=== PATIENT | female | born 1945 | race Caucasian/White ===

== ENCOUNTER 2016-06-08 13:02 | Inpatient (IN) | payer OTHER ==
[~2016-06-08] VITALS: Ht 157.5 cm; Wt 60.0 kg
[~2016-06-08 13:02] MED LIST: ALEN70TA30 PO; DOCU-144 PO; POLY17PO6 PO
[2016-06-08 13:11] VITALS: Ht 157.5 cm; Wt 60.0 kg
[2016-06-08] MEDS ORDERED: morphine 4 MG/ML VIAL IV STA (16:10)
[2016-06-08] MEDS ORDERED: SOD CHLORIDE 0.9% 1,000 ML IV STA (16:10)
[2016-06-08] MEDS ORDERED: ONDANSETRON 4 MG INJ IV STA ×2 (16:10→21:18)
[2016-06-08 16:42] LABS: ADD SCAN DIFF NO
[2016-06-08 16:44] LABS: BASOPHILS % 0.2 % (0.0-2.0); EOSINOPHILS % 0.2 % (0.0-7.0); HEMOGLOBIN 11.7 g/dl (12.0-16.0); LYMPHOCYTES # 0.7 10^3/ul (0.8-2.9); LYMPHOCYTES % 11.3 % (15.0-51.0); MEAN CORPUSCULAR HGB CONC 34.4 g/dl (32.0-37.0); MEAN CORPUSCULAR VOLUME 92.9 fl (82.0-101.0); MEAN PLATELET VOLUME 9.4 fl (7.4-10.4); MONOCYTE # 0.3 10^3/ul (0.3-0.9); NEUTROPHIL # 5.2 10^3/ul (1.6-7.5); NEUTROPHILS % 82.8 % (39.0-77.0); PLATELET COUNT 229 10^3/UL (140-415); RED BLOOD COUNT 3.66 10^6/ul (4.20-5.40); RED CELL DISTRIBUTION WIDTH 13.7 % (11.5-14.5); WHITE BLOOD COUNT 6.2 10^3/ul (4.8-10.8)
[2016-06-08 16:56] LABS: INR 0.9; PROTIME 12.1 Sec (12.2-14.2); PT RATIO 0.9
[2016-06-08 16:57] LABS: PARTIAL THROMBOPLASTIN TIME 22.9 Sec (25.0-35.0)
[2016-06-08 17:00] LABS: ADD UMIC YES; URINE BILIRUBIN (Dip) NEGATIVE (NEGATIVE); URINE BLOOD (Dip) TRACE (NEGATIVE); URINE COLOR LT. YELLOW (YELLOW); URINE GLUCOSE (Dip) NEGATIVE (NEGATIVE); URINE KETONES (Dip) TRACE (NEGATIVE); URINE LEUKOCYTE ESTERASE (Dip) NEGATIVE (NEGATIVE); URINE NITRITE (Dip) NEGATIVE (NEGATIVE); URINE TOTAL PROTEIN (Dip) NEGATIVE (NEGATIVE); URINE UROBILINOGEN (Dip) 0.2 E.U./dL (0.1-1.0)
[2016-06-08 17:04] LABS: ALANINE AMINOTRANSFERASE 24 IU/L (13-69); ALBUMIN 4.2 g/dl (3.3-4.9); ALBUMIN/GLOBULIN RATIO 1.23; ALKALINE PHOSPHATASE 56 IU/L (42-121); AMYLASE 87 U/L (11-123); ANION GAP 10 (8-16); ASPARTATE AMINO TRANSFERASE 23 IU/L (15-46); BILIRUBIN,INDIRECT 0.7 mg/dl (0-1.1); BILIRUBIN,TOTAL 0.7 mg/dl (0.2-1.3); BLOOD UREA NITROGEN 15 mg/dl (7-20); CARBON DIOXIDE 26 mmol/L (21-31); CHLORIDE 100 mmol/L (97-110); CREATININE 0.55 mg/dl (0.44-1.00); GLUCOSE 114 mg/dl (70-220); POTASSIUM 3.7 mmol/L (3.5-5.1); SODIUM 132 mmol/L (135-144); TOTAL PROTEIN 7.6 g/dl (6.1-8.1)
[2016-06-08 17:09] LABS: SQUAMOUS EPITHELIAL CELL,UR FEW; URINE RBCS 0-2 /HPF (0)
[2016-06-08 17:16] LABS: TROPONIN-I < 0.012 ng/ml (0.00-0.12)
[2016-06-08] MEDS ORDERED: SOD CHLORIDE 0.9% 100 ML ONE (17:29)
[2016-06-08] MEDS ORDERED: IOHEXOL 300MG/ML 150 ML BTL ONE (17:29)
[2016-06-08] MEDS ORDERED: BARIUM SULF 2% 450 ML BTL (BERRY SMOOTHIE) PO ONE ×2 (17:39)
--- NOTE | 2016-06-08 18:19 | ERA ---
ER Documentation Chief Complaint Date/Time DATE: 06/08/16 TIME: 18:14 Chief Complaint Pt with AP, vomiting X 2 days and GLF this morning. HPI This is a very pleasant 70-year-old female presents the emergency department after she had a brief transient loss of consciousness at roughly 10 AM, 2 hours before she arrived to the hospital. The patient indicates that just prior to the brief transient loss of consciousness the patient had been feeling lightheaded and dizzy. She states she attempted to grab onto a piece of furniture when she had syncopized and hit the back of her head onto a tile surface. She is complaining of a mild headache which she states is bandlike. The patient also indicates that yesterday evening at 10 PM she had developed a severe lower abdominal pain. She indicates that the pain has been intermittent at 5 AM this morning, 5 hours before the syncope, the patient had a large bowel movement and felt severe nausea. She induced an episode of nonbloody nonbilious emesis. She denies any hemoptysis hematemesis or melanotic stools. 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 She has had previous small bowel obstructions in the past which she indicates feels similar to the abdominal pain she has been experiencing since 10 PM last night. The patient denies any chest pain or pressure that radiates to the neck arm back or jaw. She stated she had no headache prior to the syncope episode. She also indicates she has not experienced any neck pain or numbness or tingling of her upper or lower extremities. She has no shortness of breath at rest or exertion. She denies any recent travel or prolonged immobilization. She is no chest pain or pressure that radiates to the neck arm back or jaw ROS All systems reviewed and are negative except as per history of present illness. Medications Home Meds Active Scripts Docusate Sodium* (Colace*) 100 Mg Capsule, 100 MG PO BID for 30 Days, CAP Prov:KEVEN GIFFORD M. 01/23/16 Alendronate Sodium* (Fosamax*) 70 Mg Tablet, 70 MG PO Th@0730 for 30 Days, TAB Prov:KEVEN GIFFORD M. 01/23/16 Discontinued Scripts Polyethylene Glycol* (Miralax*) 17 Gm Powd.pack, 17 GM PO DAILY for 30 Days, 1 Refill Prov:KEVEN GIFFORD 01/23/16 Allergies Allergies: Coded Allergies: No Known Allergies (Verified Allergy, Mild, 06/08/16) PMhx/Soc History of Surgery: Yes (s/puterin resection/chemo,hysterectomy, appendectomy, multiple sx) Anesthesia Reaction: No Hx 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 Disorder: No Hx Respiratory Disorders: No Hx Cardiac Disorders: No Hx Psychiatric Problems: No Hx Miscellaneous Medical Probl: Yes (cervical ca, uterin ca) Hx Alcohol Use: No Hx Substance Use: No Hx Tobacco Use: No Smoking Status: Never smoker Physical Exam Vitals Vital Signs Date Time Temp Pulse Resp B/P Pulse Ox O2 Delivery O2 Flow Rate FiO2 06/08/16 19:00 98.6 68 16 130/86 99 Room Air 06/08/16 13:11 99.4 89 18 111/62 96 Physical Exam Constitutional:Well-developed. Well-nourished. HEENT:Normocephalic. Atraumatic.Pupils were equal round reactive to light. Moist mucous membranes.No tonsillar exudates. No nasal septal hematoma. No hemotympanum. Funduscopy exam shows sharp optic disc bilaterally Neck: No nuchal rigidity. No lymphadenopathy. No posterior cervical spine tenderness or step-offs. Respiratory: Not using accessory muscles of respiration.Lungs were clear to auscultation bilaterally. No rhonchi. No rales. No wheezing. Cardiovascular: Regular rate regular rhythm.No murmurs. No rubs were appreciated.S1, S2 normal. Distal pulses are palpable 2+ bilaterally. GI: Abdomen was soft. Mild tenderness in the left and the right lower quadrant with hyperactive bowel sounds. Non Distended. No pulsatile abdominal masses or bruits. No rebound. No guarding. Muscle skeletal: Full range of motion of both the upper and lower extremities bilaterally.Normal muscle tone.No assymetrical calf tenderness or swelling. Skin: No petechia, no purpura. No lesions on the palms or the soles of the feet. No maculopapular rash. NEURO: Patient was alert, awake, orientated x3.No facial droop. Gait observed and normal with no ataxia.Speech had regular rate and rhythm. No focal neurological deficits. Result Diagram: 06/08/16 1620 06/08/16 1620 Results 24 hrs Laboratory Tests Test 06/08/16 16:20 06/08/16 16:38 White Blood Count 6.210^3/ul Red Blood Count 3.6610^6/ul Hemoglobin 11.7g/dl Hematocrit 34.0% Mean Corpuscular Volume 92.9fl Mean Corpuscular Hemoglobin 32.0pg Mean Corpuscular Hemoglobin Concent 34.4g/dl Red Cell Distribution Width 13.7% Platelet Count 65001^3/UL Mean Platelet Volume 9.4fl Neutrophils % 82.8% Lymphocytes % 11.3% Monocytes % 5.0% Eosinophils % 0.2% Basophils % 0.2% Nucleated Red Blood Cells % 0.0/100WBC Neutrophils # 5.210^3/ul Lymphocytes # 0.710^3/ul Monocytes # 0.310^3/ul Eosinophils # 0.010^3/ul Basophils # 0.010^3/ul Nucleated Red Blood Cells # 0.010^3/ul Prothrombin Time 12.1Sec Prothrombin Time Ratio 0.9 INR International Normalized Ratio 0.90 Activated Partial Thromboplast Time 22.9Sec Sodium Level 132mmol/L Potassium Level 3.7mmol/L Chloride Level 100mmol/L Carbon Dioxide Level 26mmol/L Anion Gap 10 Blood Urea Nitrogen 15mg/dl Creatinine 0.55mg/dl Glucose Level 114mg/dl Calcium Level 9.0mg/dl Total Bilirubin 0.7mg/dl Direct Bilirubin 0.00mg/dl Indirect Bilirubin 0.7mg/dl Aspartate Amino Transf (AST/SGOT) 23IU/L Alanine Aminotransferase (ALT/SGPT) 24IU/L Alkaline Phosphatase 56IU/L Troponin I < 0.012ng/ml Total Protein 7.6g/dl Albumin 4.2g/dl Globulin 3.40g/dl Albumin/Globulin Ratio 1.23 Amylase Level 87U/L Lipase 60U/L Urine Color LT. YELLOW Urine Clarity CLEAR Urine pH 7.0 Urine Specific [place] 1.010 Urine Ketones TRACE Urine Nitrite NEGATIVE Urine Bilirubin NEGATIVE Urine Urobilinogen 0.2 E.U./dL Urine Leukocyte Esterase NEGATIVE Urine Microscopic RBC 0-2/HPF Urine Microscopic WBC 0-2/HPF Urine Squamous Epithelial Cells FEW Urine Hemoglobin TRACE Urine Glucose NEGATIVE% Urine Total Protein NEGATIVE Current Medications Medications (Trade) Dose Ordered Sig/[place] Route PRN Reason Start Time Stop Time Status Last Admin Dose Admin Sodium Chloride (NS) 1,000 ml @ 1,000 mls/hr Q1H STAT IV 06/08/16 16:10 06/08/16 17:09 DC 06/08/16 16:57 Morphine Sulfate (morphine) 4 mg ONCE STAT IV 06/08/16 16:10 06/08/16 16:13 DC 06/08/16 16:59 Ondansetron HCl (Zofran Inj) 4 mg ONCE STAT IV 06/08/16 16:10 06/08/16 16:13 DC 06/08/16 16:57 IV Flush 10 ml 10 ml STK-MED ONCE .ROUTE 06/08/16 17:29 06/08/16 17:30 DC Sodium Chloride (NS) 100 ml @ ud STK-MED ONCE .ROUTE 06/08/16 17:29 06/08/16 17:30 DC Iohexol (Omnipaque 300mg/ ml) 150 ml STK-MED ONCE .ROUTE 06/08/16 17:29 06/08/16 17:30 DC Barium Sulfate (Readi-Cat 2 ( Peña Smoothie )) 450 ml STK-MED ONCE PO 06/08/16 17:39 06/08/16 17:40 DC 06/08/16 18:26 Barium Sulfate (Readi-Cat 2 ( Peña Smoothie )) 450 ml STK-MED ONCE PO 06/08/16 17:39 06/08/16 17:40 DC 06/08/16 18:30 Ondansetron HCl (Zofran Inj) 4 mg ONCE STAT IV 06/08/16 21:18 06/08/16 21:19 DC 06/08/16 21:22 Morphine Sulfate (morphine) 4 mg ONCE ONCE IV 06/08/16 21:39 06/08/16 21:40 DC 06/08/16 21:45 Ondansetron HCl (Zofran Inj) 4 mg ER BRIDGE PRN IV NAUSEA AND/OR VOMITING 06/08/16 22:00 06/09/16 21:59 Procedures/MDM The patient presented to the emergency department with a transient loss of consciousness with loss of postural tone, suggestive of a syncope episode. The differential diagnosis of syncope is vast but my workup considered common benign disorders to life-threatening processes. Therefore my differential diagnosis included but was not limited to reflex-mediated syncope such as vasovagal or carotid sinus syncope from coughing, sneezing, micturition, or GI stimulation (eg, defecation). Other etiologies in my workup included orthostatic hypotension which could cause syncope from an abrupt drop in venous return to heart from volume depletion. An EKG and cardiac enzymes were obtained to rule out cardiac arrhythmias or ischemia. Cardiopulmonary disease such as valvular disease, hypertrophic cardiomyopathy, pericardial tamponade, or pulmonary embolism were considered as a factor causing the patients syncope episode. The patient had no difference in blood pressure in both arms that could suggest aortic dissection or subclavian steal syndrome. Rectal exam was negative for fecal occult blood that could suggest GI bleeding. Ancillary laboratory work was obtained to evaluate for metabolic or electrolyte abnormalities. The patient had no witnessed brief tonic movements that could suggest postictal confusion. The patient was placed on a blueprint assembler, continuous pulse oximetry and IV access established by nursing staff. The patient received a liter bolus of 0.9 normal saline and intravenous morphine and Zofran for analgesic control. 12 Lead EKG tracing ordered and reviewed by myself showed: Normal sinus rhythm of 75 bpm and no arrhythmia. OH interval normal. QRS duration normal. No ST segment elevation No ST segment depression. No changes consistent with acute ischemia. I obtained a CT scan of the patient's head which showed no acute intracerebral hemorrhage mass-effect or midline shift. I did indicate to the patient the syncope could have been a result of a vasovagal episode given that she has been experience in pain and had an episode of emesis as well as a large bowel movement. However I did explain to the patient I felt she required further evaluation and therefore will be admitted in serious condition to the telemetry service. This patient also complained of abdominal pain. My differential diagnosis included but was not limited to abdominal aortic aneurysm, appendicitis, pancreatitis, perforated peptic ulcer, perforated viscus, Boerhaave's syndrome or visceral pain such as diverticulitis, DKA, esophagitis, hepatitis or bowel obstruction. CT scan of the abdomen or and reviewed by myself as well as the radiologist indicated that the patient did have a small bowel obstruction. At this time the patient had an NG tube placed to low continuous suctioning. I spoke with the surgeon Dr. Banks who kindly requested a small bowel follow- through that was ordered by myself. The patient was made n.p.o. She will be admitted to the telemetry service in serious condition with an anticipated stay of greater than 2 midnights to the hospitalist Dr. Garvin Critical Care: Time: 40 minutes Treatments/Evaluations: Close monitoring and treatment of unstable vital signs, cardiorespiratory, and neurologic status, while maintaining tight balance of fluid, respiratory, and cardiac interventions. Time does not include performing any of the above billable procedures. Departure Diagnosis: Primary Impression: Syncope Qualified Code: R55 - Syncope, unspecified syncope type Additional Impression: SBO (small bowel obstruction) Condition: Serious JOHNNY ONTIVEROS June 08, 2016 18:19
--- NOTE | 2016-06-08 19:19 | RADRPT ---
PROCEDURE: Noncontrast CT Head. CLINICAL INDICATION: Syncope. TECHNIQUE: Noncontrast CT of the head was obtained. The administered radiation dose was CTDI vol = 45 mGy, DLP = 720.23 mGy-cm. One or more of the following dose reduction techniques were used: Autom ated exposure control, Adjustment of the mA and/or kV according to patient size, or Use of iterative reconstruction technique. COMPARISON: Noncontrast CT of the head from January 22, 2009. FINDINGS: The ventricles and sulci are within normal limits. There are mild vascular calcifications within the intracranial carotid arteries. There is no loss of guevara-white differentiation to suggest acute territorial infarction. There is no acute intracranial hemorrhage or extra-axial fluid collection. There is no mass effect. No midline shift is identified. The orbits are within normal limits. There is minimal right sphenoid sinus mucosal thickening. No destructive osseous lesion is identified. IMPRESSION: No significant change. No acute intracranial hemorrhage or extra-axial fluid collection. Further findings as detailed above. RPTAT: PP .Clayton Franklin MD, MD Date Time Electronically viewed and signed by .Clayton Franklin MD, on 06/08/2016 19:18 .F/
--- NOTE | 2016-06-08 20:07 | RADRPT ---
PROCEDURE: CT Abdomen and Pelvis without contrast. CLINICAL INDICATION: Severe abdominal pain with history of small bowel obstruction. TECHNIQUE: A CT scan of the abdomen and pelvis was performed without intravenous contrast. Oral co ntrast was administered prior to the examination. Coronal and sagittal reformatted images were gener ated. Images were reviewed on a high-resolution PACS workstation. CTDIvol: 7.74 mGy. DLP: 441.78 mGy -cm. One or more of the following dose reduction techniques were used: - Automated exposure control. - Adjustment of the mA and/or kV according to patient size. - Use of iterative reconstruction technique. COMPARISON: 01/15/2016 FINDINGS: There is mild to moderate atelectasis in both lower lungs. Evaluation of the abdominal and pelvic viscera is limited by the lack of intravenous contrast. The liver is unremarkable. The gallbladder is normal in appearance. The common bile duct is not dila jatinder. The spleen is not enlarged. No pancreatic lesion is identified and there is no pancreatic ducta l dilatation. The adrenal glands are unremarkable. The kidneys are normal in size. There is no perinephric fat stranding. No hydronephrosis is seen. No urinary stone is identified. There are multiple dilated small bowel loops in the central and left abdomen. The small bowel is co llapsed. Precise transition point is not definitively identified, however this is consistent with a small bowel obstruction. There is no bowel wall thickening.There is minimal sigmoid colon diverti culosis. The appendix is not identified. The urinary bladder is distended with fluid. The patient is status post hysterectomy. No adnexal ma ss is seen. No lymphadenopathy is identified. There is no ascites. No pneumoperitoneum is seen. There are mild a rterial calcifications. Small fat containing midline pelvic wall hernias are noted. No suspicious osseous lesion is idenitified. There is an old nonunited right pubic fracture. A mode rate chronic L5 compression fracture is also noted. IMPRESSION: 1. Small bowel obstruction. The precise transition point is not definitively identified. This cou ld be further evaluated with a small bowel follow-through examination if clinically warranted. 2. Distended urinary bladder, nonspecific. Query urinary retention. 3. Status post hysterectomy. 4. Mild atherosclerotic arterial calcifications. 5. 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 6. Small fat containing midline pelvic wall hernias. RPTAT: HTAR .Jey Adler MD, MD Date Time Electronically viewed and signed by .Jey Adler MD, MD on 06/08/2016 20:06 .R/
[2016-06-08] MEDS ORDERED: morphine 4 MG/ML VIAL IV ONE (21:39)
[2016-06-08] MEDS ORDERED: ONDANSETRON 4 MG INJ IV PRN (22:00)
[2016-06-09] VITALS (11 sets, daily range): BP systolic 101–119; BP diastolic 55–85; PULSE 73–90; RESP 18–22; TEMP 98.2
[2016-06-09] MEDS ORDERED: NACL 0.9% 3 ML SYG IV SCH (01:00)
[2016-06-09] MEDS ORDERED: ONDANSETRON 4 MG INJ IV PRN (01:00)
[2016-06-09] MEDS: SOD CHLORIDE 0.9% 1,000 ML IV SCH ×6 (01:00→22:31)
--- NOTE | 2016-06-09 01:15 | HP ---
Date/Time of Note Date/Time of Note DATE: 06/09/16 TIME: 00:50 Assessment/Plan VTE Prophylaxis VTE Prophylaxis Intervention: SCD's Lines/Catheters Central line still needed: No Urinary Cath still in place: No Assessment/Plan Chief Complaint/Hosp Course This is a 70-year-old female being admitted to [facility] for: #1 small bowel obstruction: Likely secondary to adhesions from multiple abdominal surgeries/ radiation. Small bowel follow-through was ordered however was not able to be adequately completed, will need to reorder the test tomorrow to assess for the transition point. NG tube in place. N.p.o. Normal saline at 100 cc an hour. Zofran 4 mg IV every 6 hours as needed nausea. Dr. Banks notified by the ED physician. #2 Mild hyponatremia: We will continue IV fluids at this time as per #1 and continue to follow with BMP in the a.m.. #3 osteoporosis: Stable we will hold current home medications at this time and restart once SPO resolves. #4 DVT and GI prophylaxis: SCDs, PPI Problems: HPI/ROS Admit Date/Time Admit Date/Time 06/07/2016 Hx of Present Illness This is a very pleasant 70-year-old female with a history of multiple abdominal surgeries who presented to the emergency department after a brief episode of loss of consciousness during the day. The patient indicates that just prior to the brief transient loss of consciousness the patient had been feeling lightheaded and dizzy. She states she attempted to grab onto a piece of furniture when she had syncopized and hit the back of her head onto a tile surface. She is complaining of a mild headache which she states is bandlike. The patient also indicates that yesterday evening at 10 PM she had developed a severe lower abdominal pain. She indicates that the pain has been intermittent at 5 AM this morning, 5 hours before the syncope, the patient had a large bowel movement and felt severe nausea. She induced an episode of nonbloody nonbilious emesis. She denies any hemoptysis hematemesis or melanotic stools. 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 She has had previous small bowel obstructions in the past which she indicates feels similar to the abdominal pain she has been experiencing since 10 PM last night. Her most recent surgery was approximately 8 years ago for a bladder issue. The patient denies any chest pain or pressure that radiates to the neck arm back or jaw. She stated she had no headache prior to the syncope episode. She also indicates she has not experienced any neck pain or numbness or tingling of her upper or lower extremities. She has no shortness of breath at rest or exertion. She denies any recent travel or prolonged immobilization. She is no chest pain or pressure that radiates to the neck arm back or jaw ROS Const: Negative for fever, chills, weight gain or weight loss, Eyes : No pain discharge or redness or change in visual acuity ENT: No pain, sore throat, congestion, congestion, dysphagia or discharge Respiratory: No shortness of breath, cough, sputum, wheezing, or pleuritic pain Cardiovascular: No chest pain, palpitation, PND, or edema GI : Abdominal pain has improved from before, has some nausea Genitourinary: No dysuria, hematuria, flank pain , discharge or CVA tenderness Musculoskeletal: No joint pain, back pain, neck pain, restricted range of motion in neck or joints Skin: No rash, bruising or hives Neuro: No headache, dizziness, syncope, seizure, focal weakness Endocrine: No polyuria, polydipsia, temperature intolerance Psych: No hallucination, depression, anxiety or suicidal ideation PMH/Family/Social Past Medical History Osteoporosis, cervical cancer Past Surgical History Multiple abdominal surgeries 7, including total abdominal hysterectomy, appendectomy, bladder surgery, status post radiation for cervical cancer Family History Significant Family History: heart disease, other (Father: Liver cirrhosis) Social History Denies any smoking, denies any alcohol use Smoking Status: Never smoker Exam/Review of Systems Vital Signs Vitals Vital Signs Date Time Temp Pulse Resp B/P Pulse Ox O2 Delivery O2 Flow Rate FiO2 06/09/16 00:09 62 16 129/80 99 Room Air 06/08/16 19:00 98.6 Exam Exam Vitals General: The patient is well-developed, well-nourished woman in no acute distress. The patient is alert oriented -3 lying comfortably in bed. HEENT: Atraumatic, normocephalic. The pupils are equal, round and reactive. Extraocular motor are intact, NG tube in place Neck: Supple with full range of motion. No rigidity or meningismus Chest: Nontender Lungs: Clear to auscultation bilaterally no crackles rales or wheezing Heart: Normal S1-S2, Regular rhythm and rate. No murmur Abdomen: Soft, hypoactive bowel sounds, tender to palpation along the left abdominal quadrants Extremities: Normal to inspection, no edema no cyanosis Neurologic: Normal mental status, speech normal, cranial nerves II through XII are intact, motor and sensory are intact, no focal weakness Additional Comments CT abdomen pelvis IMPRESSION: 1. Small bowel obstruction. The precise transition point is not definitively identified. This could be further evaluated with a small bowel follow-through examination if clinically warranted. 2. Distended urinary bladder, nonspecific. Query urinary retention. 3. Status post hysterectomy. 4. Mild atherosclerotic arterial calcifications. 5. 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 6. Small fat containing midline pelvic wall hernias. Labs Result Diagram: 06/08/16 1620 06/08/16 1620 JENNIFER LOZANO June 09, 2016 01:06
[2016-06-09] MEDS: PANTOPRAZOLE 40 MG INJ IV SCH (05:12)
[2016-06-09] MEDS ORDERED: DIATR MEGLU/DIATRIZOATE SODIUM 120 ML BTL ONE (10:06)
[2016-06-09] MEDS: morphine 2 MG INJ IV PRN ×2 (11:55→18:33)
--- NOTE | 2016-06-09 13:00 | RADRPT ---
PROCEDURE: XR Abdomen. CLINICAL INDICATION: Abdomen pain. Small bowel obstruction. TECHNIQUE: AP supine abdomen x-ray. COMPARISON: CT scan of the abdomen and pelvis dated 06/08/2016. FINDINGS: A nasogastric tube is present with the tip in the stomach. Contrast which was administered for the CT scan is now all in the colon or eliminated from the gastrointestinal tract. There are dilated lo ops of small bowel in the left side of the abdomen measuring up to 4.2 cm, similar to the prior stud y. Surgical clips are present in the mid abdomen and pelvis. The osseus structures are unremarkable. IMPRESSION: 1. Partial small bowel obstruction with all of the gastrointestinal contrast seen on the prior CT s can L in the colon or eliminated from the gastrointestinal tract. 2. Nasogastric tube tip in the stomach. RPTAT: QQ .Robby Galvez MD, MD Date Time Electronically viewed and signed by .Robby Galvez MD, on 06/09/2016 13:00 .R/
--- NOTE | 2016-06-09 13:17 | PN ---
Date/Time of Note Date/Time of Note DATE: 06/09/16 TIME: 13:14 Assessment/Plan VTE Prophylaxis VTE Prophylaxis Intervention: LMWH Lines/Catheters IV [facility]ter [facility]from [facility]): [place] Urinary Cath still in place: No Assessment/Plan Chief Complaint/Hosp Course Assessment 1. Small bowel obstruction in a patient with a history of ovarian cancer status post total abdominal hysterectomy in the past. Patient states she has a history of recurrent small bowel obstruction. 2. Syncopal episode possibly related to bowel obstruction 3. History of osteoporosis Plan 1. Echocardiogram and carotid Dopplers 2. Pending general surgery evaluation with Dr. Banks 3. Continue nasogastric tube to suction IV fluids and monitor labs Disposition Transfer to [facility] Problems: Subjective 24 Hr Interval Summary Free Text/Dictation Patient doing okay this morning has mild abdominal discomfort but no nausea vomiting Nasogastric tube in place Exam/Review of Systems Vital Signs Vitals Vital Signs Date Time Temp Pulse Resp B/P Pulse Ox O2 Delivery O2 Flow Rate FiO2 06/09/16 12:38 79 06/09/16 11:48 98.1 19 116/64 94 06/09/16 09:30 Room Air Intake and Output 06/08/16 06/08/16 06/09/16 15:00 23:00 07:00 Intake Total 1000 ml 450 ml Balance 1000 ml 450 ml Exam GENERAL: Well-nourished well-developed lady comfortable at rest VITAL SIGNS: per chart NECK: Supple. No JVD or lymphadenopathy. CARDIAC EXAM: S1, S2. No added sounds or murmurs. CHEST: clear bilaterally, No added sounds, rales or wheezes ABDOMEN: Soft, nontender. No guarding or rebound. EXTREMITIES: No cyanosis, clubbing or edema. NEUROLOGIC: Generalized weakness. No focal deficits. Results CT abdomen IMPRESSION: 1. Small bowel obstruction. The precise transition point is not definitively identified. This could be further evaluated with a small bowel follow-through examination if clinically warranted. 2. Distended urinary bladder, nonspecific. Query urinary retention. 3. Status post hysterectomy. 4. Mild atherosclerotic arterial calcifications. 5. 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 6. Small fat containing midline pelvic wall hernias. Result Diagram: 06/08/16 1620 06/08/16 1620 Results 24 hrs Laboratory Tests Test 06/08/16 16:20 06/08/16 16:38 White Blood Count 6.2 # Red Blood Count 3.66 L Hemoglobin 11.7 L Hematocrit 34.0 L Mean Corpuscular Volume 92.9 Mean Corpuscular Hemoglobin 32.0 Mean Corpuscular Hemoglobin Concent 34.4 Red Cell Distribution Width 13.7 Platelet Count 229 Mean Platelet Volume 9.4 # Neutrophils % 82.8 H Lymphocytes % 11.3 L Monocytes % 5.0 Eosinophils % 0.2 Basophils % 0.2 Nucleated Red Blood Cells % 0.0 Neutrophils # 5.2 Lymphocytes # 0.7 L Monocytes # 0.3 Eosinophils # 0.0 Basophils # 0.0 Nucleated Red Blood Cells # 0.0 Prothrombin Time 12.1 L Prothrombin Time Ratio 0.9 INR International Normalized Ratio 0.90 Activated Partial Thromboplast Time 22.9 L Sodium Level 132 L Potassium Level 3.7 Chloride Level 100 Carbon Dioxide Level 26 Anion Gap 10 Blood Urea Nitrogen 15 Creatinine 0.55 Glucose Level 114 Calcium Level 9.0 Total Bilirubin 0.7 Direct Bilirubin 0.00 Indirect Bilirubin 0.7 Aspartate Amino Transf (AST/SGOT) 23 Alanine Aminotransferase (ALT/SGPT) 24 Alkaline Phosphatase 56 Troponin I < 0.012 Total Protein 7.6 Albumin 4.2 Globulin 3.40 H Albumin/Globulin Ratio 1.23 Amylase Level 87 Lipase 60 Urine Color LT. YELLOW Urine Clarity CLEAR Urine pH 7.0 Urine Specific [place] 1.010 Urine Ketones TRACE H Urine Nitrite NEGATIVE Urine Bilirubin NEGATIVE Urine Urobilinogen 0.2 E.U./dL Urine Leukocyte Esterase NEGATIVE Urine Microscopic RBC 0-2 Urine Microscopic WBC 0-2 Urine Squamous Epithelial Cells FEW Urine Hemoglobin TRACE Urine Glucose NEGATIVE Urine Total Protein NEGATIVE Medications Medications Current Medications Sodium Chloride 1,000 ml @ 100 mls/hr Q10H IV ; Start 06/09/16 at 01:00 Sodium Chloride (NS) 1,000 ml @ 100 mls/hr Q10H IV Last administered on 11:41; Admin Dose 100 MLS/HR; Start 06/09/16 at 00:51 Pantoprazole (Protonix Iv) 40 mg DAILY@06 IV Last administered on 06/09/16 05: 12; Admin Dose 40 MG; Start 06/09/16 at 06:00 Ondansetron HCl (Zofran Inj) 4 mg Q4H PRN IV NAUSEA AND/OR VOMITING; Start 06/09 at 01:00 Morphine Sulfate (morphine) 2 mg Q4H PRN IV PAIN Last administered on 06/09/16t 11:55; Admin Dose 2 MG; Start 06/09/16 at 01:00 CASTRO KAM MD, [facility] June 09, 2016 13:17
--- NOTE | 2016-06-09 21:22 | CONS ---
DATE OF ADMISSION: 06/08/2016 DATE OF CONSULTATION: 06/09/2016 SURGICAL CONSULTATION REASON FOR CONSULTATION: Small-bowel obstruction. HISTORY OF PRESENT ILLNESS: The patient is a 70-year-old female, who presented to the emergency spike m because of the loss of consciousness and a fall. Also noted that the patient complained of abdomi nal pain with nausea and vomiting, although she had a bowel movement earlier in the day. Abdomen an d pelvis CT was performed and was compatible with a small-bowel obstruction. This morning's x-ray s howed all the contrast to be in the colon with some residual small bowel dilatation. The patient fe els markedly symptomatically improved and her NG output has been minimal. She has since passed gas and is now feeling thirsty. I have been asked to see the patient in regards to small-bowel obstruct ion. Of note, is the fact that the patient is 13 years status post TAHBSO for ovarian carcinoma. S he has had several hospitalizations in the past for bowel obstruction, which all resolved with nonop erative management. She states that her symptoms last night were similar to those recent episodes. REVIEW OF SYSTEMS: HEAD, EARS, EYES, NOSE, THROAT: Unremarkable except for dizziness, as noted abo ve. PULMONARY: No history of pneumonia or shortness of breath. CARDIAC: No history of chest pain, TN, or arrhythmia. ABDOMEN: As in the HPI. EXTREMITIES: Unre markable. OUTPATIENT MEDICATIONS: Include Colace, Fosamax, and MiraLAX. ALLERGIES: NONE. PHYSICAL EXAMINATION: GENERAL: The patient is an alert, oriented 70-year-old female, who is in no acute distress. She st ates that she feels markedly improved. There is a nasogastric tube in place. LUNGS: Clear. HEART: Regular rhythm. ABDOMEN: Entirely soft and nontender without masses. There is a well-healed lower vertical midline scar. EXTREMITIES: Unremarkable. LABORATORY DATA: The patient's hematocrit is 34 with a white count of 6200 without left shift. IMPRESSION: Partial small-bowel obstruction appears to be resolving clinically. PLAN: We will discontinue the NG tube and start clear liquids. A small bowel follow through has be en ordered for the morning. Further recommendations will be based on the patient's further workup a nd clinical course. Dictated By: TRENTON REYES/JOY Conf#: [id number] [facility]#: [id number]
[2016-06-10] VITALS (13 sets, daily range): BP systolic 92–110; BP diastolic 50–57; PULSE 69–82; RESP 17–19
[2016-06-10] MEDS: PANTOPRAZOLE 40 MG INJ IV SCH (05:46)
[2016-06-10] MEDS: SOD CHLORIDE 0.9% 1,000 ML IV SCH ×3 (05:46→15:49)
--- NOTE | 2016-06-10 06:00 | RADRPT ---
PROCEDURE: US Carotids. CLINICAL INDICATION: Bruit, syncope TECHNIQUE: Multiple sonographic of the carotid arteries were obtained utilizing guevara scale imaging . Color and Doppler imaging was performed. The images were reviewed on a PACS workstation. COMPARISON: No prior studies are available for comparison. FINDINGS: RIGHT: CCA 72.4 cm/sec Prox ICA 52.2 cm/sec Mid ICA 44.4 cm/sec Dist ICA 50.1 cm/sec ECA 66.5 cm/sec ICA/CCA 0.8 LEFT: CCA 63.1 cm/sec Prox ICA 64.4 cm/sec Mid ICA 51.6 cm/sec Dist ICA 56.3 cm/sec ECA 59.7 cm/sec ICA/CCA 1.1 Antegrade flow is seen within the vertebral arteries bilaterally. No significant plaque is seen with in the carotid system bilaterally. However, no evidence for hemodynamically significant stenosis or occlusion is identified. IMPRESSION: 1. No sonographic evidence for hemodynamically significant stenosis or occlusion by NASCET criteria . 2. Antegrade flow seen within the vertebral arteries bilaterally. RPTAT: HH .Nanda Pulliam MD, MD Date Time Electronically viewed and signed by .Nanda Pulliam MD, on 06/10/2016 06:00 .G/
[2016-06-10 08:22] LABS: ADD SCAN DIFF NO
--- NOTE | 2016-06-10 08:25 | PN ---
DATE: SUBJECTIVE: The patient is markedly symptomatically improved. She states that she feels much better . She is passing gas and had a small bowel movement. Her abdominal examination is benign. PLAN: Awaiting SBFT today. Further recommendations will be forthcoming, based on the patient's fur ther workup and clinical course. Dictated By: TRENTON REYES/JOY Conf#: [id number] DID#: [id number]
[2016-06-10 08:41] LABS: BASOPHILS % 0.5 % (0.0-2.0); EOSINOPHILS % 0.7 % (0.0-7.0); HEMATOCRIT 32.6 % (37.0-47.0); HEMOGLOBIN 10.5 g/dl (12.0-16.0); LYMPHOCYTES # 0.9 10^3/ul (0.8-2.9); LYMPHOCYTES % 20.7 % (15.0-51.0); MEAN CORPUSCULAR HEMOGLOBIN 31.5 pg (29.0-33.0); MEAN CORPUSCULAR HGB CONC 32.2 g/dl (32.0-37.0); MEAN CORPUSCULAR VOLUME 97.9 fl (82.0-101.0); MEAN PLATELET VOLUME 10.2 fl (7.4-10.4); MONOCYTE # 0.3 10^3/ul (0.3-0.9); MONOCYTES % 6.5 % (0.0-11.0); NEUTROPHIL # 3.1 10^3/ul (1.6-7.5); NEUTROPHILS % 71.1 % (39.0-77.0); PLATELET COUNT 198 10^3/UL (140-415); RED BLOOD COUNT 3.33 10^6/ul (4.20-5.40); RED CELL DISTRIBUTION WIDTH 14.2 % (11.5-14.5); WHITE BLOOD COUNT 4.3 10^3/ul (4.8-10.8)
[2016-06-10 08:50] LABS: ALBUMIN 3.2 g/dl (3.3-4.9)
[2016-06-10 08:51] LABS: POTASSIUM 4.4 mmol/L (3.5-5.1)
[2016-06-10 08:53] LABS: ALBUMIN/GLOBULIN RATIO 1.14; BILIRUBIN,INDIRECT 0.9 mg/dl (0-1.1); BILIRUBIN,TOTAL 0.9 mg/dl (0.2-1.3); CREATININE 0.52 mg/dl (0.44-1.00)
[2016-06-10 08:54] LABS: CALCIUM 7.9 mg/dl (8.4-10.2)
[2016-06-10] MEDS: HYDROCODONE/APAP (5/325) TAB PO PRN ×2 (10:17→21:42)
--- NOTE | 2016-06-10 13:39 | RADRPT ---
PROCEDURE: XR Abdomen. CLINICAL INDICATION: Abdomen pain. TECHNIQUE: AP supine abdomen x-ray. COMPARISON: 06/09/2016. FINDINGS: There is contrast in the colon from the prior CT scan. Previously noted dilated small bowel in the left side of the abdomen is markedly improved. Multiple surgical clips are present in the pelvis. There are no abnormal calcifications overlying the urinary tracts. There are degenerative changes of the spine. IMPRESSION: 1. Improved partial small bowel obstruction. RPTAT: QQ .Robby Galvez MD, Date Time Electronically viewed and signed by .Robby Galvez MD, on 06/10/2016 13:38 .R/
--- NOTE | 2016-06-10 15:04 | PN ---
Date/Time of Note Date/Time of Note DATE: 06/10/16 TIME: 14:57 Assessment/Plan VTE Prophylaxis VTE Prophylaxis Intervention: LMWH Lines/Catheters IV Catheter Type (from Nrs): Peripheral IV Urinary Cath still in place: No Assessment/Plan Assessment/Plan 1. Small bowel obstruction, likely resolved, advance diet 2. Syncopal episode possibly related to bowel obstruction, awaiting for echo report 3. History of osteoporosis Subjective 24 Hr Interval Summary Free Text/Dictation no dizziness, mo abdominal pain, tolerates liquid Exam/Review of Systems Vital Signs Vitals Vital Signs Date Time Temp Pulse Resp B/P Pulse Ox O2 Delivery O2 Flow Rate FiO2 06/10/16 12:39 98.2 71 18 101/51 96 Room Air Intake and Output 06/09/16 06/09/16 06/10/16 15:00 23:00 07:00 Intake Total 600 ml 250 ml Balance 600 ml 250 ml Exam Constitutional: alert, oriented, well developed Psych: nl mood/affect, no complaints Head: atraumatic, normocephalic Eyes: EOMI, PERRL, nl conjunctiva, nl lids ENMT: nl external ears & nose, nl lips & teeth, nl nasal mucosa & septum Neck: non-tender, supple Respiratory: clear to auscultation, normal air movement, No congested cough, No crackles/rales, No diminished breath sounds, No intercostal retraction, No labored breathing, No other, No respirations, No tactile fremitus, No wheezing Cardiovascular: nl pulses, regular rate and rhythm, No S3, No S4, No bruits, No diastolic murmur, No edema, No gallop, No irregular rhythm, No jugular venous distention (JVD), No murmurs/extra sounds, No other, No rub, No systolic murmur Gastrointestinal: nl liver, spleen, non-tender, soft, No ascites, No bowel sounds, No distended, No firm, No hepatomegaly, No mass , No other, No rebound or guarding, No splenomegaly, No surgical scars, No tender Musculoskeletal: nl extremities to inspection Extremities: normal pulses, No calf tenderness, No clubbing, No cyanosis, No edema, No other, No palpable cord, No pitting pedal edema, No tenderness 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, nl mental status, nl speech, nl strength Skin: nl turgor Lymph: nl lymph nodes Results Result Diagram: 06/10/16 0751 06/10/16 0751 Results 24 hrs Laboratory Tests Test 06/10/16 07:51 White Blood Count 4.3 #L Red Blood Count 3.33 L Hemoglobin 10.5 L Hematocrit 32.6 L Mean Corpuscular Volume 97.9 Mean Corpuscular Hemoglobin 31.5 Mean Corpuscular Hemoglobin Concent 32.2 Red Cell Distribution Width 14.2 Platelet Count 198 Mean Platelet Volume 10.2 Neutrophils % 71.1 Lymphocytes % 20.7 Monocytes % 6.5 Eosinophils % 0.7 Basophils % 0.5 Nucleated Red Blood Cells % 0.0 Neutrophils # 3.1 Lymphocytes # 0.9 Monocytes # 0.3 Eosinophils # 0.0 Basophils # 0.0 Nucleated Red Blood Cells # 0.0 Sodium Level 137 Potassium Level 4.4 Chloride Level 107 Carbon Dioxide Level 21 Anion Gap 13 Blood Urea Nitrogen 10 Creatinine 0.52 Glucose Level 86 Calcium Level 7.9 L Phosphorus Level 2.0 L Magnesium Level 2.0 Total Bilirubin 0.9 Direct Bilirubin 0.00 Indirect Bilirubin 0.9 Aspartate Amino Transf (AST/SGOT) 30 Alanine Aminotransferase (ALT/SGPT) 22 Alkaline Phosphatase 39 L Total Protein 6.0 #L Albumin 3.2 #L Globulin 2.80 Albumin/Globulin Ratio 1.14 Medications Medications Current Medications Sodium Chloride 1,000 ml @ 100 mls/hr Q10H IV ; Start 06/09/16 at 01:00 Sodium Chloride (NS) 1,000 ml @ 100 mls/hr Q10H IV Last administered on 05:46; Admin Dose 100 MLS/HR; Start 06/09/16 at 00:51 Pantoprazole (Protonix Iv) 40 mg DAILY@06 IV Last administered on 06/10/16 05: 46; Admin Dose 40 MG; Start 06/09/16 at 06:00 Ondansetron HCl (Zofran Inj) 4 mg Q4H PRN IV NAUSEA AND/OR VOMITING; Start 06/09 at 01:00 Morphine Sulfate (morphine) 2 mg Q4H PRN IV PAIN Last administered on 06/09/16 18:33; Admin Dose 2 MG; Start 06/09/16 at 01:00 Acetaminophen/ Hydrocodone Bitart ([place] (5/325)) 1 tab Q4H PRN PO PAIN Last administered on 06/10/16t 10:17; Admin Dose 1 TAB; Start 06/10/16 at 10:00 ARUN MICHEL MD June 10, 2016 15:04
[2016-06-10] MEDS: ENOXAPARIN 40 MG/0.4 ML SYG SC SCH (15:52)
--- NOTE | 2016-06-10 17:18 | RADRPT ---
Echocardiogram Report Patient Name: LINWOOD BRENNER Gender: Female Date: 1945 Study Date: 09-Jun-2016 [employer]: [id number] Ref. Physician: CASTRO KAM Quality: Good Procedures: Transthoracic echocardiogram with complete 2D, M-Mode, and doppler examination. Indications: Syncope. 2D/M Mode Doppler Measurement Value Normal Ranges Measurement Value Normal Ranges LVIDd 2D 3.5 3.5 - 5.6 cm AV Peak Rico 1.9 m/sec LVIDs 2D 1.4 2.1 - 4.1 cm AV Peak PG 13.8 mmHg LVPWd 2D 1.0 0.6 - 1.1 cm LVOT Peak Rico 1.3 m/sec IVSd 2D 1.0 0.6 - 1.1 cm LVOT Peak PG 6.6 mmHg AoR Diam 2D 2.8 2.0 - 3.7 cm MV E Peak Rico 0.8 m/sec EDV 2D 52.6 cm3 MV A Peak Rico 0.9 m/sec ESV 2D 2.6 cm3 MV E/A 0.9 LA Dimen 2D 2.8 2.3 - 4.0 cm MV Decel Time 151 msec MV Decel Red [place] 5 MV E/A 0.9 TR Peak Rico 2.1 m/sec TR Peak PG 18.3 mmHg RVSP 26.0 mmHg Findings Left Ventricle: Normal left ventricular systolic function. Normal left ventricular cavity size. Normal left ventricular wall thickness. Ejection fraction is visually estimated at 65 %. Tissue Doppler/Mitral Doppler indices are consistent with impaired relaxation (Stage I diastolic dysfunction). Right Ventricle: Normal right ventricular size. Normal right ventricular systolic function. Left Atrium: The left atrium is normal in size. Right Atrium: The right atrium is normal in size. Mitral Valve: Normal appearance and function of the mitral valve with trace physiologic regurgitation. Aortic Valve: Normal appearance of the aortic valve. No significant aortic stenosis or insufficiency. Tricuspid Valve: Normal appearance and function of the tricuspid valve with trace physiologic regurgitation. Estimated peak PA systolic pressure 26 mmHg. Pulmonic Valve: Normal pulmonic valve appearance. Pericardium: Normal pericardium with no significant pericardial effusion. Aorta: Normal aortic root. IVC: Normal size and no respiratory collapse consistent with elevated right atrial pressure. Conclusions 1.Normal left ventricular systolic function. Normal left ventricular cavity size. Normal left ventricular wall thickness. Ejection fraction is visually estimated at 65 %. Tissue Doppler/Mitral Doppler indices are consistent with impaired relaxation (Stage I diastolic dysfunction). 2.Normal right ventricular size. Normal right ventricular systolic function. 3.The left atrium is normal in size. 4.The right atrium is normal in size. 5.No significant valvular stenosis or regurgitation seen. 6.Normal pericardium with no significant pericardial effusion. Electronically Signed By: Maximo Rich 10-Jun-2016 17:18:13 -0700 Patient Name: LINWOOD BRENNER Study Date: 09-Jun-2016 [id number]
[2016-06-11] VITALS (10 sets, daily range): BP systolic 104–138; BP diastolic 55–67; PULSE 61–84; RESP 15–18
[2016-06-11] MEDS: SOD CHLORIDE 0.9% 1,000 ML IV SCH ×3 (01:35→22:03)
[2016-06-11] MEDS: PANTOPRAZOLE 40 MG INJ IV SCH (05:49)
[2016-06-11 08:17] LABS: CALCIUM 7.9 mg/dl (8.4-10.2); CREATININE 0.57 mg/dl (0.44-1.00); MAGNESIUM 1.9 mg/dl (1.7-2.5); POTASSIUM 3.8 mmol/L (3.5-5.1)
[2016-06-11] MEDS: ENOXAPARIN 40 MG/0.4 ML SYG SC SCH (08:57)
[2016-06-11] MEDS: HYDROCODONE/APAP (5/325) TAB PO PRN ×3 (10:06→21:59)
--- NOTE | 2016-06-11 10:34 | PN ---
DATE: 06/11/2016 The patient's abdominal pain has completely resolved. She is tolerating p.o. and is having bowel mo vements. Her abdominal examination is benign. IMPRESSION: Small-bowel obstruction, resolved. The patient can be started on a soft diet. As there are no further surgical recommendations, will s ign off and see again p.r.n. your request. Dictated By: TRENTON REYES/JOY Conf#: [id number] DID#: [id number]
--- NOTE | 2016-06-11 14:58 | PN ---
Date/Time of Note Date/Time of Note DATE: 06/11/16 TIME: 14:55 Assessment/Plan VTE Prophylaxis VTE Prophylaxis Intervention: LMWH Lines/Catheters IV Catheter Type (from Nrs): Peripheral IV Urinary Cath still in place: No Assessment/Plan Assessment/Plan 1. Small bowel obstruction, still has abdominal pain with distension, likely partial SBO, ordered SBFT 2. Syncopal episode possibly related to bowel obstruction 3. History of osteoporosis 4. DVT prophylaxis: lovenox Subjective 24 Hr Interval Summary Free Text/Dictation abdominal pain and distension Exam/Review of Systems Vital Signs Vitals Vital Signs Date Time Temp Pulse Resp B/P Pulse Ox O2 Delivery O2 Flow Rate FiO2 06/11/16 12:53 69 06/11/16 12:14 98.1 18 117/55 95 06/10/16 12:39 Room Air Intake and Output 06/10/16 06/10/16 06/11/16 15:00 23:00 07:00 Intake Total 2150 ml 1690 ml Balance 2150 ml 1690 ml Exam Constitutional: alert, oriented, well developed Psych: nl mood/affect, no complaints Head: atraumatic, normocephalic Eyes: EOMI, nl conjunctiva, nl lids ENMT: nl external ears & nose, nl lips & teeth, nl nasal mucosa & septum Neck: non-tender, supple Respiratory: clear to auscultation, normal air movement, No congested cough, No crackles/rales, No diminished breath sounds, No intercostal retraction, No labored breathing, No other, No respirations, No tactile fremitus, No wheezing Cardiovascular: nl pulses, regular rate and rhythm, No S3, No S4, No bruits, No diastolic murmur, No edema, No gallop, No irregular rhythm, No jugular venous distention (JVD), No murmurs/extra sounds, No other, No rub, No systolic murmur Gastrointestinal: distended, tender Musculoskeletal: nl extremities to inspection Extremities: normal pulses, No calf tenderness, No clubbing, No cyanosis, No edema, No other, No palpable cord, No pitting pedal edema, No tenderness 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: 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-XII 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, nl mental status, nl speech, nl strength Skin: nl turgor Lymph: nl lymph nodes Results Result Diagram: 06/10/16 0751 06/11/16 0640 Results 24 hrs Laboratory Tests Test 06/11/16 06:40 Sodium Level 138 Potassium Level 3.8 Chloride Level 109 Carbon Dioxide Level 27 Anion Gap 6 L Blood Urea Nitrogen 6 L Creatinine 0.57 Glucose Level 96 Calcium Level 7.9 L Magnesium Level 1.9 Medications Medications Current Medications Sodium Chloride (NS) 1,000 ml @ 100 mls/hr Q10H IV Last administered on 11:38; Admin Dose 100 MLS/HR; Start 06/09/16 at 00:51 Pantoprazole (Protonix Iv) 40 mg DAILY@06 IV Last administered on 06/11/16 05: 49; Admin Dose 40 MG; Start 06/09/16 at 06:00 Ondansetron HCl (Zofran Inj) 4 mg Q4H PRN IV NAUSEA AND/OR VOMITING; Start 06/09 at 01:00 Morphine Sulfate (morphine) 2 mg Q4H PRN IV PAIN Last administered on 06/09/16 18:33; Admin Dose 2 MG; Start 06/09/16 at 01:00 Acetaminophen/ Hydrocodone Bitart ([place] (5/325)) 1 tab Q4H PRN PO PAIN Last administered on 06/11/16 10:06; Admin Dose 1 TAB; Start 06/10/16 at 10:00 Enoxaparin Sodium (Lovenox) 40 mg DAILY SC Last administered on 06/11/16 08:57 ; Admin Dose 40 MG; Start 06/10/16 at 15:30 ARUN MICHEL MD June 11, 2016 14:58
[2016-06-11] MEDS ORDERED: DIATR MEGLU/DIATRIZOATE SODIUM 120 ML BTL ONE ×3 (15:46)
[2016-06-11] MEDS ORDERED: ONDANSETRON 4 MG INJ ONE (15:57)
[2016-06-12] VITALS (13 sets, daily range): BP systolic 91–128; BP diastolic 51–69; PULSE 62–81; RESP 15–19
[2016-06-12] MEDS: PANTOPRAZOLE 40 MG INJ IV SCH (05:19)
[2016-06-12] MEDS: SOD CHLORIDE 0.9% 1,000 ML IV SCH ×2 (07:50→18:30)
[2016-06-12] MEDS: ENOXAPARIN 40 MG/0.4 ML SYG SC SCH (08:33)
--- NOTE | 2016-06-12 09:30 | PN ---
Date/Time of Note Date/Time of Note DATE: 06/12/16 TIME: 09:29 Assessment/Plan VTE Prophylaxis VTE Prophylaxis Intervention: heparin Lines/Catheters IV [facility]from [facility]): Peripheral IV Urinary Cath still in place: No Assessment/Plan Problems: (1) Osteoporosis Status: Chronic Comment: Noted. No bisphosphonate therapy at this time given her GI tract issues Qualifiers: Osteoporosis type: unspecified Presence of current pathological fracture: without current pathological fracture Qualified Code: M81.0 - Osteoporosis without current pathological fracture, unspecified osteoporosis type (2) SBO (small bowel obstruction) Status: Acute Comment: This appears to be clearing. She is scheduled for a small bowel follow-through and depending upon the results this may be discharged today or more likely tomorrow morning. Subjective 24 Hr Interval Summary Free Text/Dictation Patient had significant nausea yesterday which she reports is better today. She is scheduled for a small bowel follow-through today. Denies abdominal pain Constitutional: no complaints Respiratory: no complaints Gastrointestinal: nausea (Minimal nausea much less), other (No abdominal pain) Genitourinary: no complaints Exam/Review of Systems Vital Signs Vitals Vital Signs Date Time Temp Pulse Resp B/P Pulse Ox O2 Delivery O2 Flow Rate FiO2 06/12/16 08:00 62 06/12/16 07:57 98.4 18 113/65 97 06/10/16 12:39 Room Air Intake and Output 06/11/16 06/11/16 06/12/16 15:00 23:00 07:00 Intake Total 1950 ml 350 ml Balance 1950 ml 350 ml Exam Constitutional: alert, oriented Neck: non-tender, supple Respiratory: clear to auscultation, normal air movement Cardiovascular: nl pulses, regular rate and rhythm Gastrointestinal: nl liver, spleen, other (Vague non-rebound abdominal pain), soft Results Result Diagram: 06/10/16 0751 06/11/16 0640 Medications Medications Current Medications Sodium Chloride (NS) 1,000 ml @ 100 mls/hr Q10H IV Last administered on 07:50; Admin Dose 100 MLS/HR; Start 06/09/16 at 00:51 Pantoprazole (Protonix Iv) 40 mg DAILY@06 IV Last administered on 06/12/16 05: 19; Admin Dose 40 MG; Start 06/09/16 at 06:00 Ondansetron HCl (Zofran Inj) 4 mg Q4H PRN IV NAUSEA AND/OR VOMITING Last administered on 06/11/16 21:59; Admin Dose 4 MG; Start 06/09/16 at 01:00 Morphine Sulfate (morphine) 2 mg Q4H PRN IV PAIN Last administered on 06/09/16 18:33; Admin Dose 2 MG; Start 06/09/16 at 01:00 Acetaminophen/ Hydrocodone Bitart ([place] (5/325)) 1 tab Q4H PRN PO PAIN Last administered on 06/11/16 21:59; Admin Dose 1 TAB; Start 06/10/16 at 10:00 Enoxaparin Sodium (Lovenox) 40 mg DAILY SC Last administered on 06/12/16 08:33 ; Admin Dose 40 MG; Start 06/10/16 at 15:30 JULIANA CANCHOLA MD June 12, 2016 09:30
[2016-06-12] MEDS: HYDROCODONE/APAP (5/325) TAB PO PRN (09:55)
[2016-06-12] MEDS ORDERED: DIATR MEGLU/DIATRIZOATE SODIUM 120 ML BTL ONE ×2 (13:24)
[2016-06-13] VITALS (11 sets, daily range): BP systolic 105–119; BP diastolic 55–72; PULSE 66–79; RESP 18–19
[2016-06-13] MEDS: PANTOPRAZOLE 40 MG INJ IV SCH (05:59)
[2016-06-13] MEDS: SOD CHLORIDE 0.9% 1,000 ML IV SCH ×2 (05:59→10:59)
[2016-06-13] MEDS: ENOXAPARIN 40 MG/0.4 ML SYG SC SCH (08:37)
[2016-06-13] MEDS: HYDROCODONE/APAP (5/325) TAB PO PRN (13:11)
--- NOTE | 2016-06-13 14:28 | PN ---
Date/Time of Note Date/Time of Note DATE: 06/13/16 TIME: 14:24 Assessment/Plan VTE Prophylaxis VTE Prophylaxis Intervention: heparin Lines/Catheters IV Catheter Type (from Nrsg): Peripheral IV Urinary Cath still in place: No Assessment/Plan Problems: (1) History of small bowel obstruction Status: Chronic Comment: noted (2) SBO (small bowel obstruction) Status: Acute Comment: Patient is not doing as well due to pain. SBFT no data available called Dr. Galvez to get data small bowel is somewhat dilated partial sbo Subjective 24 Hr Interval Summary Constitutional: no complaints Respiratory: no complaints Cardiovascular: no complaints Gastrointestinal: no complaints Exam/Review of Systems Vital Signs Vitals Vital Signs Date Time Temp Pulse Resp B/P Pulse Ox O2 Delivery O2 Flow Rate FiO2 06/13/16 12:36 79 06/13/16 11:55 98.0 18 119/72 98 06/10/16 12:39 Room Air Intake and Output 06/12/16 06/12/16 06/13/16 15:00 23:00 07:00 Intake Total 1800 ml 1700 ml Balance 1800 ml 1700 ml Exam Constitutional: alert, oriented Respiratory: clear to auscultation, normal air movement Cardiovascular: nl pulses, regular rate and rhythm Gastrointestinal: bowel sounds, nl liver, spleen, non-tender, soft Results Result Diagram: 06/10/16 0751 06/11/16 0640 Medications Medications Current Medications Sodium Chloride (NS) 1,000 ml @ 100 mls/hr Q10H IV Last administered on 10:59; Admin Dose 100 MLS/HR; Start 06/09/16 at 00:51 Pantoprazole (Protonix Iv) 40 mg DAILY@06 IV Last administered on 06/13/16 05: 59; Admin Dose 40 MG; Start 06/09/16 at 06:00 Ondansetron HCl (Zofran Inj) 4 mg Q4H PRN IV NAUSEA AND/OR VOMITING Last administered on 06/11/16 21:59; Admin Dose 4 MG; Start 06/09/16 at 01:00 Morphine Sulfate (morphine) 2 mg Q4H PRN IV PAIN Last administered on 06/09/16 18:33; Admin Dose 2 MG; Start 06/09/16 at 01:00 Acetaminophen/ Hydrocodone Bitart ([place] (5/325)) 1 tab Q4H PRN PO PAIN Last administered on 06/13/16 13:11; Admin Dose 1 TAB; Start 06/10/16 at 10:00 Enoxaparin Sodium (Lovenox) 40 mg DAILY SC Last administered on 06/13/16 08:37 ; Admin Dose 40 MG; Start 06/10/16 at 15:30 JULIANA CANCHOLA MD June 13, 2016 14:28
--- NOTE | 2016-06-13 15:44 | RADRPT ---
PROCEDURE: Small bowel follow-through. CLINICAL INDICATION: Abdomen pain. TECHNIQUE: Water-soluble contrast was administered orally and several spot and overhead radiograph s of the abdomen were obtained. COMPARISON: Small bowel follow-through dated 01/19/2016. CT scan of the abdomen and pelvis dated 06/08/2016. FINDINGS: On the preliminary radiograph, contrast is present in the transverse colon and right side of the col on from the prior CT scan. Multiple surgical clips are present in the abdomen and pelvis. There is dilated small bowel in the left upper quadrant of the abdomen measuring up to 6.3 cm in diameter. There is no small bowel displacement or mass. The small bowel folds are normal. There is no evidence of gastric outlet obstruction. Contrast enters the small bowel in the dilated left upper quadrant. 2-hour delayed images demonstrate contrast in the distal small bowel and colon . A followup image approximately 24 hours later demonstrates contrast throughout the colon. All of the contrast has left the small bowel. The small bowel in the left upper quadrant is improved katharine uring 4 cm in diameter on the delayed image. IMPRESSION: 1. Prior abdominal and pelvic surgery. 2. Dilated small bowel in the left upper quadrant which improves on delayed image. 3. No contrast remaining in the small bowel on the 24-hour delayed image. RPTAT: QQ .Robby Galvez MD, MD Date Time Electronically viewed and signed by .Robby Galvez MD, MD on 06/13/2016 15:44 .R/
[2016-06-14] VITALS (12 sets, daily range): BP systolic 107–145; BP diastolic 51–84; PULSE 61–74; RESP 16–70
[2016-06-14] MEDS: SOD CHLORIDE 0.9% 1,000 ML IV SCH ×4 (05:30→22:34)
[2016-06-14] MEDS: PANTOPRAZOLE 40 MG INJ IV SCH (05:30)
[2016-06-14] MEDS: ENOXAPARIN 40 MG/0.4 ML SYG SC SCH (07:45)
[2016-06-14] MEDS: HYDROCODONE/APAP (5/325) TAB PO PRN ×2 (10:51→20:01)
[2016-06-14] MEDS ORDERED: IBUPROFEN 800 MG TAB PO PRN (15:00)
[2016-06-14] MEDS ORDERED: ENOXAPARIN 30 MG/0.3 ML SYG SC SCH (15:00)
--- NOTE | 2016-06-14 15:05 | PN ---
Date/Time of Note Date/Time of Note DATE: 06/14/16 TIME: 15:02 Assessment/Plan VTE Prophylaxis VTE Prophylaxis Intervention: LMWH Lines/Catheters IV Catheter Type (from Nrsg): Peripheral IV Urinary Cath still in place: No Assessment/Plan Chief Complaint/Hosp Course s- less abd pain. no n/v/fever. tolerating liquids. drinks 8 glasses fluids/ day. ho djd lumbar dz ~8yrs. o- vss pe no pallor reg ctab bs+ nt nd; no r/r/g no edema back- no point tenderness/ warmth A/P 1) SBO; stable; advance diet. 2) Adhesions. 3) Syncope. vasovagal due to pain? 4) L4 Fracture; Mri/ corset 5) Ho Ovarian Ca; ct w contrast. 6) Djd/ Op 7) Anemia Problems: Exam/Review of Systems Vital Signs Vitals Vital Signs Date Time Temp Pulse Resp B/P Pulse Ox O2 Delivery O2 Flow Rate FiO2 06/14/16 12:22 66 06/14/16 12:10 99.0 18 121/67 99 06/10/16 12:39 Room Air Intake and Output 06/13/16 06/13/16 06/14/16 15:00 23:00 07:00 Intake Total 750 ml 1600 ml Balance 750 ml 1600 ml Results Result Diagram: 06/10/16 0751 06/11/16 0640 Medications Medications Current Medications Sodium Chloride (NS) 1,000 ml @ 75 mls/hr [id number] IV Last administered on 05:30; Admin Dose 100 MLS/HR; Start 06/09/16 at 00:51 Ondansetron HCl (Zofran Inj) 4 mg Q4H PRN IV NAUSEA AND/OR VOMITING Last administered on 06/11/16 21:59; Admin Dose 4 MG; Start 06/09/16 at 01:00 Morphine Sulfate (morphine) 2 mg Q4H PRN IV PAIN Last administered on 06/09/16 18:33; Admin Dose 2 MG; Start 06/09/16 at 01:00 Acetaminophen/ Hydrocodone Bitart ([place] (5/325)) 1 tab Q4H PRN PO PAIN Last administered on 06/14/16 10:51; Admin Dose 1 TAB; Start 06/10/16 at 10:00 Enoxaparin Sodium (Lovenox) 40 mg DAILY SC Last administered on 06/14/16t 07:45 ; Admin Dose 40 MG; Start 06/10/16 at 15:30 Famotidine (Pepcid Iv) 20 mg DAILY IV ; Start 06/15/16 at 09:00 Enoxaparin Sodium (Lovenox) 30 mg DAILY SC ; Start 06/14/16 at 15:00 Ibuprofen (Motrin) 800 mg Q6H PRN PO MODERATE PAIN LEVEL 4-6; Start 06/14/16 at 15:00 Polyethylene Glycol (Miralax) 17 gm BID PO ; Start 06/14/16 at 15:00 SALO SIMMONS MD June 14, 2016 15:05
[2016-06-14] MEDS ORDERED: BARIUM SULF 2% 450 ML BTL (BERRY SMOOTHIE) PO ONE (15:30)
[2016-06-14] MEDS: POLYETHYLENE GLYCOL 17 GM PACKET PO SCH ×2 (15:55→19:56)
[2016-06-14] MEDS: DOCUSATE SODIUM 100 MG CAP PO SCH (19:56)
--- NOTE | 2016-06-15 03:23 | PN ---
DATE: 06/14/2016 FOLLOWUP EVALUATION: The patient states that she is markedly improved, has no abdominal pain and is tolerating p.o. with normal bowel function. IMPRESSION: No further surgical recommendations. Discharge when medically cleared. Dictated By: TRENTON REYSE/JOY Conf#: [id number] DID#: [id number]
[2016-06-15 06:08] LABS: ADD SCAN DIFF NO
[2016-06-15 06:12] LABS: BASOPHILS % 0.3 % (0.0-2.0); HEMATOCRIT 31.2 % (37.0-47.0); HEMOGLOBIN 10.4 g/dl (12.0-16.0); LYMPHOCYTES # 1.3 10^3/ul (0.8-2.9); LYMPHOCYTES % 33.7 % (15.0-51.0); MEAN CORPUSCULAR HEMOGLOBIN 31.4 pg (29.0-33.0); MEAN CORPUSCULAR HGB CONC 33.3 g/dl (32.0-37.0); MEAN CORPUSCULAR VOLUME 94.3 fl (82.0-101.0); MEAN PLATELET VOLUME 9.6 fl (7.4-10.4); MONOCYTE # 0.3 10^3/ul (0.3-0.9); MONOCYTES % 7.8 % (0.0-11.0); NEUTROPHIL # 2.2 10^3/ul (1.6-7.5); NEUTROPHILS % 56.9 % (39.0-77.0); PLATELET COUNT 259 10^3/UL (140-415); RED BLOOD COUNT 3.31 10^6/ul (4.20-5.40); RED CELL DISTRIBUTION WIDTH 13.9 % (11.5-14.5); WHITE BLOOD COUNT 3.9 10^3/ul (4.8-10.8)
[2016-06-15 07:18] VITALS: BP 124/71; RESP 20
[2016-06-15 07:33] LABS: ALBUMIN 3.8 g/dl (3.3-4.9); ALBUMIN/GLOBULIN RATIO 1.22; BILIRUBIN,INDIRECT 0.4 mg/dl (0-1.1); BILIRUBIN,TOTAL 0.4 mg/dl (0.2-1.3); CREATININE 0.56 mg/dl (0.44-1.00); MAGNESIUM 1.6 mg/dl (1.7-2.5); PHOSPHORUS 3.6 mg/dl (2.5-4.9); POTASSIUM 3.5 mmol/L (3.5-5.1); THYROID STIMULATING HORMONE 4.34 MIU/L (0.465-4.680); TOTAL PROTEIN 6.9 g/dl (6.1-8.1)
[2016-06-15] MEDS ORDERED: FAMOTIDINE 20 MG INJ IV SCH (09:00)
--- NOTE | 2016-06-15 09:55 | RADRPT ---
PROCEDURE: MRI lumbar spine without and with contrast CLINICAL INDICATION: L4 fracture, history of cancer TECHNIQUE: Multiplanar MRI of the lumbar spine without and with contrast was performed on a 3.0 T [facility] utilizing the following sequences: T1-weighted, T2-weighted, postcontrast T1-weighted. 10 cc Magnevist intravenous contrast was administered. COMPARISON: CT abdomen pelvis 06/08/2016, 06/02/2012 FINDINGS: There is preservation of the lordosis of the lumbar spine. Alignment is intact. There is a moderat e chronic L5 compression deformity, with mild deformity of the superior aspect of the posterior sweta ex; no associated osseous lesion is seen and this is stable over time compared to the CTs. No suspi cious lesions are identified throughout the lumbar spine. Noted are fatty marrow signal changes in the L5 and the imaged bony pelvis compatible with postradiation changes. Anterior spondylosis is se en at multiple levels. There are type 1 modic changes at L1-2. There is multilevel decreased disk intranuclear T2-weighted signal intensity with disk space narrowing, mild at L1-2 and L3-4. The tip of the conus medullaris is visible at the L1 level and appears unremarkable. No abnormal medullary or leptomeningeal enhancement is identified. Noted is irregularity with decreased signal intensity at the right iliac bone, next to the sacroilia c joint without enhancement. This area appears somewhat more sclerotic compared to the prior CT fro 2012. The etiology is unclear, possibly post-traumatic sequela. Also noted is a smaller focal ar ea of mixed signal intensity in the upper left sacral ala measuring up to about 2 cm with associated enhancement, and suggestion of coarsened trabecula which may reflect a hemangioma; this area appear s nonaggressive and stable over time on the CTs. T12-L1: No disc bulge or herniation is identified. There is no central canal stenosis or foraminal narrowing. L1-L2: There is a 2 mm left central disk protrusion. No disc bulge or herniation is identified. T here is no central canal stenosis or foraminal narrowing. L2-L3: No disc bulge or herniation is identified. There is no central canal stenosis or foraminal narrowing. L3-L4: There is minimal posterior disk bulging. There is mild facet arthropathy. There is no cent ral canal stenosis or foraminal narrowing. L4-L5: There is a broad posterior disk/osteophyte along with mild chronic deformity of the superior posterior L5 cortex, slightly more pronounced centrally. There is facet arthropathy with ligamentu m flavum hypertrophy. There is mild central canal stenosis. There is mild to moderate bilateral fo raminal narrowing. L5-S1: There is minimal posterior disk bulging. There is mild facet arthropathy with ligamentum fl avum hypertrophy. There is no central canal stenosis. There is mild to moderate bilateral foramina l narrowing. IMPRESSION: 1. Moderate chronic L5 compression deformity, without findings suspicious for metastatic disease to the lumbar spine identified. 2. Postradiation changes at L5 and the bony pelvis. Area of decreased signal intensity in the righ t iliac bone without enhancement noted, possibly post-traumatic sequela. Also focal mixed signal in tensity lesion with enhancement in the left sacrum, which may be a hemangioma. 3. Lumbar spondylosis. 4. Mild central canal stenosis at L4-5. 5. Small disk protrusion at L1-2 without central stenosis. 6. Mild to moderate bilateral foraminal narrowing at L4-5 and L5-S1. RPTAT: VV .Андрей Fernandes MD, Date Time Electronically viewed and signed by .Андрей Fernandes MD, on 06/15/2016 09:54 .O/
[2016-06-15] MEDS: ENOXAPARIN 40 MG/0.4 ML SYG SC SCH (10:21)
[2016-06-15] MEDS ORDERED: IOHEXOL 300MG/ML 150 ML BTL ONE (12:46)
[2016-06-15] MEDS ORDERED: SOD CHLORIDE 0.9% 100 ML ONE (12:46)
[2016-06-15] MEDS: DOCUSATE SODIUM 100 MG CAP PO SCH (14:08)
[2016-06-15] MEDS: POLYETHYLENE GLYCOL 17 GM PACKET PO SCH (14:08)
[2016-06-15] MEDS: HYDROCODONE/APAP (5/325) TAB PO PRN (14:09)
--- NOTE | 2016-06-15 16:09 | RADRPT ---
PROCEDURE: CT Abdomen and Pelvis with contrast. CLINICAL INDICATION: Abdominal pain and distension. Evaluate for small bowel obstruction. Histor y of ovarian cancer. TECHNIQUE: CT scan of the abdomen and pelvis with contrast was performed on a multi-detector high- resolution CT scanner. The patient was scanned following the uncomplicated intravenous administrati on of 100 cc of Omnipaque 300. Coronal and sagittal reformatted images were obtained from the axial source images. Images were reviewed on a high-resolution PACS workstation. The total exam CTDI equa ls 8.61 mGy and the total exam DLP equals 473.77 mGy-cm. One or more of the following dose reduction techniques were used: Automated exposure control. Adjustment of the mA and/or kV according to patient size. Use of iterative reconstruction technique. COMPARISON: CT abdomen and pelvis 06/08/2016 FINDINGS: CT abdomen: The lung bases are remarkable for subsegmental atelectasis in the left lung base with linear pleurop arenchymal scarring. The heart size is normal, without pericardial thickening or effusion. The elda er is normal in size and density without focal mass or intrahepatic biliary dilatation. The spleen is normal in size and homogeneous in density. The stomach is partially collapsed, but is grossly un remarkable. The pancreas as visualized is normal. The gallbladder . There is no evidence for bili anton dilatation. The adrenal glands are symmetric and normal. The kidneys are symmetrically unremar kable as well. No renal calculus or obstructive uropathy or mass lesion is seen. The aorta is of normal caliber. Aortic vascular calcifications are present. There is no retroperit cano lymphadenopathy. The chance hepatis region is clear. The bowel and mesentery, as visualized, are equally unremarkable. There is a fat-containing infraumbilical ventral abdominal hernia. CT pelvis: The small bowel loops situated within the pelvis are unremarkable. The patient is status post hyste rectomy. The pelvic sidewalls and inguinal regions are clear. The sigmoid colon and rectum are javi rkable for sigmoid diverticulosis. No mass, lymphadenopathy, or free fluid is seen. No acute infla mmation is seen. There is moderately distended urinary bladder without focal abnormal wall thickenin g. The surrounding osseous structures are remarkable for stable moderate chronic compression fractur e of L5. Old right pelvic fracture is again noted. No osteolytic or osteoblastic lesion is detecte d. IMPRESSION: 1. No mass, lymphadenopathy, or focal acute inflammatory process is identified. 2. Normal caliber loops of small bowel with no small bowel obstruction. 3. Fat containing infraumbilical ventral abdominal hernia. 4. Status post hysterectomy. No pelvic mass. No free fluid in the pelvis. 5. Scattered aortoiliac atherosclerosis. 6. Unchanged moderate compression fracture of L5. RPTAT: BB .Doug Cortes MD, MD Date Time Electronically viewed and signed by .Doug Cortes MD, on 06/15/2016 16:09 .O/
--- NOTE | 2016-06-15 17:21 | PDOCDIS ---
Discharge Instructions DIAGNOSIS Discharge Diagnosis: partial bowel obstruction CONDITION Patient Condition: Good HOME CARE INSTRUCTIONS: Special Diet: MECH SOFT/regular ACTIVITY: Activity Restrictions: Slowly Increase Activity Avoid heavy lifting FOLLOW UP/APPOINTMENTS Appointments pcp 1wSALO Love MD June 15, 2016 17:21
[2016-06-15] MEDS ORDERED: IBUP800T25 PO (17:24)
[2016-06-15] MEDS ORDERED: POTASSIUM CHLORIDE 20 MEQ POWDER FOR ORAL SOLN PO ONE (17:30)
[2016-06-15] MEDS ORDERED: MAGNESIUM OXIDE 400 MG TAB PO ONE (17:30)
--- NOTE | 2016-06-15 18:29 | DS ---
DATE OF ADMISSION: 06/08/2016 DATE OF DISCHARGE: 06/15/2016 PRIMARY CARE PHYSICIAN: Unknown. SHOP WELDER: Trenton Triana MD DIAGNOSIS ON ADMISSION: Partial small-bowel obstruction. DIAGNOSES ON DISCHARGE: 1. Partial small-bowel obstruction. 2. Adhesions. 3. Syncope, probably vasovagal. 4. L4 fracture. HOSPITAL COURSE: This is a 70-year-old female admitted with abdominal pain. No known aggravating o r relieving factors. She drinks plenty of fluids a day. She tries to avoid constipation. She is n ot passing any blood. She has had similar discomfort in the past. The patient was treated conserva tively. NG removed. The patient was seen by general surgery. She is presently stable, tolerating diet, pain is controlled and she is stable and fit for discharge. Etiology is probably adhesions wh ich have resolved with conservative measures. I did a CAT scan with contrast which did not show any tumor or fluid collections, etc. Recommend she avoid dehydration and constipation, etc. Stable an d fit for discharge. History of ovarian cancer. Present CAT scan with contrast did not show any disease. Syncope, probably vasovagal due to pain. Nonfocal. No arrhythmias. No repeat events. EKG okay. L4 fracture. This is not acute. Due to pain, I will prescribe some Motrin. Obtain a lumbar brace or corset for discomfort. Anemia, stable. DISCHARGE PLAN: Home. Follow up with primary in 1 week, and Dr. Triana as needed. DIET: Regular. ACTIVITY: No heavy lifting. DURABLE MEDICAL EQUIPMENT: Lumbar corset. CODE STATUS: FULL. CONDITION: Stable, good. BARRIERS TO DISCHARGE: None. PENDING TESTS: None. FUNCTIONAL STATUS: The patient is awake, alert, agrees with plan of care. REASON FOR ADMISSION: Abdominal pain. ALLERGIES: NO KNOWN DRUG ALLERGIES. CONTINUED MEDICATIONS: 1. Fosamax 70 once a week. 2. Colace 100 b.i.d. NEW MEDICATION: Motrin 800 mg every 6 hours as needed for pain, 30 tablets, no refills. LABORATORY DATA: White cell count of 3.9, hemoglobin and hematocrit of 10 and 31, platelets of 259. INR 0.9. Trace ketones seen. Sodium 138, potassium 3.5, chloride 105, bicarbonate 28, BUN of 10, creatinine 0.5, glucose of 95, calcium 9. Phosphorus of 3.6, magnesium 1.6, bilirubin 0.4, AST and ALT of 52 and 61, alkaline phosphatase of 54. Protein of 6.9, albumin of 3.8. TSH of 4.3. Lipase of 60. Blood and urine cultures unremarkable. IMAGING: CAT scan with contrast demonstrates normal bowel at this time. There are fat-containing i nfraumbilical, ventral, abdominal hernias. Hysterectomy status. Scattered aortoiliac atheroscleros is. Moderate compression fracture of L5, which on MRI shows moderate chronic compression deformity , postradiation changes of L5 and pelvis. Mixed focal signal density enhancement in the left sacrum which may be a hemangioma. Posttraumatic sequelae probably of an area of decreased signal intensit y in the right iliac bone without enhancement. Lumbar spondylosis. Mild central canal stenosis L4 to L5, small disk protrusion L1 to L2, mild to moderate bilateral foraminal narrowing at L4 to L5 an d L5 to S1. Carotid ultrasound no acute process. CAT scan of brain: No acute process. 2D echo no acute proces s, EF of 60, concern for impaired relaxation diastolic dysfunction. Dictated By: SALO SIMMONS MD AC/NTS Conf#: [id number] DID#: [id number] CC: TRENTON TRIANA MD;*EndCC*
== END 2016-06-15 19:45 | disposition home or self-care (01) | DRG 389 ==
LOC: E/R 13:02 → MS4 21:56 → MS2 06-14 20:50
PROVIDERS: ADMIT Family Medicine; ATTEND Family Medicine
DX: K56.5 Intestinal adhesions [bands] with obstruction (postinfection) (principal); E87.1 Hypo-osmolality and hyponatremia; S32.501A Unspecified fracture of right pubis, initial encounter for closed fracture; M48.56XA Collapsed vertebra, not elsewhere classified, lumbar region, initial encounter for fracture; R55 Syncope and collapse; N32.89 Other specified disorders of bladder; M81.0 Age-related osteoporosis without current pathological fracture; Z85.41 Personal history of malignant neoplasm of cervix uteri; Z90.710 Acquired absence of both cervix and uterus; Z92.3 Personal history of irradiation; I70.90 Unspecified atherosclerosis; X58.XXXA Exposure to other specified factors, initial encounter; K46.9 Unspecified abdominal hernia without obstruction or gangrene; D64.9 Anemia, unspecified; I70.0 Atherosclerosis of aorta; I70.209 Unspecified atherosclerosis of native arteries of extremities, unspecified extremity; M47.9 Spondylosis, unspecified
CPT/HCPCS: 70450; 72158; 74000; 74176; 74177; 74250; 80048; 80053; 81001; 81003; 82150; 82306; 83690; 83735; 84100; 84443; 84484; 85025; 85610; 85730; 87040; 87086; 93005; 93306; 93880; 96361; 96374; 96375; 96376; C9113; J1650; J2270; J2405; J7030; Q9967

== ENCOUNTER 2016-11-25 23:25 | Inpatient (IN) | payer OTHER ==
[~2016-11-25] VITALS: Ht 154.9 cm; Wt 62.6 kg
[~2016-11-25 23:25] MED LIST changes: +IBUP800T25 PO; -POLY17PO6 PO
--- NOTE | 2016-11-26 00:12 | ERD ---
ER Documentation Chief Complaint Chief Complaint abd pain with n/v since this afternoon hx of sbo HPI The patient is a 71-year-old female, presenting to the ER because of abdominal pain, nausea, vomiting that began about 12 PM today, she has similar symptoms previously due to partial small bowel obstruction, she vomited initially food and mucus, last bowel movement was 2 days ago, last meal was 10 days. She denies fever, chills, neck pain, chest pain. dyspnea. She does not smoke nor drink Past medical history: History of partial small bowel obstruction, osteoporosis, L4 fracture Past surgical history: Hysterectomy, 2 ROS All systems reviewed and are negative except as per history of present illness. Medications Home Meds Active Scripts Docusate Sodium* (Colace*) 100 Mg Capsule, 100 MG PO BID for 30 Days, CAP Prov:KEVEN GIFFORD. 01/23/16 Alendronate Sodium* (Fosamax*) 70 Mg Tablet, 70 MG PO Th@0730 for 30 Days, TAB Prov:KEVEN GIFFORD. 01/23/16 Reported Medications Omeprazole* (Omeprazole*) 40 Mg Capsule.dr, 40 MG PO DAILY, #30 CAP 11/26/16 Discontinued Scripts Ibuprofen* (Motrin*) 800 Mg Tab, 7 MG PO Q6H Y for PAIN for 7 Days, #30 TAB Prov:SALO SIMMONS MD 06/15/16 Allergies Allergies: Coded Allergies: No Known Allergies (Unverified Allergy, Mild, 11/26/16) PMhx/Soc History of Surgery: Yes (total hysterectomy, bladder, appy, "multiple abdominal ") Anesthesia Reaction: No Hx 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 Disorder: No Hx Respiratory Disorders: No Hx Cardiac Disorders: No Hx Psychiatric Problems: No Hx Miscellaneous Medical Probl: Yes Hx Alcohol Use: No Hx Substance Use: No Hx Tobacco Use: No Physical Exam Vitals Vital Signs Date Time Temp Pulse Resp B/P Pulse Ox O2 Delivery O2 Flow Rate FiO2 11/26/16 03:10 85 18 114/76 95 Room Air 11/25/16 23:27 99.5 84 18 124/79 97 Physical Exam Const: No acute distress. Head: Atraumatic. Eyes: Normal Conjunctiva. ENT: Normal External Ears, Nose and Mouth. Neck: Full range of motion. No meningismus. Resp: Clear to auscultation bilaterally. Cardio: Regular rate and rhythm. Abd: Soft, non distended, normal bowel sounds, Moderate and diffuse abdominal tenderness, more tender on the left-sided of the abdomen than the right sided of the abdomen, hypoactive bowel sounds Skin: No petechiae or rashes. Back: No midline or flank tenderness. Ext: No cyanosis, or edema. Neur: Awake and alert. No focal deficit Psych: Normal Mood and Affect. Result Diagram: 11/26/16 0040 11/26/16 004 Results 24 hrs Laboratory Tests Test 11/26/16 00:40 11/26/16 02:18 White Blood Count 6.110^3/ul Red Blood Count 3.7910^6/ul Hemoglobin 11.7g/dl Hematocrit 35.3% Mean Corpuscular Volume 93.1fl Mean Corpuscular Hemoglobin 30.9pg Mean Corpuscular Hemoglobin Concent 33.1g/dl Red Cell Distribution Width 13.9% Platelet Count 59892^3/UL Mean Platelet Volume 10.2fl Neutrophils % 87.5% Lymphocytes % 8.4% Monocytes % 3.6% Eosinophils % 0.0% Basophils % 0.2% Nucleated Red Blood Cells % 0.0/100WBC Neutrophils # 5.310^3/ul Lymphocytes # 0.510^3/ul Monocytes # 0.210^3/ul Eosinophils # 0.010^3/ul Basophils # 0.010^3/ul Nucleated Red Blood Cells # 0.010^3/ul Prothrombin Time 11.9Sec Prothrombin Time Ratio 0.9 INR International Normalized Ratio 0.88 Activated Partial Thromboplast Time 24.5Sec Sodium Level 136mmol/L Potassium Level 4.4mmol/L Chloride Level 99mmol/L Carbon Dioxide Level 28mmol/L Anion Gap 13 Blood Urea Nitrogen 14mg/dl Creatinine 0.62mg/dl Glucose Level 130mg/dl Calcium Level 10.0mg/dl Total Bilirubin 0.8mg/dl Direct Bilirubin 0.00mg/dl Indirect Bilirubin 0.8mg/dl Aspartate Amino Transf (AST/SGOT) 33IU/L Alanine Aminotransferase (ALT/SGPT) 25IU/L Alkaline Phosphatase 54IU/L Troponin I < 0.012ng/ml Total Protein 8.3g/dl Albumin 4.3g/dl Globulin 4.00g/dl Albumin/Globulin Ratio 1.07 Lipase 64U/L Bedside Urine pH (LAB) 7.5 Bedside Urine Protein (LAB) Negative Bedside Urine Glucose (UA) Negative Bedside Urine Ketones (LAB) 2+ Bedside Urine Blood Negative Bedside Urine Nitrite (LAB) Negative Bedside Urine Leukocyte Esterase (L Negative Current Medications Medications (Trade) Dose Ordered Sig/Alma Route PRN Reason Start Time Stop Time Status Last Admin Dose Admin Morphine Sulfate (morphine) 2 mg ONCE ONCE IV 11/26/16 01:30 11/26/16 01:31 DC 11/26/16 01:32 Ondansetron HCl 4 mg 4 mg ONCE STAT IV 11/26/16 01:09 11/26/16 01:11 DC 11/26/16 01:32 Piperacillin Sod/ Tazobactam Sod (Zosyn 3.375gm/ 100 ml (Pmx)) 100 ml @ 200 mls/hr ONCE ONCE IVPB 11/26/16 02:00 11/26/16 02:29 DC 11/26/16 02:13 Procedures/MDM [place] [address] Radiology Main Line: [phone] DIAGNOSTIC IMAGING REPORT Patient: LINWOOD BRENNER : 1945 Age: 71 Sex: F MR #: [id number] DOS: 11/26/16 0015 Ordering MD: KAIN COFFEY MD Location: E/R Room/Bed: PROCEDURE: XR Chest. CLINICAL INDICATION: Abdominal pain. TECHNIQUE: Single frontal view. COMPARISON: 01/18/2016. FINDINGS: There is a small calcified granuloma in the left upper lobe, unchanged. The lungs are otherwise clear. The heart size is normal. There is calcification in the aorta consistent with atherosclerosis. There is no pleural effusion. There is no pneumothorax. IMPRESSION: 1. Atherosclerosis. 2. Small calcified granuloma in the left upper lobe, unchanged. 3. Otherwise normal chest x-ray. RPTAT: QQ .Robby Galvez MD, MD Date Time Electronically viewed and signed by .Robby Galvez MD, MD on 11/26/2016 00:31 .R/ CC: KAIN COFFEY MD [place] [address] Radiology Main Line: [phone] DIAGNOSTIC IMAGING REPORT Patient: LINWOOD BRENNER : 1945 Age: 71 Sex: F MR #: [id number] DOS: 11/26/16 0015 Ordering MD: KAIN COFFEY MD Location: E/R Room/Bed: PROCEDURE: CT abdomen and pelvis without intravenous contrast. CLINICAL INDICATION: Pain. TECHNIQUE: CT of the abdomen/pelvis was performed utilizing axial images with reconstructions in sagittal and coronal planes. The administered radiation dose is CTDI 6.7 mGy, DLP 369 mGy-cm. One or more of the following dose reduction techniques were used: automated exposure control, adjustment of the mA and/or kV according to patient size and/or use of iterative reconstruction technique. COMPARISON: 06/15/2016 FINDINGS: Visualized Chest: The visualized lung bases are clear. Abdomen: The liver, spleen, pancreas, gallbladder,and adrenal glands are unremarkable. The kidneys are without hydronephrosis. No definite urinary calculi are seen. Numerous markedly dilated loops of small bowel are seen within the left abdomen and lower abdomen. The more distal small bowel is collapsed. A transition point is seen within the midline pelvis in the vicinity of axial image 133 of series 3. The bowel has a tethered appearance in the region. This is adjacent to some sutures and multiple surgical clips in the pelvis. The appendix is not seen, likely resected. There is no intra-abdominal free air or pneumatosis. There is a small, omentum containing ventral abdominal hernia. There is no evidence of intra-abdominal adenopathy or free fluid. Pelvis: Prior hysterectomy is noted. The urinary bladder is unremarkable. There is no pelvic adenopathy of free fluid. Osseous structures: Unremarkable. IMPRESSION: Small bowel obstruction secondary to adhesions and / or an internal hernia within the lower abdomen and pelvis. RPTAT: HIKT .Santiago Becki, MD, Date Time Electronically viewed and signed by .Santiago Connell MD, on 11/26/2016 01:53 .T/ CC: KAIN COFFEY MD MEDICAL MAKING DECISION: The patient is a 71-year-old female, presenting with acute small bowel obstruction. She was treated with Zosyn IV, nasogastric tube , morphine 2 mg IV for pain and Zofran 4 mg IV for nausea with good response The differential diagnoses considered include but are not limited to cholelithiasis, cholecystitis, cystitis, pancreatitis, hepatitis, gastritis, peptic ulcer disease, gastric ulcer, appendicitis, diverticulitis, cholangitis, choledocholithiasis. Consultation: I discussed the patient with the on-call general surgeon Dr. Figueroa at 3:10 AM, who was made aware of the lab, the treatment, the patient condition. He accepted the consult Departure Diagnosis: Primary Impression: Small bowel obstruction Additional Impression: Anemia Condition: Stable Comments I discussed the findings with the patient. I discussed the patient with the on- call hospitalist Dr. Garvin at 2:25 AM who was made aware of the lab, the treatment, the patient condition. The patient is admitted to [facility] AD[facility] MD Nov 26, 2016 00:12
--- NOTE | 2016-11-26 00:31 | RADRPT ---
PROCEDURE: XR Chest. CLINICAL INDICATION: Abdominal pain. TECHNIQUE: Single frontal view. COMPARISON: 01/18/2016. FINDINGS: There is a small calcified granuloma in the left upper lobe, unchanged. The lungs are otherwise ernesto r. The heart size is normal. There is calcification in the aorta consistent with atherosclerosis. There is no pleural effusion. There is no pneumothorax. IMPRESSION: 1. Atherosclerosis. 2. Small calcified granuloma in the left upper lobe, unchanged. 3. Otherwise normal chest x-ray. RPTAT: QQ .Robby Galvez MD, MD Date Time Electronically viewed and signed by .Robby Galvez MD, MD on 11/26/2016 00:31 .R/
[2016-11-26 01:00] LABS: ABNORMAL IP MESSAGE 1; BASOPHILS % 0.2 % (0.0-2.0); HEMATOCRIT 35.3 % (37.0-47.0); HEMOGLOBIN 11.7 g/dl (12.0-16.0); LYMPHOCYTES # 0.5 10^3/ul (0.8-2.9); LYMPHOCYTES % 8.4 % (15.0-51.0); MEAN CORPUSCULAR HEMOGLOBIN 30.9 pg (29.0-33.0); MEAN CORPUSCULAR HGB CONC 33.1 g/dl (32.0-37.0); MEAN CORPUSCULAR VOLUME 93.1 fl (82.0-101.0); MEAN PLATELET VOLUME 10.2 fl (7.4-10.4); MONOCYTE # 0.2 10^3/ul (0.3-0.9); MONOCYTES % 3.6 % (0.0-11.0); NEUTROPHIL # 5.3 10^3/ul (1.6-7.5); NEUTROPHILS % 87.5 % (39.0-77.0); PLATELET COUNT 225 10^3/UL (140-415); RED BLOOD COUNT 3.79 10^6/ul (4.20-5.40); RED CELL DISTRIBUTION WIDTH 13.9 % (11.5-14.5); WHITE BLOOD COUNT 6.1 10^3/ul (4.8-10.8)
[2016-11-26 01:05] LABS: POSITIVE DIFF @See below
[2016-11-26] MEDS ORDERED: ONDANSETRON 4 MG INJ IV STA (01:09)
[2016-11-26 01:16] LABS: INR 0.88; PROTIME 11.9 Sec (12.2-14.2); PT RATIO 0.9
[2016-11-26 01:17] LABS: PARTIAL THROMBOPLASTIN TIME 24.5 Sec (25.0-35.0)
[2016-11-26 01:22] LABS: ALANINE AMINOTRANSFERASE 25 IU/L (13-69); ALBUMIN 4.3 g/dl (3.3-4.9); ALBUMIN/GLOBULIN RATIO 1.07; ALKALINE PHOSPHATASE 54 IU/L (42-121); ANION GAP 13 (8-16); ASPARTATE AMINO TRANSFERASE 33 IU/L (15-46); BILIRUBIN,INDIRECT 0.8 mg/dl (0-1.1); BILIRUBIN,TOTAL 0.8 mg/dl (0.2-1.3); BLOOD UREA NITROGEN 14 mg/dl (7-20); CARBON DIOXIDE 28 mmol/L (21-31); CHLORIDE 99 mmol/L (97-110); CREATININE 0.62 mg/dl (0.44-1.00); GLUCOSE 130 mg/dl (70-220); POTASSIUM 4.4 mmol/L (3.5-5.1); SODIUM 136 mmol/L (135-144); TOTAL PROTEIN 8.3 g/dl (6.1-8.1)
[2016-11-26] MEDS ORDERED: morphine 2 MG INJ IV ONE (01:30)
[2016-11-26 01:36] LABS: TROPONIN-I < 0.012 ng/ml (0.00-0.12)
--- NOTE | 2016-11-26 01:53 | RADRPT ---
PROCEDURE: CT abdomen and pelvis without intravenous contrast. CLINICAL INDICATION: Pain. TECHNIQUE: CT of the abdomen/pelvis was performed utilizing axial images with reconstructions in s agittal and coronal planes. The administered radiation dose is CTDI 6.7 mGy, DLP 369 mGy-cm. One or more of the following dose reduction techniques were used: automated exposure control, adjustment of the mA and/or kV according to patient size and/or use of iterative reconstruction technique. COMPARISON: 06/15/2016 FINDINGS: Visualized Chest: The visualized lung bases are clear. Abdomen: The liver, spleen, pancreas, gallbladder,and adrenal glands are unremarkable. The kidneys are without hydronephrosis. No definite urinary calculi are seen. Numerous markedly dilated loops of small bowel are seen within the left abdomen and lower abdomen. T he more distal small bowel is collapsed. A transition point is seen within the midline pelvis in the vicinity of axial image 133 of series 3. The bowel has a tethered appearance in the region. This is adjacent to some sutures and multiple surgical clips in the pelvis. The appendix is not seen, likel y resected. There is no intra-abdominal free air or pneumatosis. There is a small, omentum containin g ventral abdominal hernia. There is no evidence of intra-abdominal adenopathy or free fluid. Pelvis: Prior hysterectomy is noted. The urinary bladder is unremarkable. There is no pelvic adenopathy of free fluid. Osseous structures: Unremarkable. IMPRESSION: Small bowel obstruction secondary to adhesions and / or an internal hernia within the lower abdomen and pelvis. RPTAT: HIKT .Santiago Connell MD, Date Time Electronically viewed and signed by .Santiago Connell MD, on 11/26/2016 01:53 .T/
[2016-11-26] MEDS ORDERED: PIPER-TAZO 3.375 GM IV (PMX) 100 ML IVPB ONE (02:00)
[2016-11-26 02:19] LABS: URINE BLOOD (Dip) POC Negative (NEGATIVE)
[2016-11-26] MEDS ORDERED: OMEP40CA6 PO (02:47)
--- NOTE | 2016-11-26 03:33 | HP ---
Date/Time of Note Date/Time of Note DATE: 11/26/16 TIME: 03:28 Assessment/Plan VTE Prophylaxis VTE Prophylaxis Intervention: SCD's Assessment/Plan Chief Complaint/Hosp Course This is a 70-year-old female being admitted to [facility] for: #1 small bowel obstruction: Likely secondary to adhesions from multiple abdominal surgeries/ radiation. CT scan shows: Small bowel obstruction secondary to adhesions and / or an internal hernia within the lower abdomen and pelvis. The current time we will keep the patient n.p.o. Normal saline at 100 cc an hour. Zofran 4 mg IV every 6 hours as needed nausea. NG tube to low intermittent suction. Dr. Figueroa notified by the ED physician. IV morphine for pain control #2 osteoporosis: Stable we will hold current home medications at this time and restart once SBO resolves. #3 DVT and GI prophylaxis: SCDs, PPI Further treatment strategy will be planned as per the clinical course Problems: HPI/ROS Admit Date/Time Admit Date/Time Hx of Present Illness Chief complaint: Abdominal pain, nausea and vomiting The patient is a 71-year-old female with a history of multiple abdominal surgeries and multiple small bowel obstructions, presenting to the ER because of abdominal pain, nausea, vomiting that began about 12 PM yesterday. Her previous symptoms were very similar to when she had a small bowel obstruction. She vomited initially food and mucus. Her last bowel movement was 2 days ago. She denies fever, chills, neck pain, chest pain. dyspnea. Allergies: NKDA Medications: See APR ROS Const: As per HPI Eyes : No pain discharge or redness or change in visual acuity ENT: No pain, sore throat, congestion, congestion, dysphagia or discharge Respiratory: No shortness of breath, cough, sputum, wheezing, or pleuritic pain Cardiovascular: No chest pain, palpitation, PND, or edema GI : As per HPI Genitourinary: No dysuria, hematuria, flank pain , discharge or CVA tenderness Musculoskeletal: No joint pain, back pain, neck pain, restricted range of motion in neck or joints Skin: No rash, bruising or hives Neuro: No headache, dizziness, syncope, seizure, focal weakness Endocrine: No polyuria, polydipsia, temperature intolerance Psych: No hallucination, depression, anxiety or suicidal ideation PMH/Family/Social Past Medical History Osteoporosis, cervical cancer, history of SBO Past Surgical History Multiple abdominal surgeries 7, including total abdominal hysterectomy, appendectomy, bladder surgery, status post radiation for cervical cancer Family History Significant Family History: heart disease Social History Alcohol Use: none Smoking Status: Never smoker Drug Use: none Exam/Review of Systems Vital Signs Vitals Vital Signs Date Time Temp Pulse Resp B/P Pulse Ox O2 Delivery O2 Flow Rate FiO2 11/26/16 03:10 85 18 114/76 95 Room Air 11/25/16 23:27 99.5 Exam Exam General: Patient is sitting in bed in mild distress from pain HEENT: Atraumatic, normocephalic. The pupils are equal, round and reactive. Extraocular motor are intact, NG tube in place Neck: Supple with full range of motion. No rigidity or meningismus Chest: Nontender Lungs: Clear to auscultation bilaterally no crackles rales or wheezing Heart: Normal S1-S2, Regular rhythm and rate. No murmur, S3, or S4 Abdomen: Soft, generalized tenderness to palpation, hypoactive bowel sounds Extremities: Normal to inspection, no edema no cyanosis Neurologic: Normal mental status, speech normal, cranial nerves II through XII are intact, motor and sensory are intact, no focal weakness Additional Comments PROCEDURE: CT abdomen and pelvis without intravenous contrast. CLINICAL INDICATION: Pain. TECHNIQUE: CT of the abdomen/pelvis was performed utilizing axial images with reconstructions in sagittal and coronal planes. The administered radiation dose is CTDI 6.7 mGy, DLP 369 mGy-cm. One or more of the following dose reduction techniques were used: automated exposure control, adjustment of the mA and/or kV according to patient size and/or use of iterative reconstruction technique. COMPARISON: 06/15/2016 FINDINGS: Visualized Chest: The visualized lung bases are clear. Abdomen: The liver, spleen, pancreas, gallbladder,and adrenal glands are unremarkable. The kidneys are without hydronephrosis. No definite urinary calculi are seen. Numerous markedly dilated loops of small bowel are seen within the left abdomen and lower abdomen. The more distal small bowel is collapsed. A transition point is seen within the midline pelvis in the vicinity of axial image 133 of series 3. The bowel has a tethered appearance in the region. This is adjacent to some sutures and multiple surgical clips in the pelvis. The appendix is not seen, likely resected. There is no intra-abdominal free air or pneumatosis. There is a small, omentum containing ventral abdominal hernia. There is no evidence of intra-abdominal adenopathy or free fluid. Pelvis: Prior hysterectomy is noted. The urinary bladder is unremarkable. There is no pelvic adenopathy of free fluid. Osseous structures: Unremarkable. IMPRESSION: Small bowel obstruction secondary to adhesions and / or an internal hernia within the lower abdomen and pelvis. RPTAT: HIKT .Santiago Connell MD, Date Time Electronically viewed and signed by .Santiago Connell MD, on 11/26/2016 01:53 .T/ CC: KAIN COFFEY MD PROCEDURE: XR Chest. CLINICAL INDICATION: Abdominal pain. TECHNIQUE: Single frontal view. COMPARISON: 01/18/2016. FINDINGS: There is a small calcified granuloma in the left upper lobe, unchanged. The lungs are otherwise clear. The heart size is normal. There is calcification in the aorta consistent with atherosclerosis. There is no pleural effusion. There is no pneumothorax. IMPRESSION: 1. Atherosclerosis. 2. Small calcified granuloma in the left upper lobe, unchanged. 3. Otherwise normal chest x-ray. RPTAT: QQ .Robby Galvez MD, Date Time Electronically viewed and signed by .Robby Galvez MD, MD on 11/26/2016 00:31 .R/ CC: KAIN COFFEY MD Labs Result Diagram: 11/26/16 0040 11/26/16 004 JENNIFER LOAZNO Nov 26, 2016 03:33
[2016-11-26] MEDS ORDERED: ONDANSETRON 4 MG INJ IV PRN (04:00)
[2016-11-26] MEDS ORDERED: morphine 2 MG INJ IV PRN (04:00)
[2016-11-26] MEDS ORDERED: NACL 0.9% 3 ML SYG IV SCH (04:00)
[2016-11-26 04:10] VITALS: Ht 154.9 cm; Wt 62.6 kg
[2016-11-26 04:19] VITALS: BP 104/58; RESP 16
[2016-11-26] MEDS: SOD CHLORIDE 0.9% 1,000 ML IV SCH ×2 (04:32→17:00)
[2016-11-26] MEDS: PANTOPRAZOLE 40 MG INJ IV SCH ×2 (04:33→17:00)
[2016-11-26 07:06] LABS: ALBUMIN 3.9 g/dl (3.3-4.9); ALBUMIN/GLOBULIN RATIO 1.05; CALCIUM 9.6 mg/dl (8.4-10.2); CREATININE 0.67 mg/dl (0.44-1.00); MAGNESIUM 1.8 mg/dl (1.7-2.5); POTASSIUM 3.8 mmol/L (3.5-5.1); TOTAL PROTEIN 7.6 g/dl (6.1-8.1)
[2016-11-26 07:28] VITALS: BP 123/68; RESP 20
[2016-11-26 13:22] VITALS: BP 107/73; RESP 20
--- NOTE | 2016-11-26 18:42 | CONS ---
Date/Time of Note Date/Time of Note DATE: 11/26/16 TIME: 18:42 Assessment/Plan Assessment/Plan Chief Complaint/Hosp Course 1. Small bowel obstruction: 2/2 to adhesions +/- internal hernia within the lower abdomen and pelvis -ngt to low intermittent suction unless ambulating -ambulate -npo -ivf 2. Recurrent reducible ventral hernia -monitor for obstruction/incarceration -weight loss -eventual hernia repair that can be done outpatient 3. Atherosclerosis -medical management 4. Osteoporosis -medical management 5. Overweight: BMI 26 -weight loss encouraged -diet and nutrition optimization 6. Normocytic normochromic anemia -monitor and transfuse prn 7. Hypocalcemia with hypoalbuminemia: nutritional vs. other -optimize nutrition as able Thank you. Patient seen and examined in collaboration with Dr. Lars Figueroa. Problems: Consultation Date/Type/Reason Admit Date/Time Date of Consultation: Nov 26, 2016 Type of Consultation: Surgical Reason for Consultation sbo Referring Provider: KAIN COFFEY MD Hx of Present Illness Annette Francois is a 71 yo woman who presents to [facility] with complaints of abdominal pain, predominantly in the lower abdomen. The pain is constant and is similar to pain that she experienced multiple times before when she diagnosed with bowel obstruction. Associated symptoms include nause and vomiting non-bloody emesis. She denies fevers, chills, sick contacts, myalgias, diarrhea, headaches dizziness, chest pain or palpitations.According to the patient she has had multiple episodes of bowel obstruction, all of which resolved without intervention. Significantly, she has had multiple abdominal surgeries, as well as chemotherapy. General surgery was asked to consult. Constitutional: No chills, No diaphoresis, No febrile Eyes: No visual change ENT: No discharge, No pain Respiratory: No cough, No shortness of breath Cardiovascular: No chest pain, No lightheadedness Gastrointestinal: other (as above), No diarrhea Genitourinary: No dysuria, No hematuria Musculoskeletal: No back pain, No restricted range of motion Skin: No bruising, No erythema Neurologic: No confusion, No dizziness Endocrine: No polyuria Lymphatic: No tender nodes Psychological: nl mood/affect, No anxiety, No confusion Immunologic: No pruritis, No urticaria Past Medical History multiple small bowel obstruction osteoporosis L4 fracture cervical cancer s/p chemo recurrent reducible ventral hernia Past Surgical History Hysterectomy Multiple abdominal surgeries (total abdominal hysterectomy, appendectomy, bladder surgery, adhesion lysis) Family History Significant Family History: no pertinent family hx Social History Alcohol Use: none Smoking Status: Never smoker Drug Use: none Exam/Review of Systems Vital Signs Vitals Vital Signs Date Time Temp Pulse Resp B/P Pulse Ox O2 Delivery O2 Flow Rate FiO2 11/26/16 13:22 99.0 74 20 107/73 96 11/26/16 03:10 Room Air Exam Constitutional: alert, oriented, well developed Psych: nl mood/affect Head: atraumatic, normocephalic Eyes: nl lids, nl sclera ENMT: mucosa pink and moist, nl nasal mucosa & septum, other (ng tube bilious) Neck: non-tender, supple Respiratory: normal air movement, No labored breathing Cardiovascular: nl pulses, regular rate and rhythm Gastrointestinal: bowel sounds, distended (min), soft, tender (min lower abdomen), No mass Genitourinary - Female: nl adnexae, nl external genitalia Musculoskeletal: nl extremities to inspection, nl gait and stance Extremities: normal pulses 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: nl mental status, nl speech, nl strength Skin: rash or lesions Lymph: nl lymph nodes Results Result Diagram: 11/26/16 0040 11/26/16 0523 Results 24 hrs Laboratory Tests Test 11/26/16 00:40 11/26/16 02:18 11/26/16 05:23 White Blood Count 6.1 # Red Blood Count 3.79 L Hemoglobin 11.7 L Hematocrit 35.3 L Mean Corpuscular Volume 93.1 Mean Corpuscular Hemoglobin 30.9 Mean Corpuscular Hemoglobin Concent 33.1 Red Cell Distribution Width 13.9 Platelet Count 225 Mean Platelet Volume 10.2 Neutrophils % 87.5 H Lymphocytes % 8.4 L Monocytes % 3.6 Eosinophils % 0.0 Basophils % 0.2 Nucleated Red Blood Cells % 0.0 Neutrophils # 5.3 Lymphocytes # 0.5 L Monocytes # 0.2 L Eosinophils # 0.0 Basophils # 0.0 Nucleated Red Blood Cells # 0.0 Prothrombin Time 11.9 L Prothrombin Time Ratio 0.9 INR International Normalized Ratio 0.88 Activated Partial Thromboplast Time 24.5 L Sodium Level 136 137 Potassium Level 4.4 3.8 Chloride Level 99 101 Carbon Dioxide Level 28 28 Anion Gap 13 12 Blood Urea Nitrogen 14 14 Creatinine 0.62 0.67 Glucose Level 130 118 Calcium Level 10.0 9.6 Total Bilirubin 0.8 1.0 Direct Bilirubin 0.00 0.00 Indirect Bilirubin 0.8 1.0 Aspartate Amino Transf (AST/SGOT) 33 25 Alanine Aminotransferase (ALT/SGPT) 25 25 Alkaline Phosphatase 54 55 Troponin I < 0.012 Total Protein 8.3 H 7.6 Albumin 4.3 3.9 Globulin 4.00 H 3.70 H Albumin/Globulin Ratio 1.07 1.05 Lipase 64 Bedside Urine pH (LAB) 7.5 Bedside Urine Protein (LAB) Negative Bedside Urine Glucose (UA) Negative Bedside Urine Ketones (LAB) 2+ H Bedside Urine Blood Negative Bedside Urine Nitrite (LAB) Negative Bedside Urine Leukocyte Esterase (L Negative Magnesium Level 1.8 Medications Medications Current Medications Sodium Chloride (NS) 1,000 ml @ 75 mls/hr [id number] IV Last administered on 17:00; Admin Dose 75 MLS/HR; Start 11/26/16 at 03:33 Ondansetron HCl (Zofran Inj) 4 mg Q6H PRN IV NAUSEA AND/OR VOMITING Last administered on 11/26/16 09:06; Admin Dose 4 MG; Start 11/26/16 at 04:00 Morphine Sulfate (morphine) 2 mg Q4H PRN IV SEVERE PAIN LEVEL 7-10; Start at 04:00 Pantoprazole (Protonix Iv) 40 mg BID@06,18 IV Last administered on 11/26/16 17:00; Admin Dose 40 MG; Start 11/26/16 at 04:00 Influenza Virus Vaccine (Fluzone) 0.5 ml ONCE ONCE IM* ; Start 11/27/16 at 09: 00; Stop 11/27/16 at 09:01 BELKIS AMARO NP Nov 26, 2016 18:42
[2016-11-26 20:00] VITALS: BP 110/62; PULSE 68; RESP 18
[2016-11-26] MEDS ORDERED: KETOROLAC 30 MG INJ IV STA (20:02)
[2016-11-27 02:00] VITALS: BP 108/58; PULSE 68; RESP 18
[2016-11-27] MEDS: PANTOPRAZOLE 40 MG INJ IV SCH ×2 (05:35→18:03)
[2016-11-27] MEDS: SOD CHLORIDE 0.9% 1,000 ML IV SCH ×3 (05:44→23:38)
[2016-11-27 07:16] LABS: ALBUMIN 3.1 g/dl (3.3-4.9); ALBUMIN/GLOBULIN RATIO 0.91; CALCIUM 8.3 mg/dl (8.4-10.2); CREATININE 0.68 mg/dl (0.44-1.00); POTASSIUM 3.7 mmol/L (3.5-5.1); TOTAL PROTEIN 6.5 g/dl (6.1-8.1)
[2016-11-27 08:31] VITALS: BP 99/59; RESP 16
[2016-11-27] MEDS ORDERED: INFLUENZA VIRUS VACCINE 0.5 ML (DISPENSING) IM* ONE (09:00)
[2016-11-27 15:38] VITALS: BP 115/69; RESP 16
--- NOTE | 2016-11-27 16:42 | PN ---
Date/Time of Note Date/Time of Note DATE: 11/27/16 TIME: 16:41 Assessment/Plan VTE Prophylaxis VTE Prophylaxis Intervention: LMWH Lines/Catheters IV Catheter Type (from Nrs): Peripheral IV Assessment/Plan Chief Complaint/Hosp Course 71 yo female wtih recurrent SBO 2/2 adhesions presenting again with SBO SBO: - Continue medical management for now with NG tube - Surgery is a consideration but not during this admission - Patient passing flatus, dc NG tomorrow if stable and trial of clears - IVF maintenance for now Dispo when tolerating PO and having BMs Problems: Subjective 24 Hr Interval Summary Free Text/Dictation Symptoms improved Feels well Spoke with Dr Figueroa, high risk for surgery Exam/Review of Systems Vital Signs Vitals Vital Signs Date Time Temp Pulse Resp B/P Pulse Ox O2 Delivery O2 Flow Rate FiO2 11/27/16 15:38 98.1 75 16 115/69 97 11/27/16 02:00 Room Air Intake and Output 11/26/16 11/26/16 11/27/16 15:00 23:00 07:00 Intake Total 100 ml 1000 ml Output Total 300 ml 150 ml Balance -300 ml 100 ml 850 ml Exam Constitutional: alert, oriented, well developed Psych: nl mood/affect, no complaints Head: atraumatic, normocephalic Eyes: EOMI, PERRL, nl conjunctiva, nl lids, nl sclera ENMT: nl external ears & nose, nl lips & teeth, nl nasal mucosa & septum Neck: non-tender, supple Respiratory: clear to auscultation, normal air movement Cardiovascular: nl pulses, regular rate and rhythm Gastrointestinal: nl liver, spleen, non-tender, soft Musculoskeletal: nl extremities to inspection, nl gait and stance Extremities: normal pulses 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, nl mental status, nl speech, nl strength Skin: nl turgor, No rash or lesions Lymph: nl lymph nodes Results Result Diagram: 11/26/16 0040 11/27/16 0514 Results 24 hrs Laboratory Tests Test 11/27/16 05:14 Sodium Level 140 Potassium Level 3.7 Chloride Level 108 Carbon Dioxide Level 26 Anion Gap 10 Blood Urea Nitrogen 16 Creatinine 0.68 Glucose Level 78 # Calcium Level 8.3 L Magnesium Level 2.0 Total Bilirubin 1.0 Direct Bilirubin 0.00 Indirect Bilirubin 1.0 Aspartate Amino Transf (AST/SGOT) 51 H Alanine Aminotransferase (ALT/SGPT) 26 Alkaline Phosphatase 48 Total Protein 6.5 # Albumin 3.1 L Globulin 3.40 H Albumin/Globulin Ratio 0.91 Medications Medications Current Medications Sodium Chloride (NS) 1,000 ml @ 75 mls/hr [id number] IV Last administered on 05:44; Admin Dose 75 MLS/HR; Start 11/26/16 at 03:33 Ondansetron HCl (Zofran Inj) 4 mg Q6H PRN IV NAUSEA AND/OR VOMITING Last administered on 11/26/16 09:06; Admin Dose 4 MG; Start 11/26/16 at 04:00 Morphine Sulfate (morphine) 2 mg Q4H PRN IV SEVERE PAIN LEVEL 7-10; Start at 04:00 Pantoprazole (Protonix Iv) 40 mg BID@06,18 IV Last administered on 11/27/16 05:35; Admin Dose 40 MG; Start 11/26/16 at 04:00 PAL GOINS MD Nov 27, 2016 16:42
--- NOTE | 2016-11-27 17:06 | PN ---
Date/Time of Note Date/Time of Note DATE: 11/27/16 TIME: 17:02 Assessment/Plan Lines/Catheters IV Catheter Type (from Nrs): Peripheral IV Assessment/Plan Chief Complaint/Hosp Course 1. Small bowel obstruction: 2/2 to adhesions +/- internal hernia within the lower abdomen and pelvis; +flatus -ngt clamp -ambulate -npo- if asymptomatic may start clears -ivf 2. Recurrent reducible ventral hernia -monitor for obstruction/incarceration -weight loss -eventual hernia repair that can be done outpatient 3. Atherosclerosis -medical management 4. Osteoporosis -medical management 5. Overweight: BMI 26 -weight loss encouraged -diet and nutrition optimization 6. Normocytic normochromic anemia -monitor and transfuse prn 7. Hypocalcemia with hypoalbuminemia: nutritional vs. other -optimize nutrition as able Thank you. Patient seen and examined in collaboration with Dr. Lars Figueroa. Problems: Subjective 24 Hr Interval Summary Continues to have lower abdominal pain but improved. No nausea/vomiting. Large amount output from NGT. +flatus. No fevers, chills, sob, congested cough, n/v/d/ dysuria. Exam/Review of Systems Vital Signs Vitals Vital Signs Date Time Temp Pulse Resp B/P Pulse Ox O2 Delivery O2 Flow Rate FiO2 11/27/16 15:38 98.1 75 16 115/69 97 11/27/16 02:00 Room Air Intake and Output 11/26/16 11/26/16 11/27/16 15:00 23:00 07:00 Intake Total 100 ml 1000 ml Output Total 300 ml 150 ml Balance -300 ml 100 ml 850 ml Exam Free Text/Dictation Constitutional: alert, oriented, well developed Psych: nl mood/affect Head: atraumatic, normocephalic Eyes: nl lids, nl sclera ENMT: mucosa pink and moist, nl nasal mucosa & septum, other (ng tube bilious) Neck: non-tender, supple Respiratory: normal air movement, No labored breathing Cardiovascular: nl pulses, regular rate and rhythm Gastrointestinal: bowel sounds, distended (min), soft, tender (min lower abdomen-improved), No mass Genitourinary - Female: nl adnexae, nl external genitalia Musculoskeletal: nl extremities to inspection, nl gait and stance Extremities: normal pulses 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: nl mental status, nl speech, nl strength Skin: rash or lesions Lymph: nl lymph nodes Results Result Diagram: 11/26/16 0040 11/27/16 0514 BELKIS AMARO NP Nov 27, 2016 17:06
[2016-11-27 20:00] VITALS: BP 94/51; RESP 20
[2016-11-28 02:00] VITALS: BP 104/59; RESP 20
[2016-11-28] MEDS: PANTOPRAZOLE 40 MG INJ IV SCH ×2 (05:54→17:40)
[2016-11-28 07:36] VITALS: BP 110/61; RESP 18
[2016-11-28 08:54] LABS: BASOPHILS % 0.4 % (0.0-2.0); EOSINOPHILS % 0.6 % (0.0-7.0); HEMOGLOBIN 10.5 g/dl (12.0-16.0); LYMPHOCYTES # 0.7 10^3/ul (0.8-2.9); LYMPHOCYTES % 13.6 % (15.0-51.0); MEAN CORPUSCULAR HEMOGLOBIN 31.3 pg (29.0-33.0); MEAN CORPUSCULAR HGB CONC 31.8 g/dl (32.0-37.0); MEAN CORPUSCULAR VOLUME 98.5 fl (82.0-101.0); MONOCYTE # 0.3 10^3/ul (0.3-0.9); MONOCYTES % 5.4 % (0.0-11.0); NEUTROPHIL # 4.2 10^3/ul (1.6-7.5); NEUTROPHILS % 79.8 % (39.0-77.0); PLATELET COUNT 219 10^3/UL (140-415); RED BLOOD COUNT 3.35 10^6/ul (4.20-5.40); RED CELL DISTRIBUTION WIDTH 13.5 % (11.5-14.5); WHITE BLOOD COUNT 5.2 10^3/ul (4.8-10.8)
[2016-11-28 09:16] LABS: ALBUMIN 3.5 g/dl (3.3-4.9); CALCIUM 8.1 mg/dl (8.4-10.2); CREATININE 0.64 mg/dl (0.44-1.00); MAGNESIUM 1.9 mg/dl (1.7-2.5); POTASSIUM 4.5 mmol/L (3.5-5.1)
[2016-11-28] MEDS: IBUPROFEN 600 MG TAB PO PRN (12:12)
[2016-11-28 14:48] VITALS: BP 94/55; RESP 20
--- NOTE | 2016-11-28 15:28 | PN ---
Date/Time of Note Date/Time of Note DATE: 11/28/16 TIME: 15:25 Assessment/Plan VTE Prophylaxis VTE Prophylaxis Intervention: heparin Lines/Catheters IV Catheter Type (from Nrs): Peripheral IV Assessment/Plan Chief Complaint/Hosp Course 71 yo female wtih recurrent SBO 2/2 adhesions presenting again with SBO SBO: - Continue medical management - NG removed, passing flatus, no BM yet - Trial of clears - Surgery is a consideration but not during this admission, very high risk per Dr Carolina Garcia when tolerating PO and having BMs Problems: Subjective 24 Hr Interval Summary Free Text/Dictation NG tube removed Passing flatus So far can tolerate clears Exam/Review of Systems Vital Signs Vitals Vital Signs Date Time Temp Pulse Resp B/P Pulse Ox O2 Delivery O2 Flow Rate FiO2 11/28/16 14:48 98.6 78 20 94/55 97 11/27/16 02:00 Room Air Intake and Output 11/27/16 11/27/16 11/28/16 15:00 23:00 07:00 Intake Total 750 ml 718 ml Output Total 0 ml Balance 750 ml 718 ml Exam Constitutional: alert, oriented, well developed Psych: nl mood/affect, no complaints Head: atraumatic, normocephalic Eyes: EOMI, PERRL, nl conjunctiva, nl lids, nl sclera ENMT: nl external ears & nose, nl lips & teeth, nl nasal mucosa & septum Neck: non-tender, supple Respiratory: clear to auscultation, normal air movement Cardiovascular: nl pulses, regular rate and rhythm Gastrointestinal: nl liver, spleen, non-tender, soft Musculoskeletal: nl extremities to inspection, nl gait and stance Extremities: normal pulses 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, nl mental status, nl speech, nl strength Skin: nl turgor, No rash or lesions Lymph: nl lymph nodes Results Result Diagram: 11/28/16 0756 11/28/16 0756 Results 24 hrs Laboratory Tests Test 11/28/16 07:56 White Blood Count 5.2 Red Blood Count 3.35 L Hemoglobin 10.5 L Hematocrit 33.0 L Mean Corpuscular Volume 98.5 Mean Corpuscular Hemoglobin 31.3 Mean Corpuscular Hemoglobin Concent 31.8 L Red Cell Distribution Width 13.5 Platelet Count 219 Mean Platelet Volume 10.0 Neutrophils % 79.8 H Lymphocytes % 13.6 L Monocytes % 5.4 Eosinophils % 0.6 Basophils % 0.4 Nucleated Red Blood Cells % 0.0 Neutrophils # 4.2 Lymphocytes # 0.7 L Monocytes # 0.3 Eosinophils # 0.0 Basophils # 0.0 Nucleated Red Blood Cells # 0.0 Sodium Level 140 Potassium Level 4.5 Chloride Level 111 H Carbon Dioxide Level 19 L Anion Gap 15 Blood Urea Nitrogen 16 Creatinine 0.64 Glucose Level 60 #L Calcium Level 8.1 L Magnesium Level 1.9 Total Bilirubin 1.0 Direct Bilirubin 0.00 Indirect Bilirubin 1.0 Aspartate Amino Transf (AST/SGOT) 25 Alanine Aminotransferase (ALT/SGPT) 25 Alkaline Phosphatase 58 Total Protein 7.0 Albumin 3.5 Globulin 3.50 H Albumin/Globulin Ratio 1.00 Medications Medications Current Medications Sodium Chloride (NS) 1,000 ml @ 75 mls/hr [id number] IV Last administered on 23:38; Admin Dose 75 MLS/HR; Start 11/26/16 at 03:33 Ondansetron HCl (Zofran Inj) 4 mg Q6H PRN IV NAUSEA AND/OR VOMITING Last administered on 11/26/16 09:06; Admin Dose 4 MG; Start 11/26/16 at 04:00 Pantoprazole (Protonix Iv) 40 mg BID@06,18 IV Last administered on 11/28/16 05:54; Admin Dose 40 MG; Start 11/26/16 at 04:00 Ibuprofen (Motrin) 600 mg Q6H PRN PO PAIN Last administered on 11/28/16 12:12 ; Admin Dose 600 MG; Start 11/28/16 at 12:00 PAL GOINS MD Nov 28, 2016 15:28
[2016-11-28 20:52] VITALS: BP 104/63; RESP 16
--- NOTE | 2016-11-28 22:54 | PN ---
Date/Time of Note Date/Time of Note DATE: 11/28/16 TIME: 22:47 Assessment/Plan Lines/Catheters IV Catheter Type (from [facility]): Saline Lock Assessment/Plan Chief Complaint/Hosp Course 1. Small bowel obstruction: 2/2 to adhesions +/- internal hernia within the lower abdomen and pelvis; +flatus; ngt out; tolerating clears -ambulate -if continues tolerating diet, advance diet as shelley 2. Recurrent reducible ventral hernia -monitor for obstruction/incarceration -weight loss -eventual hernia repair that can be done outpatient 3. Atherosclerosis -medical management 4. Osteoporosis -medical management 5. Overweight: BMI 26 -weight loss encouraged -diet and nutrition optimization 6. Normocytic normochromic anemia -monitor and transfuse prn 7. Hypocalcemia: nutritional vs. other -optimize nutrition as able Thank you. Patient seen and examined in collaboration with Dr. Lars Figueroa. Problems: Subjective 24 Hr Interval Summary NG tube out. Patient feels ok. Improved abdominal tenderness. +flatus. No n/v/d/ dysuria, cp, palpitations, sob, congested cough. Continues to ambulate. Tolerating clears. Exam/Review of Systems Vital Signs Vitals Vital Signs Date Time Temp Pulse Resp B/P Pulse Ox O2 Delivery O2 Flow Rate FiO2 11/28/16 20:52 98.4 67 16 104/63 98 11/27/16 02:00 Room Air Intake and Output 11/27/16 11/27/16 11/28/16 15:00 23:00 07:00 Intake Total 750 ml 718 ml Output Total 0 ml Balance 750 ml 718 ml Exam Free Text/Dictation Constitutional: alert, oriented, well developed Psych: nl mood/affect Head: atraumatic, normocephalic Eyes: nl lids, nl sclera ENMT: mucosa pink and moist, nl nasal mucosa & septum, Neck: non-tender, supple Respiratory: normal air movement, No labored breathing Cardiovascular: nl pulses, regular rate and rhythm Gastrointestinal: bowel sounds, distended (min), soft, tender (min lower abdomen-cont to improve), No mass Genitourinary - Female: nl adnexae, nl external genitalia Musculoskeletal: nl extremities to inspection, nl gait and stance Extremities: normal pulses 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: nl mental status, nl speech, nl strength Skin: rash or lesions Lymph: nl lymph nodes Results Result Diagram: 11/28/16 0756 11/28/16 0756 BELKIS AMARO NP Nov 28, 2016 22:54
[2016-11-29 02:38] VITALS: BP 106/57; RESP 18
[2016-11-29] MEDS: PANTOPRAZOLE 40 MG INJ IV SCH (05:53)
[2016-11-29 07:18] VITALS: BP 103/68; RESP 18
[2016-11-29] MEDS: IBUPROFEN 600 MG TAB PO PRN ×2 (09:32→17:12)
[2016-11-29 10:03] LABS: ALBUMIN 4.1 g/dl (3.3-4.9); ALBUMIN/GLOBULIN RATIO 1.24; BILIRUBIN,INDIRECT 1.1 mg/dl (0-1.1); BILIRUBIN,TOTAL 1.1 mg/dl (0.2-1.3); CALCIUM 8.4 mg/dl (8.4-10.2); CREATININE 0.59 mg/dl (0.44-1.00); MAGNESIUM 1.9 mg/dl (1.7-2.5); TOTAL PROTEIN 7.4 g/dl (6.1-8.1)
[2016-11-29 12:30] VITALS: BP 109/75; RESP 18
--- NOTE | 2016-11-29 14:28 | PN ---
Date/Time of Note Date/Time of Note DATE: 11/29/16 TIME: 14:25 Assessment/Plan Lines/Catheters IV Catheter Type (from [facility]): Saline Lock Assessment/Plan Chief Complaint/Hosp Course 1. Small bowel obstruction: 2/2 to adhesions +/- internal hernia within the lower abdomen and pelvis; +flatus -ambulate -if continues tolerating diet, advance diet as shelley 2. Recurrent reducible ventral hernia -monitor for obstruction/incarceration -weight loss -eventual hernia repair that can be done outpatient 3. Atherosclerosis -medical management 4. Osteoporosis -medical management 5. Overweight: BMI 26 -weight loss encouraged -diet and nutrition optimization 6. Normocytic normochromic anemia -monitor and transfuse prn 7. Hypocalcemia: nutritional vs. other -optimize nutrition as able Thank you. Patient seen and examined in collaboration with Dr. Lars Figueroa. Problems: Subjective 24 Hr Interval Summary Feels well. Tolerating clear liquids. Advanced to full liquids. No abdominal tenderness/pain. +flatus. No fevers, chills, sob, congested cough, n/v/d/ dysuria. Exam/Review of Systems Vital Signs Vitals Vital Signs Date Time Temp Pulse Resp B/P Pulse Ox O2 Delivery O2 Flow Rate FiO2 11/29/16 12:30 97.9 72 18 109/75 99 11/27/16 02:00 Room Air Intake and Output 11/28/16 11/28/16 11/29/16 15:00 23:00 07:00 Intake Total 532 ml 480 ml Balance 532 ml 480 ml Exam Free Text/Dictation Constitutional: alert, oriented, well developed Psych: nl mood/affect Head: atraumatic, normocephalic Eyes: nl lids, nl sclera ENMT: mucosa pink and moist, nl nasal mucosa & septum, Neck: non-tender, supple Respiratory: normal air movement, No labored breathing Cardiovascular: nl pulses, regular rate and rhythm Gastrointestinal: bowel sounds, distended (min), soft, non tender, No mass Genitourinary - Female: nl adnexae, nl external genitalia Musculoskeletal: nl extremities to inspection, nl gait and stance Extremities: normal pulses 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: nl mental status, nl speech, nl strength Skin: rash or lesions Lymph: nl lymph nodes Results Result Diagram: 11/28/16 0756 11/29/16 0811 BELKIS AMARO NP Nov 29, 2016 14:28
[2016-11-29] MEDS: PANTOPRAZOLE (EC) 40 MG TAB PO SCH (17:12)
--- NOTE | 2016-11-29 17:40 | PN ---
Date/Time of Note Date/Time of Note DATE: 11/29/16 TIME: 17:34 Assessment/Plan VTE Prophylaxis VTE Prophylaxis Intervention: ambulation Lines/Catheters IV Catheter Type (from Nrs): Saline Lock Assessment/Plan Chief Complaint/Hosp Course 1. Small bowel obstruction: 2/2 to adhesions Patient is flatus positive Patient has not had a bowel movement this point but is tolerating clear diet, advance to soft diet 2. Recurrent reducible ventral hernia -monitor for obstruction/incarceration -weight loss -eventual hernia repair that can be done outpatient 3. Obesity Lifestyle changes 4. Normocytic normochromic anemia Monitor Prophylaxis: Ambulation Problems: Subjective 24 Hr Interval Summary Constitutional: no complaints Exam/Review of Systems Vital Signs Vitals Vital Signs Date Time Temp Pulse Resp B/P Pulse Ox O2 Delivery O2 Flow Rate FiO2 11/29/16 12:30 97.9 72 18 109/75 99 11/27/16 02:00 Room Air Intake and Output 11/28/16 11/28/16 11/29/16 15:00 23:00 07:00 Intake Total 532 ml 480 ml Balance 532 ml 480 ml Exam Constitutional: alert, oriented Respiratory: clear to auscultation Cardiovascular: regular rate and rhythm Gastrointestinal: soft, No distended Musculoskeletal: nl extremities to inspection Results Result Diagram: 11/28/16 0756 11/29/16 0825 Results 24 hrs Laboratory Tests Test 11/29/16 08:25 Sodium Level 140 Potassium Level 4.0 Chloride Level 109 Carbon Dioxide Level 19 L Anion Gap 16 Blood Urea Nitrogen 7 # Creatinine 0.59 Glucose Level 87 Calcium Level 8.4 Magnesium Level 1.9 Total Bilirubin 1.1 Direct Bilirubin 0.00 Indirect Bilirubin 1.1 Aspartate Amino Transf (AST/SGOT) 31 Alanine Aminotransferase (ALT/SGPT) 29 Alkaline Phosphatase 61 Total Protein 7.4 Albumin 4.1 Globulin 3.30 H Albumin/Globulin Ratio 1.24 Medications Medications Current Medications Ondansetron HCl (Zofran Inj) 4 mg Q6H PRN IV NAUSEA AND/OR VOMITING Last administered on 11/26/16 09:06; Admin Dose 4 MG; Start 11/26/16 at 04:00 Ibuprofen (Motrin) 600 mg Q6H PRN PO PAIN Last administered on 11/29/16 17:12 ; Admin Dose 600 MG; Start 11/28/16 at 12:00 Pantoprazole (Protonix Tab) 40 mg BID@06,18 PO Last administered on 11/29/16t 17:12; Admin Dose 40 MG; Start 11/29/16 at 18:00 VICENTE KEY Nov 29, 2016 17:40
[2016-11-29 20:34] VITALS: BP 110/66; RESP 18
[2016-11-29] MEDS ORDERED: IBUPROFEN 600 MG TAB PO PRN (21:00)
[2016-11-30 02:00] VITALS: BP 104/58; RESP 18
[2016-11-30] MEDS: PANTOPRAZOLE (EC) 40 MG TAB PO SCH (05:58)
[2016-11-30 07:22] LABS: ALBUMIN 3.8 g/dl (3.3-4.9); BILIRUBIN,INDIRECT 0.9 mg/dl (0-1.1); BILIRUBIN,TOTAL 0.9 mg/dl (0.2-1.3); CREATININE 0.6 mg/dl (0.44-1.00); MAGNESIUM 1.7 mg/dl (1.7-2.5); POTASSIUM 4.8 mmol/L (3.5-5.1); TOTAL PROTEIN 7.6 g/dl (6.1-8.1)
[2016-11-30 08:04] VITALS: BP 115/70; RESP 18
[2016-11-30 14:00] VITALS: BP 110/60; RESP 18
--- NOTE | 2016-11-30 15:02 | PN ---
Date/Time of Note Date/Time of Note DATE: 11/30/16 TIME: 14:59 Assessment/Plan Lines/Catheters IV Catheter Type (from [facility]): Saline Lock Assessment/Plan Chief Complaint/Hosp Course 1. Small bowel obstruction: 2/2 to adhesions +/- internal hernia within the lower abdomen and pelvis; +bowel function and tolerating solid diet -patient may be discharged per medical team. 2. Recurrent reducible ventral hernia -monitor for obstruction/incarceration -weight loss -eventual hernia repair that can be done outpatient 3. Atherosclerosis -medical management 4. Osteoporosis -medical management 5. Overweight: BMI 26 -weight loss encouraged -diet and nutrition optimization 6. Normocytic normochromic anemia -monitor and transfuse prn 7. Hypocalcemia: nutritional vs. other -optimize nutrition as able Thank you. Patient seen and examined in collaboration with Dr. Lars Figueroa. Problems: Subjective 24 Hr Interval Summary Feels well. + bowel function. No pain. Tolerating diet. No fevers, chills, sob, congested cough, n/v/d/dysuria. Exam/Review of Systems Vital Signs Vitals Vital Signs Date Time Temp Pulse Resp B/P Pulse Ox O2 Delivery O2 Flow Rate FiO2 11/30/16 14:00 98.2 70 18 110/60 100 11/27/16 02:00 Room Air Intake and Output 11/29/16 11/29/16 11/30/16 15:00 23:00 07:00 Intake Total 1880 ml Balance 1880 ml Exam Free Text/Dictation Constitutional: alert, oriented, well developed Psych: nl mood/affect Head: atraumatic, normocephalic Eyes: nl lids, nl sclera ENMT: mucosa pink and moist, nl nasal mucosa & septum, Neck: non-tender, supple Respiratory: normal air movement, No labored breathing Cardiovascular: nl pulses, regular rate and rhythm Gastrointestinal: bowel sounds, nondistended, soft, non tender, No mass Genitourinary - Female: nl adnexae, nl external genitalia Musculoskeletal: nl extremities to inspection, nl gait and stance Extremities: normal pulses 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: nl mental status, nl speech, nl strength Skin: rash or lesions Lymph: nl lymph nodes Results Result Diagram: 11/28/16 0756 11/30/16 0614 BELKIS AMARO NP Nov 30, 2016 15:02
--- NOTE | 2016-11-30 16:11 | PDOCDIS ---
Discharge Instructions CONDITION Patient Condition: Good HOME CARE INSTRUCTIONS: Diet Instructions: Regular ACTIVITY: Activity Restrictions: No Restrictions FOLLOW UP/APPOINTMENTS Follow-up Plan FOLLOW UP WITH YOUR PRIMARY CARE PHYSICIAN IN 1-2 WEEKS VICENTE KEY Nov 30, 2016 16:11
--- NOTE | 2016-11-30 16:16 | DS ---
Date/Time of Note Date/Time of Note DATE: 11/30/16 TIME: 16:11 Discharge Summary Admission/Discharge Info Admit Date/Time Nov 26, 2016 at 02:52 Discharge Date/Time November 30, 2016 Discharge Diagnosis 1. Small bowel obstruction: 2/2 to adhesions-resolved Patient is tolerating a regular diet and is having bowel movements 2. Recurrent reducible ventral hernia -eventual hernia repair that can be done outpatient 3. Obesity Lifestyle changes 4. Normocytic normochromic anemia Stable Patient Condition: Good Hospital Course Patient is a 71-year-old female with a history of multiple abdominal surgeries and multiple small bowel obstructions, presenting to the ER because of abdominal pain, nausea, vomiting. Patient had a CT abdomen that showed small bowel obstruction, patient was seen by surgery and her condition was for conservative care. Patient's diet was slowly advanced and ultimately she did tolerate regular diet and was having bowel movements. Patient was clear for DC per surgery. On day of discharge patient vitals, labs physical exam stable no further acute complaints questions are answered. Home Meds Active Scripts Docusate Sodium* (Colace*) 100 Mg Capsule, 100 MG PO BID for 30 Days, CAP Prov:KEVEN GIFFORD 01/23/16 Alendronate Sodium* (Fosamax*) 70 Mg Tablet, 70 MG PO Th@0730 for 30 Days, TAB Prov:KEVEN GIFFORD 01/23/16 Reported Medications Omeprazole* (Omeprazole*) 40 Mg Capsule.dr, 40 MG PO DAILY, #30 CAP 11/26/16 Discontinued Scripts Ibuprofen* (Motrin*) 800 Mg Tab, 7 MG PO Q6H Y for PAIN for 7 Days, #30 TAB Prov:SALO SIMMONS MD 06/15/16 Follow-up Plan FOLLOW UP WITH YOUR PRIMARY CARE PHYSICIAN IN 1-2 WEEKS Primary Care Provider Krishna Mauricio Time spent on discharge: > 30 minutes VICENTE KEY Nov 30, 2016 16:16
== END 2016-11-30 18:20 | disposition home or self-care (01) | DRG 390 ==
LOC: E/R 23:25 → MS2 11-26 02:52
PROVIDERS: ADMIT Family Medicine; ATTEND Family Medicine
DX: K56.609 Unspecified intestinal obstruction, unspecified as to partial versus complete obstruction (principal); E88.09 Other disorders of plasma-protein metabolism, not elsewhere classified; D64.9 Anemia, unspecified; K43.2 Incisional hernia without obstruction or gangrene; M81.0 Age-related osteoporosis without current pathological fracture; E83.51 Hypocalcemia; E66.3 Overweight; Z68.26 Body mass index [BMI] 26.0-26.9, adult
CPT/HCPCS: 36415; 71010; 74176; 80053; 81003; 83690; 83735; 84100; 84484; 85025; 85610; 85730; 90686; 96374; 96375; C9113; J1885; J2270; J2405; J2543; J7030

== ENCOUNTER 2017-04-28 05:58 | Day surgery (SDC) | END 2017-04-28 11:30 | disposition home or self-care (01) ==

== ENCOUNTER 2017-08-19 02:54 | Inpatient (IN) | END 2017-08-21 19:00 | disposition home or self-care (01) | DRG 390 ==

== ENCOUNTER 2017-10-15 17:59 | Inpatient (IN) | END 2017-10-18 17:15 | disposition home or self-care (01) | DRG 390 ==

== ENCOUNTER 2018-03-30 02:15 | Inpatient (IN) | payer OTHER ==
[~2018-03-30] VITALS: Ht 154.9 cm; Wt 63.3 kg
[~2018-03-30 02:15] MED LIST changes: -ALEN70TA30 PO; +ALEN70TA5 PO; -DOCU-144 PO; +DOCU-159 PO; -IBUP800T25 PO; +MULTI PO
--- NOTE | 2018-03-30 02:45 | ERD ---
ER Documentation Chief Complaint Chief Complaint abdominal pain HPI The patient is a 72-year-old female, presenting to the ER because of diffuse abdominal pain for the last 2 days, nausea, had similar symptom previously from small bowel obstruction, denies, chills, neck pain, chest pain, vomiting, dizzy, diarrhea, constipation. She does not smoke nor drink Past medical history: multiple small bowel obstruction Surgical history: Hysterectomy, urinary bladder suspension, appendectomy ROS All systems reviewed and are negative except as per history of present illness. Medications Home Meds Reported Medications Glucosamine Sulfate 2KCL (GLUCOSAMINE) 1,000 Mg Tablet, 1000 MG PO DAILY, TAB 03/30/18 Kid[place]-3 Fatty Acids/Fish Oil (Fish Oil 1,000 mg Capsule) 1 Each Capsule, 1 EACH PO DAILY, CAP 03/30/18 Multivitamins* (Theragran*) 1 Tab Tab, 1 TAB PO DAILY, TAB 08/19/17 Discontinued Reported Medications Alendronate Sodium* (Fosamax*) 70 Mg Tablet, 70 MG PO QFRIDAY, #4 TAB 08/19/17 Docusate Sodium* (Docusate Sodium*) 100 Mg Capsule, 100 MG PO BID, #60 CAP 08/19/17 Allergies Allergies: Coded Allergies: No Known Allergies (Verified Allergy, Mild, 03/30/18) PMhx/Soc History of Surgery: Yes (hysterectomy) Anesthesia Reaction: No Hx 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 Disorder: No Hx Respiratory Disorders: No Hx Cardiac Disorders: No Hx Psychiatric Problems: No Hx Miscellaneous Medical Probl: No Hx Alcohol Use: No Hx Substance Use: No Hx Tobacco Use: No Physical Exam Vitals Vital Signs Date Temp Pulse Resp B/P (MAP) Pulse Ox O2 O2 Flow FiO2 Time Delivery Rate 03/30/18 73 13 121/88 97 Room Air 04:03 (99) 03/30/18 99.4 89 20 159/63 99 02:26 (95) Physical Exam Const: No acute distress. Head: Atraumatic. Eyes: Normal Conjunctiva. ENT: Normal External Ears, Nose and Mouth. Neck: Full range of motion. No meningismus. Resp: Clear to auscultation bilaterally. Cardio: Regular rate and rhythm. Abd: Soft, non distended, normal bowel sounds, diffuse vague and mild abdominal tenderness, no rigidity/rebound/CVA tenderness Skin: No petechiae or rashes. Back: No midline or flank tenderness. Ext: No cyanosis, or edema. Neur: Awake and alert. No focal deficit Psych: Normal Mood and Affect. Result Diagram: 03/30/18 0320 03/30/18 0320 Results 24 hrs Laboratory Tests Test 03/30/18 03:20 03/30/18 04:00 White Blood Count 4.7 10^3/ul Red Blood Count 3.59 10^6/ul Hemoglobin 11.2 g/dl Hematocrit 33.6 % Mean Corpuscular Volume 93.6 fl Mean Corpuscular Hemoglobin 31.2 pg Mean Corpuscular Hemoglobin Concent 33.3 g/dl Red Cell Distribution Width 14.4 % Platelet Count 268 10^3/UL Mean Platelet Volume 10.0 fl Immature Granulocytes % 0.200 % Neutrophils % 78.9 % Lymphocytes % 14.2 % Monocytes % 5.7 % Eosinophils % 0.6 % Basophils % 0.4 % Nucleated Red Blood Cells % 0.0 /100WBC Immature Granulocytes # 0.010 10^3/ul Neutrophils # 3.7 10^3/ul Lymphocytes # 0.7 10^3/ul Monocytes # 0.3 10^3/ul Eosinophils # 0.0 10^3/ul Basophils # 0.0 10^3/ul Nucleated Red Blood Cells # 0.0 10^3/ul Sodium Level 137 mmol/L Potassium Level 4.2 mmol/L Chloride Level 100 mmol/L Carbon Dioxide Level 27 mmol/L Anion Gap 10 Blood Urea Nitrogen 20 mg/dl Creatinine 0.51 mg/dl Est Glomerular Filtrat Rate mL/min > 60 mL/min Glucose Level 115 mg/dl Calcium Level 9.5 mg/dl Total Bilirubin 0.6 mg/dl Direct Bilirubin 0.00 mg/dl Indirect Bilirubin 0.6 mg/dl Aspartate Amino Transf (AST/SGOT) 30 IU/L Alanine Aminotransferase (ALT/SGPT) 13 IU/L Alkaline Phosphatase 56 IU/L Total Protein 8.0 g/dl Albumin 4.3 g/dl Globulin 3.70 g/dl Albumin/Globulin Ratio 1.16 Lipase 129 U/L Bedside Urine pH (LAB) 7.0 Bedside Urine Protein (LAB) Negative Bedside Urine Glucose (UA) Negative Bedside Urine Ketones (LAB) 3+ Bedside Urine Blood Trace-lysed Bedside Urine Nitrite (LAB) Negative Bedside Urine Leukocyte Esterase (L Negative Current Medications Medications Dose Sig/Alma Start Time Status Last (Trade) Ordered Route PRN Stop Time Admin Dose Reason Admin Morphine 2 mg ONCE STAT 03/30/18 DC 03/30/18 Sulfate IV 02:51 03:31 (morphine) 03/30/18 02:53 Ondansetron 4 mg ONCE STAT 03/30/18 DC 03/30/18 HCl (Zofran IV 02:51 03:30 Inj) 03/30/18 02:53 Piperacillin 100 ml @ ONCE ONCE 03/30/18 03/30/18 Sod/ 200 mls/hr IVPB 04:30 04:16 Tazobactam 03/30/18 04:59 Sod Procedures/MDM [place] [id number] Radiology Main Line: [phone] DIAGNOSTIC IMAGING REPORT Patient: LINWOOD BRENNER : 1945 Age: 72 Sex: F MR #: [id number] DOS: 03/30/18 025 Ordering MD: KAIN COFFEY MD Location: E/R Room/Bed: PROCEDURE: CT Abdomen and pelvis without contrast. CLINICAL INDICATION: Abdominal pain TECHNIQUE: CT scan of the abdomen and pelvis without contrast was performed on a multidetector high-resolution CT scan. . Coronal and sagittal reformatted images were obtained from the axial source images. Standard CT scan of the abdomen pelvis without contrast protocols were performed. The total exam CTDI equals 7.3 mGy and the total exam DLP equals 429.79 mGy-cm. One or more of the following dose reduction techniques were used: - Automated exposure control. - Adjustment of the mA and/or kV according to patient size. Use of iterative reconstruction technique. Dicom images are available COMPARISON: CT abdomen pelvis 10/15/2017 FINDINGS: Again noted is previous abdominal surgery with surgical clips right abdomen and right and left lower quadrants of the abdomen and along the retroperitoneum. Again noted are dilated loops of small bowel in the left abdomen and central lower abdomen with the more normal-caliber proximal small bowel and distal small bowel consistent with partial closed loop obstruction. Stomach unremarkable. Diverticular changes of the sigmoid colon but no CT evidence of diverticulitis. Remainder the colon is unremarkable. No evidence of appendicitis. No evidence of intra-abdominal free air, free fluid, abscesses or lymphadenopathy. Kidneys are normal in size without intra renal masses or calculi bilaterally. Mild prominent renal pelves but no definite hydronephrosis bilaterally. Prominent proximal left ureter. Ureters are otherwise unremarkable. Partially contracted otherwise unremarkable urinary bladder. Status post previous hysterectomy. No adnexal masses. Hepatic fatty infiltration with small focal fatty sparing subcapsular right lobe of the liver adjacent to the ligamentum teres. No evidence of hepatic masses. Spleen pancreas and adrenal glands unremarkable. Cholelithiasis with an otherwise unremarkable distended gallbladder. No evidence biliary ductal dilation. Bibasilar subsegmental atelectasis and chronic interstitial lung disease. Atherosclerosis of the aorta but no evidence of aneurysm. Again noted is fat containing periumbilical hernia with mild edema. Remainder of the abdominal pelvic wall unremarkable. Chronic right parasymphyseal and L5 vertebral body fractures. No acute osseous findings. Degenerative changes of the lower thoracic and lumbar spine. Nonaggressive mixed lucent sclerotic lesion involving the medial right ilium. No acute osseous findings are osteoblastic/osteolytic lesions. IMPRESSION: 1. Again noted are dilated loops of small bowel in the left abdomen and central lower abdomen with more normal caliber proximal and distal small bowel consistent with partial closed loop obstruction. 2. Diverticulosis sigmoid colon without CT evidence diverticulitis. No evidence of appendicitis. 3. Evidence of previous abdominal surgery. Status post hysterectomy. 4. Cholelithiasis with an otherwise unremarkable distended gallbladder. No biliary ductal dilation. 5. No evidence of calcified urinary calculi or obstructive uropathy. 6. Hepatic fatty infiltration. RPTAT:AAJJ Physician Harsha Date Time Electronically viewed and signed by Physician Harsha on 03/30/2018 03:53 BM/ CC: KAIN COFFEY MD [id number] Consultation: I discussed the patient with the on-call general surgeon Dr. Spencer at 4 AM, who was made aware of the lab, the treatment, the patient condition and he accepted the consult MEDICAL MAKING DECISION: The patient is a 72-year-old female, presenting with acute partial small bowel obstruction, cholelithiasis. She was treated with morphine 2 mg IV for pain, Zofran for medical IV for nausea, Zosyn IV for acute partial small bowel obstruction The differential diagnoses considered include but are not limited to cholelithia sis, cholecystitis, choledocholithiasis, cholangitis, pancreatitis, hepatitis, gastritis, peptic ulcer disease, gastric ulcer, cystitis, diverticulitis, partial small bowel obstruction. Departure Diagnosis: Primary Impression: Partial small bowel obstruction Additional Impressions: Cholelithiasis Leukopenia Anemia Condition: Stable Comments I discussed the findings with the patient. I discussed the patient with the hospitalist Dr Castle at 4:25 am . who was made aware of the lab, the treatment, the patient condition. The patient is admitted to [facility] Disclaimer: Inadvertent spelling and grammatical errors are likely due to EHR/dictation software use and do not reflect on the overall quality of patient care. Also, please note that the electronic time recorded on this note does not necessarily reflect the actual time of the patient encounter. KAIN COFFEY MD Mar 30, 2018 02:45
[2018-03-30] MEDS ORDERED: ONDANSETRON 4 MG INJ IV STA (02:51)
[2018-03-30] MEDS ORDERED: morphine 2 MG INJ IV STA (02:51)
[2018-03-30] MEDS ORDERED: GLUC100015 PO (04:13)
[2018-03-30] MEDS ORDERED: OMEG-135 PO (04:13)
[2018-03-30] MEDS ORDERED: PIPER-TAZO 3.375 GM IV (PMX) 100 ML IVPB ONE (04:30)
--- NOTE | 2018-03-30 05:09 | HP ---
Date/Time of Note Date/Time of Note DATE: 03/30/18 TIME: 05:03 Assessment/Plan VTE Prophylaxis Pharmacological prophylaxis: heparin Lines/Catheters IV Catheter Type (from Nrsg): Saline Lock Assessment/Plan Hospital Course 72 yo female with h/o cervical cancer s/p hysterectomy with surgical adhesions leading to numerous episodes of SBO. She presents again today with SBO - I have offered NG tube but the patient declines this, she is quite familiar w ith this and does not want one at this time. - IV fluids - Pain control - Dr Spencer consulted H/o cervical cancer Osteoporosis: - Cont bisphosphonate when stable Discharge when bowel function normalized Result Diagram: 03/30/18 0320 03/30/18 0320 Results 24hrs Laboratory Tests Test 03/30/18 03:20 03/30/18 04:00 White Blood Count 4.7 #L Red Blood Count 3.59 L Hemoglobin 11.2 L Hematocrit 33.6 L Mean Corpuscular Volume 93.6 Mean Corpuscular Hemoglobin 31.2 Mean Corpuscular Hemoglobin Concent 33.3 Red Cell Distribution Width 14.4 Platelet Count 268 Mean Platelet Volume 10.0 Immature Granulocytes % 0.200 Neutrophils % 78.9 H Lymphocytes % 14.2 L Monocytes % 5.7 Eosinophils % 0.6 Basophils % 0.4 Nucleated Red Blood Cells % 0.0 Immature Granulocytes # 0.010 Neutrophils # 3.7 Lymphocytes # 0.7 L Monocytes # 0.3 Eosinophils # 0.0 Basophils # 0.0 Nucleated Red Blood Cells # 0.0 Sodium Level 137 Potassium Level 4.2 Chloride Level 100 Carbon Dioxide Level 27 Anion Gap 10 Blood Urea Nitrogen 20 Creatinine 0.51 Est Glomerular Filtrat Rate mL/min > 60 Glucose Level 115 Calcium Level 9.5 Total Bilirubin 0.6 Direct Bilirubin 0.00 Indirect Bilirubin 0.6 Aspartate Amino Transf (AST/SGOT) 30 Alanine Aminotransferase (ALT/SGPT) 13 Alkaline Phosphatase 56 Total Protein 8.0 Albumin 4.3 Globulin 3.70 H Albumin/Globulin Ratio 1.16 Lipase 129 Bedside Urine pH (LAB) 7.0 Bedside Urine Protein (LAB) Negative Bedside Urine Glucose (UA) Negative Bedside Urine Ketones (LAB) 3+ H Bedside Urine Blood Trace-lysed H Bedside Urine Nitrite (LAB) Negative Bedside Urine Leukocyte Esterase (L Negative HPI/ROS Admit Date/Time Admit Date/Time Hx of Present Illness 72 yo female with abdominal pain Patient with h/o cervical carcinoma which was treated with hysterectomy, chemotherapy and radiation therapy in 2009. Her abdominal surgeries have cause adhesions leading to about ten hospitalizations for SBO. She has always been treated conservatively for this. Today she presents with similar symptoms to prior episodes with abdominal pain and distension. Still tolerating PO. Does say she is still passing flatus. However CT in ED shows SBO. She has received IV analgesics and feels better. I have offered NG tube decompression but she declines, having had much experience with NG tubes in the past. PMH/Family/Social Past Medical History SBO Cervical cancer Coded Allergies: No Known Allergies (Verified Allergy, Mild, 03/30/18) Past Surgical History Hysterectomy Past Surgical Hx: appendectomy, other Family History Significant Family History: no pertinent family hx Social History Alcohol Use: none Smoking Status: Never smoker Drug Use: none Exam/Review of Systems Vital Signs Vitals Vital Signs Date Temp Pulse Resp B/P (MAP) Pulse Ox O2 O2 Flow FiO2 Time Delivery Rate 03/30/18 73 13 121/88 97 Room Air 04:03 (99) 03/30/18 99.4 02:26 Exam Exam AOx3 Resting comfortably in NAD RRR CTAB Abdomen tender to palpation, mildly distended. No guarding or rebound MILGROMPAL MD Mar 30, 2018 05:09
[2018-03-30] MEDS: DEXTROSE 5%-0.45% NACL 1,000 ML IV SCH ×2 (05:17→14:58)
[2018-03-30] MEDS ORDERED: NACL 0.9% 3 ML SYG IV SCH (05:30)
[2018-03-30 06:12] VITALS: BP 115/62; PULSE 74; RESP 18
[2018-03-30 08:12] VITALS: BP 112/65; PULSE 70; RESP 18
[2018-03-30 08:49] VITALS: Ht 154.9 cm; Wt 63.3 kg
[2018-03-30] MEDS: ENOXAPARIN 30 MG/0.3 ML SYG SC SCH (09:16)
--- NOTE | 2018-03-30 10:32 | QN ---
Documentation Comment 50-year-old female with history of abdominal surgery, admitted with partial small bowel obstruction. Patient admits passing flatus. She did not have a bowel movement today. Her pain is improved. She is not having any vomiting or nausea at this time. Dr. Spencer has been consulted and advised me to start patient on a clear diet and will see patient later, deferred further imaging. Case discussed with JOSIE Li NP Mar 30, 2018 10:32
[2018-03-30 14:22] VITALS: BP 114/62; PULSE 74; RESP 18
[2018-03-30] MEDS: HYDROmorphONE 0.5 MG/0.5 ML SYG IV PRN (18:59)
[2018-03-30 20:00] VITALS: BP 94/51; PULSE 71; RESP 18
--- NOTE | 2018-03-30 21:09 | CONS ---
Assessment/Plan Assessment/Plan Assessment/Plan (Daily) Small bowel obstruction, persistent Patient failed clear liquid trial today. Will place NG tube CT of abdomen and pelvis with oral contrast tomorrow Consultation Date/Type/Reason Admit Date/Time Date/Time of Note DATE: 03/30/18 TIME: 21:07 Hx of Present Illness The patient is a 72-year-old female with multiple small bowel obstructions in the past. She presented to the ER today with abdominal pain. Had nausea as well. Symptoms were similar to her prior bowel obstructions in the past. She has not had surgery many of the small bowel obstructions. They have all resolved spontaneously. States that she has had 7 abdominal surgeries prior Past Medical History Medical History: other (Recurrent small bowel obstruction) Home Meds Reported Medications [place]-3 Fatty Acids/Fish Oil (Fish Oil 1,000 mg Capsule) 1 Each Capsule, 1 EACH PO DAILY, CAP 03/30/18 Multivitamins* (Theragran*) 1 Tab Tab, 1 TAB PO DAILY, TAB 08/19/17 Discontinued Reported Medications Glucosamine Sulfate 2KCL (GLUCOSAMINE) 1,000 Mg Tablet, 1000 MG PO DAILY, TAB 03/30/18 Alendronate Sodium* (Fosamax*) 70 Mg Tablet, 70 MG PO QFRIDAY, #4 TAB 08/19/17 Docusate Sodium* (Docusate Sodium*) 100 Mg Capsule, 100 MG PO BID, #60 CAP 08/19/17 Medications Current Medications Dextrose/Sodium Chloride 1,000 ml @ 100 mls/hr Q10H IV Last administered on 03/30/18at 14:58; Admin Dose 100 MLS/HR; Start 03/30/18 at 05:09 IV Flush (NS 3 ml) 3 ml PER PROTOCOL IV ; Start 03/30/18 at 05:30 Hydromorphone HCl (Dilaudid) 0.5 mg Q4H PRN IV .SEVERE PAIN 7-10 Last administered on 03/30/18at 18:59; Admin Dose 0.5 MG; Start 03/30/18 at 05:30 Enoxaparin Sodium (Lovenox) 30 mg DAILY SC Last administered on 03/30/18at 09:16; Admin Dose 30 MG; Start 03/30/18 at 09:00 Allergies: Coded Allergies: No Known Allergies (Verified Allergy, Mild, 03/30/18) Past Surgical History Past Surgical Hx: appendectomy, other (Multiple multiple abdominal surgeries) Social History Alcohol Use: none Smoking Status: Never smoker Drug Use: none Exam/Review of Systems Exam Vitals Vital Signs Date Temp Pulse Resp B/P (MAP) Pulse Ox O2 O2 Flow FiO2 Time Delivery Rate 03/30/18 98.3 71 18 94/51 (65) 94 Room Air 20:00 Constitutional: alert, oriented, well developed Psych: no complaints Head: normocephalic Eyes: nl conjunctiva ENMT: nl external ears & nose Neck: supple, non-tender Respiratory: clear to auscultation, normal air movement Cardiovascular: regular rate and rhythm, nl pulses Gastrointestinal: soft, other (, Nondistended, some left upper quadrant tenderness) Musculoskeletal: nl extremities to inspection Extremities: normal pulses 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: CHIP TESTER II-XII intact, nl mental status, nl speech Skin: nl turgor Results Result Diagram: 03/30/18 0320 03/30/18 0320 Results 24hrs Laboratory Tests Test 03/30/18 03:20 03/30/18 04:00 White Blood Count 4.7 #L Red Blood Count 3.59 L Hemoglobin 11.2 L Hematocrit 33.6 L Mean Corpuscular Volume 93.6 Mean Corpuscular Hemoglobin 31.2 Mean Corpuscular Hemoglobin Concent 33.3 Red Cell Distribution Width 14.4 Platelet Count 268 Mean Platelet Volume 10.0 Immature Granulocytes % 0.200 Neutrophils % 78.9 H Lymphocytes % 14.2 L Monocytes % 5.7 Eosinophils % 0.6 Basophils % 0.4 Nucleated Red Blood Cells % 0.0 Immature Granulocytes # 0.010 Neutrophils # 3.7 Lymphocytes # 0.7 L Monocytes # 0.3 Eosinophils # 0.0 Basophils # 0.0 Nucleated Red Blood Cells # 0.0 Sodium Level 137 Potassium Level 4.2 Chloride Level 100 Carbon Dioxide Level 27 Anion Gap 10 Blood Urea Nitrogen 20 Creatinine 0.51 Est Glomerular Filtrat Rate mL/min > 60 Glucose Level 115 Calcium Level 9.5 Total Bilirubin 0.6 Direct Bilirubin 0.00 Indirect Bilirubin 0.6 Aspartate Amino Transf (AST/SGOT) 30 Alanine Aminotransferase (ALT/SGPT) 13 Alkaline Phosphatase 56 Total Protein 8.0 Albumin 4.3 Globulin 3.70 H Albumin/Globulin Ratio 1.16 Lipase 129 Bedside Urine pH (LAB) 7.0 Bedside Urine Protein (LAB) Negative Bedside Urine Glucose (UA) Negative Bedside Urine Ketones (LAB) 3+ H Bedside Urine Blood Trace-lysed H Bedside Urine Nitrite (LAB) Negative Bedside Urine Leukocyte Esterase (L Negative Imaging Imaging Patient: LINWOOD BRENNER : 1945 Age: 72 Sex: F MR #: [id number] DOS: 03/30/18 0251 Ordering MD: KAIN COFFEY MD Location: E/R Room/Bed: PROCEDURE: CT Abdomen and pelvis without contrast. CLINICAL INDICATION: Abdominal pain TECHNIQUE: CT scan of the abdomen and pelvis without contrast was performed on a multidetector high-resolution CT scan. . Coronal and sagittal reformatted images were obtained from the axial source images. Standard CT scan of the abdomen pelvis without contrast protocols were performed. The total exam CTDI equals 7.3 mGy and the total exam DLP equals 429.79 mGy-cm. One or more of the following dose reduction techniques were used: - Automated exposure control. - Adjustment of the mA and/or kV according to patient size. Use of iterative reconstruction technique. Dicom images are available COMPARISON: CT abdomen pelvis 10/15/2017 FINDINGS: Again noted is previous abdominal surgery with surgical clips right abdomen and right and left lower quadrants of the abdomen and along the retroperitoneum. Again noted are dilated loops of small bowel in the left abdomen and central lower abdomen with the more normal-caliber proximal small bowel and distal small bowel consistent with partial closed loop obstruction. Stomach unremarkable. Diverticular changes of the sigmoid colon but no CT evidence of diverticulitis. Remainder the colon is unremarkable. No evidence of appendicitis. No evidence of intra-abdominal free air, free fluid, abscesses or lymphadenopathy. Kidneys are normal in size without intra renal masses or calculi bilaterally. Mild prominent renal pelves but no definite hydronephrosis bilaterally. Prominent proximal left ureter. Ureters are otherwise unremarkable. Partially contracted otherwise unremarkable urinary bladder. Status post previous hysterectomy. No adnexal masses. Hepatic fatty infiltration with small focal fatty sparing subcapsular right lobe of the liver adjacent to the ligamentum teres. No evidence of hepatic masses. Spleen pancreas and adrenal glands unremarkable. Cholelithiasis with an otherwise unremarkable distended gallbladder. No evidence biliary ductal dilation. Bibasilar subsegmental atelectasis and chronic interstitial lung disease. Atherosclerosis of the aorta but no evidence of aneurysm. Again noted is fat containing periumbilical hernia with mild edema. Remainder of the abdominal pelvic wall unremarkable. Chronic right parasymphyseal and L5 vertebral body fractures. No acute osseous findings. Degenerative changes of the lower thoracic and lumbar spine. Nonaggressive mixed lucent sclerotic lesion involving the medial right ilium. No acute osseous findings are osteoblastic/osteolytic lesions. IMPRESSION: 1. Again noted are dilated loops of small bowel in the left abdomen and central lower abdomen with more normal caliber proximal and distal small bowel consistent with partial closed loop obstruction. 2. Diverticulosis sigmoid colon without CT evidence diverticulitis. No evidence of appendicitis. 3. Evidence of previous abdominal surgery. Status post hysterectomy. 4. Cholelithiasis with an otherwise unremarkable distended gallbladder. No biliary ductal dilation. 5. No evidence of calcified urinary calculi or obstructive uropathy. 6. Hepatic fatty infiltration. RPTAT:AAJJ Physician Harsha Date Time Electronically viewed and signed by Physician Harsha on 03/30/2018 03:53 BM/ Medications Medication Current Medications Dextrose/Sodium Chloride 1,000 ml @ 100 mls/hr Q10H IV Last administered on 03/30/18at 14:58; Admin Dose 100 MLS/HR; Start 03/30/18 at 05:09 IV Flush (NS 3 ml) 3 ml PER PROTOCOL IV ; Start 03/30/18 at 05:30 Hydromorphone HCl (Dilaudid) 0.5 mg Q4H PRN IV .SEVERE PAIN 7-10 Last administered on 03/30/18at 18:59; Admin Dose 0.5 MG; Start 03/30/18 at 05:30 Enoxaparin Sodium (Lovenox) 30 mg DAILY SC Last administered on 03/30/18at 09:16; Admin Dose 30 MG; Start 03/30/18 at 09:00 ALMA ESCOBAR MD Mar 30, 2018 21:09
[2018-03-31 02:00] VITALS: BP 102/50; PULSE 65; RESP 18
[2018-03-31] MEDS: DEXTROSE 5%-0.45% NACL 1,000 ML IV SCH ×2 (02:51→13:43)
[2018-03-31] MEDS: HYDROmorphONE 0.5 MG/0.5 ML SYG IV PRN ×2 (02:55→12:15)
[2018-03-31] MEDS: IOHEXOL 14.3 MG(I)/ML (ADULT) BTL PO ONE ×2 (03:42→10:29)
[2018-03-31 08:13] VITALS: BP 113/71; PULSE 69; RESP 18
[2018-03-31] MEDS: ENOXAPARIN 30 MG/0.3 ML SYG SC SCH (08:41)
--- NOTE | 2018-03-31 11:16 | PN ---
Date/Time of Note Date/Time of Note DATE: 03/31/18 TIME: 11:15 Assessment/Plan VTE Prophylaxis Risk score (from Ns)>0 risk: 1 SCD applied (from Ns): Yes Pharmacological prophylaxis: NA/contraindicated Pharm contraindication: low risk/ambulating Lines/Catheters IV C[facility] Type [facility]from [facility]): Peripheral IV Assessment/Plan Hospital Course SUBJECTIVE: Patient was unable to tolerate a clear diet yesterday secondary to abdominal pain. Today she is with NG tube and is getting a repeat CT with contrast. However, patient had bowel movement and she also feels passing flatus. OBJECTIVE: Vital signs-see below PHYSICAL EXAM: Constitutional: Well-developed, adequately built, lying in bed comfortably. Psych: nl mood/affect, no complaints Head: atraumatic, normocephalic Eyes: nl conjunctiva, nl sclera ENMT: mucosa pink and moist, nl external ears & nose Neck: non-tender, supple Respiratory: clear to auscultation, normal air movement Cardiovascular: nl pulses, regular rate and rhythm Gastrointestinal: +Tender, no rebound tenderness, bowel sounds active in all 4 quadrants. Musculoskeletal/extremities: nl extremities to inspection, motor strength equal bilaterally, no focal deficit. Normal pulses,no cyanosis, no edema. 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: Alert oriented 3,nl speech, nl strength Skin: nl turgor ASSESSMENT/PLAN: 72-year-old female with a history of multiple abdominal surg eries in the past, recurrent small bowel obstructions, here with abdominal pain, found to have partial small bowel obstruction. 1. Partial small bowel obstruction, recurrent. -Patient failed diet, s/p surgery evaluation -on NG tube decompression=> not much drainage -Follow-up imaging studies and follow-up surgery recommendations. 2. Anemia, likely chronic. -Stable H&H. No overt bleeding. Continue to monitor. DVT prophylaxis: SCDs PUD prophylaxis: Protonix CODE STATUS: Full code Diet: N.p.o., until cleared by surgery Disposition: Continue current management and follow-up surgery recommendations. Patient was seen in collaboration with . Result Diagram: 03/31/18 0542 03/31/18 0542 Results 24hrs Laboratory Tests Test 03/31/18 05:42 White Blood Count 3.8 L Red Blood Count 3.26 L Hemoglobin 10.1 L Hematocrit 30.6 L Mean Corpuscular Volume 93.9 Mean Corpuscular Hemoglobin 31.0 Mean Corpuscular Hemoglobin Concent 33.0 Red Cell Distribution Width 14.2 Platelet Count 234 Mean Platelet Volume 9.9 Immature Granulocytes % 0.300 Neutrophils % 69.5 Lymphocytes % 20.1 Monocytes % 8.7 Eosinophils % 1.1 Basophils % 0.3 Nucleated Red Blood Cells % 0.0 Immature Granulocytes # 0.010 Neutrophils # 2.6 Lymphocytes # 0.8 Monocytes # 0.3 Eosinophils # 0.0 Basophils # 0.0 Nucleated Red Blood Cells # 0.0 Sodium Level 135 Potassium Level 3.5 Chloride Level 103 Carbon Dioxide Level 27 Anion Gap 5 Blood Urea Nitrogen 9 # Creatinine 0.56 Est Glomerular Filtrat Rate mL/min > 60 Glucose Level 119 Hemoglobin A1c 5.5 Calcium Level 8.7 Total Bilirubin 0.6 Direct Bilirubin 0.00 Indirect Bilirubin 0.6 Aspartate Amino Transf (AST/SGOT) 21 Alanine Aminotransferase (ALT/SGPT) 14 Alkaline Phosphatase 46 Total Protein 6.6 # Albumin 3.5 Globulin 3.10 Albumin/Globulin Ratio 1.12 Exam/Review of Systems Exam Vitals Vital Signs Date Temp Pulse Resp B/P (MAP) Pulse Ox O2 O2 Flow FiO2 Time Delivery Rate 03/31/18 98.2 69 18 113/71 98 Room Air 08:13 (85) Intake and Output 03/30/18 03/30/18 03/31/18 1515:00 23:00 07:00 IntakeIntake Total 1000 ml 200 ml 800 ml OutputOutput Total 300 ml 0 ml BalanceBalance 700 ml 200 ml 800 ml Results Results 24hrs Laboratory Tests Test 03/31/18 05:42 White Blood Count 3.8 L Red Blood Count 3.26 L Hemoglobin 10.1 L Hematocrit 30.6 L Mean Corpuscular Volume 93.9 Mean Corpuscular Hemoglobin 31.0 Mean Corpuscular Hemoglobin Concent 33.0 Red Cell Distribution Width 14.2 Platelet Count 234 Mean Platelet Volume 9.9 Immature Granulocytes % 0.300 Neutrophils % 69.5 Lymphocytes % 20.1 Monocytes % 8.7 Eosinophils % 1.1 Basophils % 0.3 Nucleated Red Blood Cells % 0.0 Immature Granulocytes # 0.010 Neutrophils # 2.6 Lymphocytes # 0.8 Monocytes # 0.3 Eosinophils # 0.0 Basophils # 0.0 Nucleated Red Blood Cells # 0.0 Sodium Level 135 Potassium Level 3.5 Chloride Level 103 Carbon Dioxide Level 27 Anion Gap 5 Blood Urea Nitrogen 9 # Creatinine 0.56 Est Glomerular Filtrat Rate mL/min > 60 Glucose Level 119 Hemoglobin A1c 5.5 Calcium Level 8.7 Total Bilirubin 0.6 Direct Bilirubin 0.00 Indirect Bilirubin 0.6 Aspartate Amino Transf (AST/SGOT) 21 Alanine Aminotransferase (ALT/SGPT) 14 Alkaline Phosphatase 46 Total Protein 6.6 # Albumin 3.5 Globulin 3.10 Albumin/Globulin Ratio 1.12 Medications Medication Current Medications Dextrose/Sodium Chloride 1,000 ml @ 100 mls/hr Q10H IV Last administered on 03/31/18at 02:51; Admin Dose 100 MLS/HR; Start 03/30/18 at 05:09 IV Flush (NS 3 ml) 3 ml PER PROTOCOL IV ; Start 03/30/18 at 05:30 Hydromorphone HCl (Dilaudid) 0.5 mg Q4H PRN IV .SEVERE PAIN 7-10 Last administered on 03/31/18at 02:55; Admin Dose 0.5 MG; Start 03/30/18 at 05:30 Enoxaparin Sodium (Lovenox) 30 mg DAILY SC Last administered on 03/31/18at 08:41; Admin Dose 30 MG; Start 03/30/18 at 09:00 JOSIE WAGNER NP Mar 31, 2018 11:16
[2018-03-31] MEDS: ONDANSETRON 4 MG INJ IV PRN ×2 (12:09→21:44)
[2018-03-31 14:24] VITALS: BP 103/60; PULSE 72; RESP 18
--- NOTE | 2018-03-31 16:34 | PN ---
Date/Time of Note Date/Time of Note DATE: 03/31/18 TIME: 16:32 Assessment/Plan Lines/Catheters IV [facility] (from [facility]): Peripheral IV Assessment/Plan Assessment/Plan Hospital day #[address] for small bowel obstruction CT -shows fecalization of small bowel without contrast into the cecum CT is very similar to prior admissions Abdominal series 4 AM. May need surgery on this admission if SBO persists. She has had multiple admissions for small bowel obstruction. All of been treated conservatively due to the fact that she has had 7 prior abdominal surgeries. I would hope that this resolved without surgery but I am going more concerned each day that resolution is unlikely based on her clinical findings and CT Subjective 24 Hr Interval Summary Constitutional: other (Complaining of abdominal pain. Had bowel movement yesterday but denies flatus or bowel movement today. minimal NG tube output overnight ) Exam/Review of Systems Vital Signs Vitals Vital Signs Date Temp Pulse Resp B/P (MAP) Pulse Ox O2 O2 Flow FiO2 Time Delivery Rate 03/31/18 97.8 72 18 103/60 95 Room Air 14:24 (74) Intake and Output 03/30/18 03/30/18 03/31/18 1515:00 23:00 07:00 IntakeIntake Total 1000 ml 200 ml 800 ml OutputOutput Total 300 ml 0 ml BalanceBalance 700 ml 200 ml 800 ml Exam Constitutional: alert, oriented, well developed Neck: supple Respiratory: clear to auscultation Gastrointestinal: soft, non-tender Results Result Diagram: 03/31/18 0542 03/31/18 0542 ALMA ESCOBAR MD Mar 31, 2018 16:34
[2018-03-31 20:00] VITALS: BP 92/55; PULSE 75; RESP 18
[2018-04-01] MEDS: DEXTROSE 5%-0.45% NACL 1,000 ML IV SCH ×3 (00:15→17:09)
[2018-04-01 02:00] VITALS: BP 106/47; PULSE 80; RESP 18
[2018-04-01 08:11] VITALS: BP 104/58; PULSE 79; RESP 16
[2018-04-01] MEDS ORDERED: POTASSIUM CHLORIDE 100 ML IVPB ONE (12:00)
--- NOTE | 2018-04-01 12:19 | PN ---
Date/Time of Note Date/Time of Note DATE: 04/01/18 TIME: 12:16 Assessment/Plan VTE Prophylaxis Risk score (from Nsg)>0 risk: 1 SCD applied (from Ns): Yes Pharmacological prophylaxis: NA/contraindicated Pharm contraindication: low risk/ambulating Lines/Catheters IV Catheter Type (from Nrsg): Peripheral IV Assessment/Plan Hospital Course SUBJECTIVE: Patient continues to have abdominal pain. She was not able to tolerate diet. NG tube draining minimal. OBJECTIVE: Vital signs-see below PHYSICAL EXAM: Constitutional: Well-developed, adequately built, lying in bed comfortably. Psych: nl mood/affect, no complaints Head: atraumatic, normocephalic Eyes: nl conjunctiva, nl sclera ENMT: mucosa pink and moist, nl external ears & nose Neck: non-tender, supple Respiratory: clear to auscultation, normal air movement Cardiovascular: nl pulses, regular rate and rhythm Gastrointestinal: +Tender, no rebound tenderness, bowel sounds active in all 4 quadrants. Musculoskeletal/extremities: nl extremities to inspection, motor strength equal bilaterally, no focal deficit. Normal pulses,no cyanosis, no edema. 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: Alert oriented 3,nl speech, nl strength Skin: nl turgor ASSESSMENT/PLAN: 72-year-old female with a history of multiple abdominal surgeries in the past, recurrent small bowel obstructions, here with abdominal pain, found to have partial small bowel obstruction. 1. Partial small bowel obstruction, recurrent. -Symptoms improved, however multiple repeat imaging showed persistent obstruction..If her symptoms does not get improved over the next 24-48 hours, she would likely need surgical intervention per surgery... -Continue n.p.o. status, NG tube decompression, pain control -Follow-up abdominal series ordered. -f/u Surgical recommendations 2. Anemia, likely chronic. -Stable H&H. No overt bleeding. Continue to monitor. DVT prophylaxis: SCDs PUD prophylaxis: Protonix CODE STATUS: Full code Diet: N.p.o., until cleared by surgery Disposition: Continue current management and follow-up surgery recommendations. Patient was seen in collaboration with Result Diagram: 04/01/18 0532 04/01/18 0532 Results 24hrs Laboratory Tests Test 04/01/18 05:32 White Blood Count 3.5 L Red Blood Count 3.24 L Hemoglobin 10.0 L Hematocrit 30.7 L Mean Corpuscular Volume 94.8 Mean Corpuscular Hemoglobin 30.9 Mean Corpuscular Hemoglobin Concent 32.6 Red Cell Distribution Width 14.0 Platelet Count 234 Mean Platelet Volume 9.7 Immature Granulocytes % 0.300 Neutrophils % 67.8 Lymphocytes % 22.0 Monocytes % 8.5 Eosinophils % 1.1 Basophils % 0.3 Nucleated Red Blood Cells % 0.0 Immature Granulocytes # 0.010 Neutrophils # 2.4 Lymphocytes # 0.8 Monocytes # 0.3 Eosinophils # 0.0 Basophils # 0.0 Nucleated Red Blood Cells # 0.0 Sodium Level 140 Potassium Level 3.4 L Chloride Level 108 Carbon Dioxide Level 25 Anion Gap 7 Blood Urea Nitrogen 5 L Creatinine 0.50 Est Glomerular Filtrat Rate mL/min > 60 Glucose Level 112 Calcium Level 8.8 Magnesium Level 1.9 Exam/Review of Systems Exam Vitals Vital Signs Date Temp Pulse Resp B/P (MAP) Pulse Ox O2 O2 Flow FiO2 Time Delivery Rate 04/01/18 98.4 79 16 104/58 97 08:11 (73) 04/01/18 Room Air 02:00 Intake and Output 03/31/18 03/31/18 04/01/18 1515:00 23:00 07:00 IntakeIntake Total 1000 ml 500 ml 1000 ml OutputOutput Total 400 ml 100 ml BalanceBalance 1000 ml 100 ml 900 ml Results Results 24hrs Laboratory Tests Test 04/01/18 05:32 White Blood Count 3.5 L Red Blood Count 3.24 L Hemoglobin 10.0 L Hematocrit 30.7 L Mean Corpuscular Volume 94.8 Mean Corpuscular Hemoglobin 30.9 Mean Corpuscular Hemoglobin Concent 32.6 Red Cell Distribution Width 14.0 Platelet Count 234 Mean Platelet Volume 9.7 Immature Granulocytes % 0.300 Neutrophils % 67.8 Lymphocytes % 22.0 Monocytes % 8.5 Eosinophils % 1.1 Basophils % 0.3 Nucleated Red Blood Cells % 0.0 Immature Granulocytes # 0.010 Neutrophils # 2.4 Lymphocytes # 0.8 Monocytes # 0.3 Eosinophils # 0.0 Basophils # 0.0 Nucleated Red Blood Cells # 0.0 Sodium Level 140 Potassium Level 3.4 L Chloride Level 108 Carbon Dioxide Level 25 Anion Gap 7 Blood Urea Nitrogen 5 L Creatinine 0.50 Est Glomerular Filtrat Rate mL/min > 60 Glucose Level 112 Calcium Level 8.8 Magnesium Level 1.9 Medications Medication Current Medications Dextrose/Sodium Chloride 1,000 ml @ 100 mls/hr Q10H IV Last administered on 04/01/18at 10:19; Admin Dose 100 MLS/HR; Start 03/30/18 at 05:09 IV Flush (NS 3 ml) 3 ml PER PROTOCOL IV ; Start 03/30/18 at 05:30 Hydromorphone HCl (Dilaudid) 0.5 mg Q4H PRN IV .SEVERE PAIN 7-10 Last administered on 03/31/18at 12:15; Admin Dose 0.5 MG; Start 03/30/18 at 05:30 Ondansetron HCl (Zofran Inj) 4 mg Q6H PRN IV NAUSEA AND/OR VOMITING Last administered on 03/31/18at 21:44; Admin Dose 4 MG; Start 03/31/18 at 11:30 Potassium Chloride 100 ml @ 50 mls/hr ONCE ONCE IVPB ; Start 04/01/18 at 12:00; Stop 04/01/18 at 13:59 JOSIE WAGNER NP Apr 01, 2018 12:19
--- NOTE | 2018-04-01 12:57 | PN ---
Date/Time of Note Date/Time of Note DATE: 04/01/18 TIME: 12:56 Assessment/Plan Lines/Catheters IV Catheter Type (from Nrsg): Peripheral IV Assessment/Plan Assessment/Plan Hospital day #3 for small bowel obstruction Resolving. Patient has less pain and tenderness today. Flatus overnight. Minimal NG tube output. Nominal series for today. Subjective 24 Hr Interval Summary Constitutional: improved, ambulates, flatus Feeding: NPO Pain Control: well controlled Exam/Review of Systems Vital Signs Vitals Vital Signs Date Temp Pulse Resp B/P (MAP) Pulse Ox O2 O2 Flow FiO2 Time Delivery Rate 04/01/18 98.4 79 16 104/58 97 08:11 (73) 04/01/18 Room Air 02:00 Intake and Output 03/31/18 03/31/18 04/01/18 1515:00 23:00 07:00 IntakeIntake Total 1000 ml 500 ml 1000 ml OutputOutput Total 400 ml 100 ml BalanceBalance 1000 ml 100 ml 900 ml Exam Constitutional: alert, oriented, well developed Psych: no complaints Neck: supple Respiratory: clear to auscultation Cardiovascular: regular rate and rhythm Gastrointestinal: soft, non-tender Results Result Diagram: 04/01/18 0532 04/01/18 0532 ALMA ESCOBAR MD Apr 01, 2018 12:57
[2018-04-01 20:00] VITALS: BP 105/64; PULSE 84; RESP 18
[2018-04-01] MEDS: HYDROmorphONE 0.5 MG/0.5 ML SYG IV PRN (20:26)
[2018-04-02] MEDS: DEXTROSE 5%-0.45% NACL 1,000 ML IV SCH ×2 (02:13→12:59)
[2018-04-02 02:34] VITALS: BP 100/51; PULSE 71; RESP 20
[2018-04-02 08:07] VITALS: BP 95/52; PULSE 78; RESP 16
--- NOTE | 2018-04-02 09:06 | PN ---
Date/Time of Note Date/Time of Note DATE: 04/02/18 TIME: 09:05 Assessment/Plan Lines/Catheters IV Catheter Type (from Nrsg): Peripheral IV Assessment/Plan Assessment/Plan Resolving small bowel obstruction. Multiple episodes of flatus yesterday and today. DC NG tube today and start clears. Possible discharge today or tomorrow depending on clinical status Subjective 24 Hr Interval Summary Constitutional: no complaints, improved, flatus Feeding: advancing diet Pain Control: well controlled Additional Comments Patient states that her abdomen feels much much much better. Exam/Review of Systems Vital Signs Vitals Vital Signs Date Temp Pulse Resp B/P (MAP) Pulse Ox O2 O2 Flow FiO2 Time Delivery Rate 04/02/18 98.0 78 16 95/52 (66) 99 08:07 04/02/18 Room Air 02:34 Intake and Output 04/01/18 04/01/18 04/02/18 1515:00 23:00 07:00 IntakeIntake Total 500 ml 600 ml 500 ml OutputOutput Total 200 ml BalanceBalance 500 ml 600 ml 300 ml Exam Constitutional: alert, oriented, well developed Respiratory: clear to auscultation Cardiovascular: regular rate and rhythm Gastrointestinal: soft, non-tender Results Result Diagram: 04/02/18 0526 04/02/18 0526 ALMA ESCOBAR MD Apr 02, 2018 09:06
--- NOTE | 2018-04-02 09:10 | PN ---
Date/Time of Note Date/Time of Note DATE: 04/02/18 TIME: 09:07 Assessment/Plan VTE Prophylaxis Risk score (from Ns)>0 risk: 3 SCD applied (from Ns): Yes Pharmacological prophylaxis: NA/contraindicated Pharm contraindication: low risk/ambulating Lines/Catheters [facility] ([facility] Peripheral IV Assessment/Plan Hospital Course SUBJECTIVE: Patient with no abdominal pain. She has been passing flatus. No bowel movement today. Patient now complains of bilateral heel pain more on right, get worse when she walks. OBJECTIVE: Vital signs-see below PHYSICAL EXAM: Constitutional: Well-developed, adequately built, lying in bed comfortably. Psych: nl mood/affect, no complaints Head: atraumatic, normocephalic Eyes: nl conjunctiva, nl sclera ENMT: mucosa pink and moist, nl external ears & nose Neck: non-tender, supple Respiratory: clear to auscultation, normal air movement Cardiovascular: nl pulses, regular rate and rhythm Gastrointestinal: Soft, nontender, no rebound tenderness, bowel sounds active in all 4 quadrants. Musculoskeletal/extremities: +Tenderness heel R>L, nl extremities to inspection, motor strength equal bilaterally, no focal deficit. Normal pulses,no cyanosis, no edema. 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: Alert oriented 3,nl speech, nl strength Skin: nl turgor ASSESSMENT/PLAN: 72-year-old female with a history of multiple abdominal surgeries in the past, recurrent small bowel obstructions, here with abdominal pain, found to have partial small bowel obstruction. 1. Partial small bowel obstruction, recurrent. -Resolving. Bowel series with no evidence of obstruction. Surgery managing and plan is to DC NG tube and start on a clear diet and observe for another 24 hours. 2. Bilateral heel pain,R>L, worse with walking, likely plantar fasciitis -We will try some NSAIDs and will consider podiatry evaluation. -Obtain a uric acid level to rule out gout. -Obtain ultrasound to rule out DVT 3. Anemia, likely chronic. -Stable H&H. No overt bleeding. Continue to monitor. DVT prophylaxis: SCDs PUD prophylaxis: Protonix CODE STATUS: Full code Diet: Clear diet, advance per surgery Disposition: Continue current management . Await for clinical improvement Patient was seen in collaboration with Result Diagram: 04/02/1852504/02/18525 Results 24hrs Laboratory Tests Test 2/24/19 05:26 White Blood Count 4.7 #L Red Blood Count 3.12 L Hemoglobin 9.8 L Hematocrit 29.0 L Mean Corpuscular Volume 92.9 Mean Corpuscular Hemoglobin 31.4 Mean Corpuscular Hemoglobin Concent 33.8 Red Cell Distribution Width 14.3 Platelet Count 240 Mean Platelet Volume 9.2 Immature Granulocytes % 0.400 Neutrophils % 71.3 Lymphocytes % 17.1 Monocytes % 9.3 Eosinophils % 1.5 Basophils % 0.4 Nucleated Red Blood Cells % 0.0 Immature Granulocytes # 0.020 Neutrophils # 3.4 Lymphocytes # 0.8 Monocytes # 0.4 Eosinophils # 0.1 Basophils # 0.0 Nucleated Red Blood Cells # 0.0 Sodium Level 135 Potassium Level 3.7 Chloride Level 103 Carbon Dioxide Level 27 Anion Gap 5 Blood Urea Nitrogen 8 Creatinine 0.51 Est Glomerular Filtrat Rate mL/min > 60 Glucose Level 117 Calcium Level 8.6 Exam/Review of Systems Exam Vitals Vital Signs Date Temp Pulse Resp B/P (MAP) Pulse Ox O2 O2 Flow FiO2 Time Delivery Rate 04/02/18 98.0 78 16 95/52 (66) 99 08:07 04/02/18 Room Air 02:34 Intake and Output 04/01/18 04/01/18 04/02/18 1515:00 23:00 07:00 IntakeIntake Total 500 ml 600 ml 500 ml OutputOutput Total 200 ml BalanceBalance 500 ml 600 ml 300 ml Results Results 24hrs Laboratory Tests Test 04/02/18 05:26 White Blood Count 4.7 #L Red Blood Count 3.12 L Hemoglobin 9.8 L Hematocrit 29.0 L Mean Corpuscular Volume 92.9 Mean Corpuscular Hemoglobin 31.4 Mean Corpuscular Hemoglobin Concent 33.8 Red Cell Distribution Width 14.3 Platelet Count 240 Mean Platelet Volume 9.2 Immature Granulocytes % 0.400 Neutrophils % 71.3 Lymphocytes % 17.1 Monocytes % 9.3 Eosinophils % 1.5 Basophils % 0.4 Nucleated Red Blood Cells % 0.0 Immature Granulocytes # 0.020 Neutrophils # 3.4 Lymphocytes # 0.8 Monocytes # 0.4 Eosinophils # 0.1 Basophils # 0.0 Nucleated Red Blood Cells # 0.0 Sodium Level 135 Potassium Level 3.7 Chloride Level 103 Carbon Dioxide Level 27 Anion Gap 5 Blood Urea Nitrogen 8 Creatinine 0.51 Est Glomerular Filtrat Rate mL/min > 60 Glucose Level 117 Calcium Level 8.6 Medications Medication Current Medications Dextrose/Sodium Chloride 1,000 ml @ 100 mls/hr Q10H IV Last administered on 04/02/18at 02:13; Admin Dose 100 MLS/HR; Start 03/30/18 at 05:09 IV Flush (NS 3 ml) 3 ml PER PROTOCOL IV ; Start 03/30/18 at 05:30 Hydromorphone HCl (Dilaudid) 0.5 mg Q4H PRN IV .SEVERE PAIN 7-10 Last administered on 04/01/18at 20:26; Admin Dose 0.5 MG; Start 03/30/18 at 05:30 Ondansetron HCl (Zofran Inj) 4 mg Q6H PRN IV NAUSEA AND/OR VOMITING Last administered on 03/31/18at 21:44; Admin Dose 4 MG; Start 03/31/18 at 11:30 JOSIE WAGNER NP Apr 02, 2018 09:10
[2018-04-02] MEDS: IBUPROFEN 400 MG TAB PO SCH ×3 (11:30→18:08)
[2018-04-02 14:38] VITALS: BP 92/55; PULSE 81; RESP 16
[2018-04-02 20:00] VITALS: BP 120/67; PULSE 84; RESP 18
--- NOTE | 2018-04-02 20:49 | CONS ---
Assessment/Plan Assessment/Plan Assessment/Plan (Daily) Right foot edema Pain in right lower extremity Peroneal tendinosis Posterior tibialis tendinosis Plantar fasciitis Plan Discussed stretching exercises to assist with plantar fasciitis. Continue with motrin and elevation assist with pain. X-rays and MRI ordered of the right foot/ankle to rule out stress fracture or any soft tissue injury. Patient may weight bear as tolerated. Rest per primary team. Patient may follow up in [facility] outpatient clinic. Consultation Date/Type/Reason Admit Date/Time Date/Time of Note DATE: 04/02/18 TIME: 20:49 Hx of Present Illness 72 y/o F patient who was admitted for small bowel obstruction, presents to the floor with right foot and ankle pain. Patient states the pain started couple days ago. She denies any recent trauma or inciting event. Patient states she was able to walk in the hospital during this admission, but now all of sudden noticed pain and is unable to walk on it. Patient states it's a sharp aching pain. Rates 8/10 and does not radiate proximally up the leg. ROS negative except for HPI Past Medical History SBO Cervical cancer Medical History: other (Recurrent small bowel obstruction) Home Meds Reported Medications [place]-3 Fatty Acids/Fish Oil (Fish Oil 1,000 mg Capsule) 1 Each Capsule, 1 EACH PO DAILY, CAP 03/30/18 Multivitamins* (Theragran*) 1 Tab Tab, 1 TAB PO DAILY, TAB 08/19/17 Discontinued Reported Medications Glucosamine Sulfate 2KCL (GLUCOSAMINE) 1,000 Mg Tablet, 1000 MG PO DAILY, TAB 03/30/18 Alendronate Sodium* (Fosamax*) 70 Mg Tablet, 70 MG PO QFRIDAY, #4 TAB 08/19/17 Docusate Sodium* (Docusate Sodium*) 100 Mg Capsule, 100 MG PO BID, #60 CAP 08/19/17 Medications Current Medications Dextrose/Sodium Chloride 1,000 ml @ 100 mls/hr Q10H IV Last administered on 04/02/18at 12:59; Admin Dose 100 MLS/HR; Start 03/30/18 at 05:09 IV Flush (NS 3 ml) 3 ml PER PROTOCOL IV ; Start 03/30/18 at 05:30 Hydromorphone HCl (Dilaudid) 0.5 mg Q4H PRN IV .SEVERE PAIN 7-10 Last administered on 04/01/18at 20:26; Admin Dose 0.5 MG; Start 03/30/18 at 05:30 Ondansetron HCl (Zofran Inj) 4 mg Q6H PRN IV NAUSEA AND/OR VOMITING Last administered on 03/31/18at 21:44; Admin Dose 4 MG; Start 03/31/18 at 11:30 Ibuprofen (Motrin) 400 mg Q6 PO Last administered on 04/02/18at 17:23; Admin Dose 400 MG; Start 04/02/18 at 12:00 Allergies: Coded Allergies: No Known Allergies (Verified Allergy, Mild, 03/30/18) Past Surgical History Past Surgical Hx: appendectomy, other (Multiple multiple abdominal surgeries) Social History Alcohol Use: none Smoking Status: Never smoker Drug Use: none Exam/Review of Systems Exam Vitals Vital Signs Date Temp Pulse Resp B/P (MAP) Pulse Ox O2 O2 Flow FiO2 Time Delivery Rate 04/02/18 98.7 81 16 92/55 (67) 99 14:38 04/02/18 Room Air 02:34 Intake and Output 04/01/18 04/01/18 04/02/18 1515:00 23:00 07:00 IntakeIntake Total 500 ml 600 ml 500 ml OutputOutput Total 200 ml BalanceBalance 500 ml 600 ml 300 ml Exam DP/PT pulses palpable protective sensations intact Pain with plantar fascia medial band and along the medial tubercle of calcaneus. Pain along the midsubstance and distal aspect of the medial band of plantar fascia Pain at the 5th metatarsal base and along the peroneal tendon Pain at the insertion of the posterior tibialis tendon No pain with dorsiflexion or plantarflexion Pain with eversion and inversion No pain to ATFL, negative anterior drawer sign Muscle strength 5/5 in all compartments of the foot Non-pitting edema appreciated to right foot and ankle region. Results Result Diagram: 04/02/1826 04/02/1826 Results 24hrs Laboratory Tests Test 04/02/18 05:26 White Blood Count 4.7 #L Red Blood Count 3.12 L Hemoglobin 9.8 L Hematocrit 29.0 L Mean Corpuscular Volume 92.9 Mean Corpuscular Hemoglobin 31.4 Mean Corpuscular Hemoglobin Concent 33.8 Red Cell Distribution Width 14.3 Platelet Count 240 Mean Platelet Volume 9.2 Immature Granulocytes % 0.400 Neutrophils % 71.3 Lymphocytes % 17.1 Monocytes % 9.3 Eosinophils % 1.5 Basophils % 0.4 Nucleated Red Blood Cells % 0.0 Immature Granulocytes # 0.020 Neutrophils # 3.4 Lymphocytes # 0.8 Monocytes # 0.4 Eosinophils # 0.1 Basophils # 0.0 Nucleated Red Blood Cells # 0.0 Sodium Level 135 Potassium Level 3.7 Chloride Level 103 Carbon Dioxide Level 27 Anion Gap 5 Blood Urea Nitrogen 8 Creatinine 0.51 Est Glomerular Filtrat Rate mL/min > 60 Glucose Level 117 Calcium Level 8.6 Medications Medication Current Medications Dextrose/Sodium Chloride 1,000 ml @ 100 mls/hr Q10H IV Last administered on 04/02/18 12:59; Admin Dose 100 MLS/HR; Start 03/30/18 at 05:09 IV Flush (NS 3 ml) 3 ml PER PROTOCOL IV ; Start 03/30/18 at 05:30 Hydromorphone HCl (Dilaudid) 0.5 mg Q4H PRN IV .SEVERE PAIN 7-10 Last administered on 04/01/18 20:26; Admin Dose 0.5 MG; Start 03/30/18 at 05:30 Ondansetron HCl (Zofran Inj) 4 mg Q6H PRN IV NAUSEA AND/OR VOMITING Last administered on 03/31/18 21:44; Admin Dose 4 MG; Start 03/31/18 at 11:30 Ibuprofen (Motrin) 400 mg Q6 PO Last administered on 04/02/18 17:23; Admin Dose 400 MG; Start 04/02/18 at 12:00 ABBY MACHADO DPM Apr 02, 2018 20:49
[2018-04-03] MEDS: IBUPROFEN 400 MG TAB PO SCH ×5 (00:38→23:49)
[2018-04-03] MEDS: DEXTROSE 5%-0.45% NACL 1,000 ML IV SCH ×4 (00:40→23:01)
[2018-04-03 02:00] VITALS: BP 100/52; PULSE 72; RESP 18
[2018-04-03 08:32] VITALS: BP 101/62; PULSE 68; RESP 18
--- NOTE | 2018-04-03 11:39 | PN ---
Date/Time of Note Date/Time of Note DATE: 04/03/18 TIME: 11:38 Assessment/Plan VTE Prophylaxis Risk score (from Ns)>0 risk: 3 SCD applied (from Ns): Yes Pharmacological prophylaxis: NA/contraindicated Pharm contraindication: low risk/ambulating Lines/Catheters [facility] (from [facility] Peripheral IV Assessment/Plan Hospital Course SUBJECTIVE: Patient with no abdominal pain. She is tolerating diet. Patient continues to have right heel pain and is getting an MRI today. OBJECTIVE: Vital signs-see below PHYSICAL EXAM: Constitutional: Well-developed, adequately built, lying in bed comfortably. Psych: nl mood/affect, no complaints Head: atraumatic, normocephalic Eyes: nl conjunctiva, nl sclera ENMT: mucosa pink and moist, nl external ears & nose Neck: non-tender, supple Respiratory: clear to auscultation, normal air movement Cardiovascular: nl pulses, regular rate and rhythm Gastrointestinal: Soft, nontender, no rebound tenderness, bowel sounds active in all 4 quadrants. Musculoskeletal/extremities: +Tenderness heel R>L, nl extremities to inspection, motor strength equal bilaterally, no focal deficit. Normal pulses,no cyanosis, no edema. 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: Alert oriented 3,nl speech, nl strength Skin: nl turgor ASSESSMENT/PLAN: 72-year-old female with a history of multiple abdominal surgeries in the past, recurrent small bowel obstructions, here with abdominal pain, found to have partial small bowel obstruction. 1. Partial small bowel obstruction, recurrent. -Resolving. Bowel series with no evidence of obstruction. Surgery managing and plan is to DC NG tube and start on a clear diet and observe for another 24 hours. 2. Bilateral heel pain,R>L, worse with walking, likely plantar fasciitis -Case reviewed by podiatry. Plan is to get further imaging with MRI. -Continue NSAIDs, supportive care and elevation. 3. Anemia, likely chronic. -Stable H&H. No overt bleeding. Continue to monitor. DVT prophylaxis: SCDs PUD prophylaxis: Protonix CODE STATUS: Full code Diet: Clear diet, advance per surgery Disposition: Overall, patient with improving symptoms and is getting ready for discharge. However she is with right heel pain requiring further imaging studies including MRI. We will follow-up podiatry recommendations. Patient was seen in collaboration with Result Diagram: 04/03/18 0450 04/03/18 0450 Results 24hrs Laboratory Tests Test 04/03/18 04:50 White Blood Count 4.3 L Red Blood Count 3.02 L Hemoglobin 9.3 L Hematocrit 28.3 L Mean Corpuscular Volume 93.7 Mean Corpuscular Hemoglobin 30.8 Mean Corpuscular Hemoglobin Concent 32.9 Red Cell Distribution Width 14.2 Platelet Count 247 Mean Platelet Volume 9.7 Immature Granulocytes % 0.200 Neutrophils % 70.6 Lymphocytes % 17.3 Monocytes % 9.4 Eosinophils % 2.3 Basophils % 0.2 Nucleated Red Blood Cells % 0.0 Immature Granulocytes # 0.010 Neutrophils # 3.1 Lymphocytes # 0.8 Monocytes # 0.4 Eosinophils # 0.1 Basophils # 0.0 Nucleated Red Blood Cells # 0.0 Sodium Level 139 Potassium Level 3.5 Chloride Level 104 Carbon Dioxide Level 28 Anion Gap 7 Blood Urea Nitrogen 6 L Creatinine 0.53 Est Glomerular Filtrat Rate mL/min > 60 Glucose Level 112 Uric Acid 3.2 Calcium Level 8.7 Exam/Review of Systems Exam Vitals Vital Signs Date Temp Pulse Resp B/P (MAP) Pulse Ox O2 O2 Flow FiO2 Time Delivery Rate 04/03/18 98.0 68 18 101/62 99 Room Air 08:32 (75) Intake and Output 04/02/18 04/02/18 04/03/18 1515:00 23:00 07:00 IntakeIntake Total 640 ml BalanceBalance 640 ml Results Results 24hrs Laboratory Tests Test 04/03/18 04:50 White Blood Count 4.3 L Red Blood Count 3.02 L Hemoglobin 9.3 L Hematocrit 28.3 L Mean Corpuscular Volume 93.7 Mean Corpuscular Hemoglobin 30.8 Mean Corpuscular Hemoglobin Concent 32.9 Red Cell Distribution Width 14.2 Platelet Count 247 Mean Platelet Volume 9.7 Immature Granulocytes % 0.200 Neutrophils % 70.6 Lymphocytes % 17.3 Monocytes % 9.4 Eosinophils % 2.3 Basophils % 0.2 Nucleated Red Blood Cells % 0.0 Immature Granulocytes # 0.010 Neutrophils # 3.1 Lymphocytes # 0.8 Monocytes # 0.4 Eosinophils # 0.1 Basophils # 0.0 Nucleated Red Blood Cells # 0.0 Sodium Level 139 Potassium Level 3.5 Chloride Level 104 Carbon Dioxide Level 28 Anion Gap 7 Blood Urea Nitrogen 6 L Creatinine 0.53 Est Glomerular Filtrat Rate mL/min > 60 Glucose Level 112 Uric Acid 3.2 Calcium Level 8.7 Medications Medication Current Medications Dextrose/Sodium Chloride 1,000 ml @ 100 mls/hr Q10H IV Last administered on at 00:40; Admin Dose 100 MLS/HR; Start 03/30/18 at 05:09 IV Flush (NS 3 ml) 3 ml PER PROTOCOL IV ; Start 03/30/18 at 05:30 Hydromorphone HCl (Dilaudid) 0.5 mg Q4H PRN IV .SEVERE PAIN 7-10 Last a dministered on 04/01/18at 20:26; Admin Dose 0.5 MG; Start 03/30/18 at 05:30 Ondansetron HCl (Zofran Inj) 4 mg Q6H PRN IV NAUSEA AND/OR VOMITING Last administered on 03/31/18at 21:44; Admin Dose 4 MG; Start 03/31/18 at 11:30 Ibuprofen (Motrin) 400 mg Q6 PO Last administered on 04/03/18at 06:11; Admin Dose 400 MG; Start 04/02/18 at 12:00 Polyethylene Glycol (Miralax) 17 gm BID GTB ; Start 04/03/18 at 21:00 JOSIE WAGNER NP Apr 03, 2018 11:39
[2018-04-03 14:28] VITALS: BP 104/60; PULSE 70; RESP 18
--- NOTE | 2018-04-03 18:58 | PN ---
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 Discussed findings with patient to be chronic changes and recommend a CAM boot and NSAIDs to assist with pain. Recommend compression therapy to assist with edema and pain. No surgical plan at this time. Patient may follow up in outpatient clinic. Recommend a physical therapy consult to assist with pain, stretching exercises, and edema control. Result Diagram: 04/03/18 0450 04/03/18 0450 Results 24hrs Laboratory Tests Test 04/03/18 04:50 White Blood Count 4.3 L Red Blood Count 3.02 L Hemoglobin 9.3 L Hematocrit 28.3 L Mean Corpuscular Volume 93.7 Mean Corpuscular Hemoglobin 30.8 Mean Corpuscular Hemoglobin Concent 32.9 Red Cell Distribution Width 14.2 Platelet Count 247 Mean Platelet Volume 9.7 Immature Granulocytes % 0.200 Neutrophils % 70.6 Lymphocytes % 17.3 Monocytes % 9.4 Eosinophils % 2.3 Basophils % 0.2 Nucleated Red Blood Cells % 0.0 Immature Granulocytes # 0.010 Neutrophils # 3.1 Lymphocytes # 0.8 Monocytes # 0.4 Eosinophils # 0.1 Basophils # 0.0 Nucleated Red Blood Cells # 0.0 Sodium Level 139 Potassium Level 3.5 Chloride Level 104 Carbon Dioxide Level 28 Anion Gap 7 Blood Urea Nitrogen 6 L Creatinine 0.53 Est Glomerular Filtrat Rate mL/min > 60 Glucose Level 112 Uric Acid 3.2 Calcium Level 8.7 Subjective 24 Hr Interval Summary Free Text/Dictation No acute events overnight. Exam/Review of Systems Exam Vitals Vital Signs Date Temp Pulse Resp B/P (MAP) Pulse Ox O2 O2 Flow FiO2 Time Delivery Rate 04/03/18 97.4 18:30 04/03/18 70 18 104/60 99 Room Air 14:28 (75) Intake and Output 04/02/18 04/02/18 04/03/18 1515:00 23:00 07:00 IntakeIntake Total 640 ml BalanceBalance 640 ml Exam DP/PT pulses palpable protective sensations intact Pain with plantar fascia medial band and along the medial tubercle of calcaneus. Pain along the midsubstance and distal aspect of the medial band of plantar fascia Pain at the 5th metatarsal base and along the peroneal tendon Pain at the insertion of the posterior tibialis tendon No pain with dorsiflexion or plantarflexion Pain with eversion and inversion No pain to ATFL, negative anterior drawer sign Muscle strength 5/5 in all compartments of the foot Non-pitting edema appreciated to right foot and ankle region. Ankle MRI IMPRESSION: 1. Osteochondral lesion of the medial talar dome with a small focus of high- grade chondral loss in part to bone measuring about 3 x 10 mm with mild bone marrow edema. 2. Tenosynovitis of the posterior tibial and flexor tendons more prominent involving the flexor hallucis longus tendon - moderate. 3. Mild osteoarthrosis of the talonavicular joint. 4. Thickening and scarring of the deltoid ligament which may be from prior injury. 5. Small to moderate tibiotalar joint effusion and small subtalar joint effusion with a 2.3 cm ganglion cyst extending posterior to the tibiotalar and subtalar joints lateral to the flexor hallucis longus tendon. 6. Mild to moderate edema within the subcutaneous soft tissues around the ankle. Foot MRI IMPRESSION: 1. 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 2. Mild osteoarthrosis of the first metatarsophalangeal joint with a small to moderate joint effusion. 3. Mild osteoarthrosis of the tarsometatarsal joints. 4. Moderate edema within the subcutaneous soft tissues around the foot. Ankle X-ray IMPRESSION: Moderate degenerative changes of the ankle and midfoot. Soft tissue swelling of the ankle. Foot X-ray IMPRESSION: 1. No acute osseous abnormality. 2. Degenerative changes with soft tissue swelling of the foot and ankle. Results Results 24hrs Laboratory Tests Test 04/03/18 04:50 White Blood Count 4.3 L Red Blood Count 3.02 L Hemoglobin 9.3 L Hematocrit 28.3 L Mean Corpuscular Volume 93.7 Mean Corpuscular Hemoglobin 30.8 Mean Corpuscular Hemoglobin Concent 32.9 Red Cell Distribution Width 14.2 Platelet Count 247 Mean Platelet Volume 9.7 Immature Granulocytes % 0.200 Neutrophils % 70.6 Lymphocytes % 17.3 Monocytes % 9.4 Eosinophils % 2.3 Basophils % 0.2 Nucleated Red Blood Cells % 0.0 Immature Granulocytes # 0.010 Neutrophils # 3.1 Lymphocytes # 0.8 Monocytes # 0.4 Eosinophils # 0.1 Basophils # 0.0 Nucleated Red Blood Cells # 0.0 Sodium Level 139 Potassium Level 3.5 Chloride Level 104 Carbon Dioxide Level 28 Anion Gap 7 Blood Urea Nitrogen 6 L Creatinine 0.53 Est Glomerular Filtrat Rate mL/min > 60 Glucose Level 112 Uric Acid 3.2 Calcium Level 8.7 Medications Medication Current Medications Dextrose/Sodium Chloride 1,000 ml @ 100 mls/hr Q10H IV Last administered on 04/03/18 12:23; Admin Dose 100 MLS/HR; Start 03/30/18 at 05:09 IV Flush (NS 3 ml) 3 ml PER PROTOCOL IV ; Start 03/30/18 at 05:30 Hydromorphone HCl (Dilaudid) 0.5 mg Q4H PRN IV .SEVERE PAIN 7-10 Last administered on 04/01/18 20:26; Admin Dose 0.5 MG; Start 03/30/18 at 05:30 Ondansetron HCl (Zofran Inj) 4 mg Q6H PRN IV NAUSEA AND/OR VOMITING Last administered on 03/31/18at 21:44; Admin Dose 4 MG; Start 03/31/18 at 11:30 Ibuprofen (Motrin) 400 mg Q6 PO Last administered on 04/03/18at 17:45; Admin Dose 400 MG; Start 04/02/18 at 12:00 Polyethylene Glycol (Miralax) 17 gm BID GTB ; Start 04/03/18 at 21:00 ABBY MACHADO DPM Apr 03, 2018 18:58
[2018-04-03 20:00] VITALS: BP 95/52; PULSE 61; RESP 18
[2018-04-03] MEDS: POLYETHYLENE GLYCOL 17 GM PACKET GTB SCH (20:48)
[2018-04-03 21:00] VITALS: BP 100/55
[2018-04-04 02:00] VITALS: BP 98/53; PULSE 67; RESP 18
[2018-04-04] MEDS: IBUPROFEN 400 MG TAB PO SCH ×2 (05:37→11:19)
[2018-04-04 08:02] VITALS: BP 102/50; PULSE 65; RESP 16
[2018-04-04] MEDS: POLYETHYLENE GLYCOL 17 GM PACKET GTB SCH (08:35)
--- NOTE | 2018-04-04 12:27 | PDOCDIS ---
Discharge Instructions CONDITION [id number] Patient Condition: [id number] Stable HOME CARE INSTRUCTIONS: [id number] Diet Instructions: [id number] Regular FOLLOW UP/APPOINTMENTS Follow-up Plan Follow-up with primary care physician in 1 week Follow-up with [facility] wound clinic next week. JOSIE WAGNER NP Apr 04, 2018 12:27
[2018-04-04] MEDS ORDERED: IBUP-1982 PO (12:29)
--- NOTE | 2018-04-04 12:35 | DS ---
Date/Time of Note Date/Time of Note DATE: 04/04/18 TIME: 12:32 Discharge Summary Admission/Discharge Info Admit Date/Time Mar 30, 2018 at 04:27 Discharge Date/Time Discharge Diagnosis Recurrent partial small bowel obstruction. Resolved Right foot tenosynovitis, plantar fasciitis. Stable. Chronic anemia Patient Condition: Stable Consults Dr. Spencer, surgery , podiatry Procedures 2018. CT abdomen and pelvis. IMPRESSION: 1. Again noted are dilated loops of small bowel in the left abdomen and central lower abdomen with more normal caliber proximal and distal small bowel consistent with partial closed loop obstruction. 2. Diverticulosis sigmoid colon without CT evidence diverticulitis. No evidence of appendicitis. 3. Evidence of previous abdominal surgery. Status post hysterectomy. 4. Cholelithiasis with an otherwise unremarkable distended gallbladder. No biliary ductal dilation. 5. No evidence of calcified urinary calculi or obstructive uropathy. 6. Hepatic fatty infiltration. 03/31/2018. CT abdomen and pelvis IMPRESSION: 1. There is an NG tube noted with distal portion of the gastric fundus. 2. Oral contrast material noted in the stomach and proximal small bowel. The opacified proximal small bowel loops do not appear dilated, representing improvement when compared to 03/30/2018. 3. There are persistent dilated small bowel loops in the mid abdomen containing fecalized content, which are unchanged. This suggests stasis secondary to persistent partial closed loop obstruction. Consider delayed imaging to allow for transit of oral contrast material through the remainder of the bowel. 4. Ventral abdominal hernia, containing fat., unchanged. 5. Mild atelectasis in the dependent portions of the lower lobes. This has worsened slightly when compared to the previous study. 04/01/2018. Abdominal series IMPRESSION: 1. No evidence of mechanical bowel obstruction or intra-abdominal free air. 04/03. MRI of the right foot IMPRESSION: 1. 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 2. Mild osteoarthrosis of the first metatarsophalangeal joint with a small to moderate joint effusion. 3. Mild osteoarthrosis of the tarsometatarsal joints. 4. Moderate edema within the subcutaneous soft tissues around the foot. 04/03/2018. MRI of right ankle. IMPRESSION: 1. Osteochondral lesion of the medial talar dome with a small focus of high- grade chondral loss in part to bone measuring about 3 x 10 mm with mild bone marrow edema. 2. Tenosynovitis of the posterior tibial and flexor tendons more prominent involving the flexor hallucis longus tendon - moderate. 3. Mild osteoarthrosis of the talonavicular joint. 4. Thickening and scarring of the deltoid ligament which may be from prior injury. 5. Small to moderate tibiotalar joint effusion and small subtalar joint effusion with a 2.3 cm ganglion cyst extending posterior to the tibiotalar and subtalar joints lateral to the flexor hallucis longus tendon. 6. Mild to moderate edema within the subcutaneous soft tissues around the ankle. Hospital Course [id number] female with a history of multiple abdominal surgeries in the past, recurrent small bowel obstructions, here with abdominal pain, found to have partial small bowel obstruction. Patient was treated conservatively with medical management, NG tube decompression. She was being followed by surgery. Repeat imaging showed resolution of small bowel obstruction. There was no further indication for surgical approach. Patient was started on a diet which she was able to tolerate. She had regular bowel movement and was passing flatus. She was medically cleared from a surgical standpoint for discharge. Hospital stay was also noted for worsening pain on right heel for which patient had podiatry follow-up. Repeated imagings done with no evidence of osteomyelitis. Patient was noted to have plantar fasciitis, FHL tendinosis, PT tendinosis, peroneal tendinosis, OCD lesions right ankle, likely culprit of the pain. She was also noted with a symptomatic right foot neuroma. Podiatry recommended medical management on NSAIDs,CAM boots and outpatient follow-up. Patient felt much improvement in her pain status and she was able to tolerate abduction without any difficulties. At this time, patient is medically stable for discharge with outpatient [facility] wound clinic follow-up. Approximately 60 m spent on coordinating the discharge on this patient. Patient was seen in collaboration with Dr.ABE Aleman Medrenée Active Scripts Ibuprofen* (Ibuprofen*) 200 Mg Capsule, 200 MG PO Q12, #14 CAP Prov:JOSIE WAGNER V. POOLROOM/POOLHALL MANAGER 04/04/18 Reported Medications [place]-3 Fatty Acids/Fish Oil (Fish Oil 1,000 mg Capsule) 1 Each Capsule, 1 EACH PO DAILY, CAP 03/30/18 Multivitamins* (Theragran*) 1 Tab Tab, 1 TAB PO DAILY, TAB 08/19/17 Discontinued Reported Medications Glucosamine Sulfate 2KCL (GLUCOSAMINE) 1,000 Mg Tablet, 1000 MG PO DAILY, TAB 03/30/18 Alendronate Sodium* (Fosamax*) 70 Mg Tablet, 70 MG PO QFRIDAY, #4 TAB 08/19/17 Docusate Sodium* (Docusate Sodium*) 100 Mg Capsule, 100 MG PO BID, #60 CAP 08/19/17 Follow-up Plan Follow-up with primary care physician in 1 week Follow-up with [facility] wound clinic next week. Primary Care Provider Krishna Mauricio Pending Labs Laboratory Tests Test 04/04/18 05:46 White Blood Count 3.3 10^3/ul (4.8-10.8) Red Blood Count 3.11 10^6/ul (4.20-5.40) Hemoglobin 9.4 g/dl (12.0-16.0) Hematocrit 29.3 % (37.0-47.0) Mean Corpuscular Volume 94.2 fl (82.0-101.0) Mean Corpuscular Hemoglobin 30.2 pg (29.0-33.0) Mean Corpuscular Hemoglobin Concent 32.1 g/dl (32.0-37.0) Red Cell Distribution Width 14.2 % (11.5-14.5) Platelet Count 262 10^3/UL (140-415) Mean Platelet Volume 9.9 fl (7.4-10.4) Immature Granulocytes % 0.300 % (0.001-0.429) Neutrophils % 66.9 % (39.0-77.0) Lymphocytes % 23.4 % (15.0-51.0) Monocytes % 6.1 % (0.0-11.0) Eosinophils % 3.0 % (0.0-7.0) Basophils % 0.3 % (0.0-2.0) Nucleated Red Blood Cells % 0.0 /100WBC (0.0-0.0) Immature Granulocytes # 0.010 10^3/ul (0.0-0.031) Neutrophils # 2.2 10^3/ul (1.6-7.5) Lymphocytes # 0.8 10^3/ul (0.8-2.9) Monocytes # 0.2 10^3/ul (0.3-0.9) Eosinophils # 0.1 10^3/ul (0.0-0.5) Basophils # 0.0 10^3/ul (0.0-0.1) Nucleated Red Blood Cells # 0.0 10^3/ul (0.0-0.0) Sodium Level 141 mmol/L (135-144) Potassium Level 4.0 mmol/L (3.5-5.1) Chloride Level 106 mmol/L (97-110) Carbon Dioxide Level 26 mmol/L (21-31) Anion Gap 9 (5-13) Blood Urea Nitrogen 11 mg/dl (7-20) Creatinine 0.56 mg/dl (0.44-1.00) Est Glomerular Filtrat Rate mL/min > 60 mL/min (>60) Glucose Level 93 mg/dl (70-220) Calcium Level 9.0 mg/dl (8.4-10.2) JOSIE WAGNER NP Apr 04, 2018 12:35
[2018-04-04 14:27] VITALS: BP 109/56; PULSE 70; RESP 16
[2018-04-04] MEDS: DEXTROSE 5%-0.45% NACL 1,000 ML IV SCH (15:09)
== END 2018-04-04 17:46 | disposition home or self-care (01) | DRG 390 ==
LOC: E/R 02:15 → PP2 04:27
PROVIDERS: ADMIT Internal Medicine; ATTEND Internal Medicine
DX: K56.600 Partial intestinal obstruction, unspecified as to cause (principal); M72.2 Plantar fascial fibromatosis; M76.71 Peroneal tendinitis, right leg; M65.871 Other synovitis and tenosynovitis, right ankle and foot; M76.821 Posterior tibial tendinitis, right leg; D64.89 Other specified anemias; M81.0 Age-related osteoporosis without current pathological fracture; Z92.21 Personal history of antineoplastic chemotherapy; Z92.3 Personal history of irradiation; Z90.710 Acquired absence of both cervix and uterus; Z85.41 Personal history of malignant neoplasm of cervix uteri
CPT/HCPCS: 36415; 71045; 73630; 73718; 73721; 74019; 74176; 80048; 80053; 81003; 83036; 83690; 83735; 84560; 85025; 93970; 96374; 96375; 97161; J1170; J1650; J2270; J2405; J2543; J3480; J7042; Q9967

== ENCOUNTER 2018-07-06 04:15 | Inpatient (IN) | payer OTHER ==
[~2018-07-06] VITALS: Ht 157.5 cm; Wt 62.7 kg
[~2018-07-06 04:15] MED LIST changes: -ALEN70TA5 PO; -DOCU-159 PO; +IBUP-1982 PO; +OMEG-135 PO
[2018-07-06] MEDS ORDERED: POLY17PO28 PO (05:32)
[2018-07-06] MEDS ORDERED: ALEN70TA5 PO (05:32)
[2018-07-06] MEDS ORDERED: morphine 4 MG/ML VIAL IV STA (05:48)
[2018-07-06] MEDS ORDERED: ONDANSETRON 4 MG INJ IV STA ×2 (05:48→07:36)
[2018-07-06] MEDS ORDERED: SOD CHLORIDE 0.9% 1,000 ML IV STA (05:48)
--- NOTE | 2018-07-06 06:36 | ERD ---
ER Documentation Chief Complaint Chief Complaint LUQ AP, N/V X 1 DAY HPI This is a very pleasant 72-year-old female presents to the emergency department the past surgical history of total abdominal hysterectomy. The patient indicate s that she is undergone 7 abdominal surgeries. She states this was due to abnormal findings that were suggestive of carcinoma several years ago. Since that time she is had multiple small bowel obstructions. She indicates that for the past 24 hours she has been having severe abdominal pain. The patient states the pain began in the left upper quadrant now radiates to the left lower quadrant. The pain is 10 out of 10 in intensity. She had one episode of nonbloody nonbilious emesis. She has not experience flatulence but did states she had one bowel movement yesterday. She indicates that the pain has been persistent and progressively worsened. It is now 10 out of 10 in intensity with mild abdominal distention's. She has had no fevers no shaking no chills. She denies any chest pain. She has no shortness of breath. She states she had multiple similar episodes of this pain in the past which is been diagnosed with small bowel obstructions. ROS All systems reviewed and are negative except as per history of present illness. Medications Home Meds Reported Medications Polyethylene Glycol* (Polyethylene Glycol*) 17 Gm Powd.pack, 17 GM PO DAILY for 30 Days, #30 07/06/18 Alendronate Sodium* (Fosamax*) 70 Mg Tablet, 70 MG PO Q7D for QTHURSDAY for 60 Days 07/06/18 Leopold-3 Fatty Acids/Fish Oil (Fish Oil 1,000 mg Capsule) 1 Each Capsule, 1 EACH PO DAILY, CAP 03/30/18 Multivitamins* (Theragran*) 1 Tab Tab, 1 TAB PO DAILY, TAB 08/19/17 Discontinued Scripts Ibuprofen* (Ibuprofen*) 200 Mg Capsule, 200 MG PO Q12, #14 CAP Prov:JOSIE WAGNER V. BINDING DYER 04/04/18 Allergies Allergies: Coded Allergies: No Known Allergies (Unverified Allergy, Mild, 07/06/18) PMhx/Soc History of Surgery: Yes (hysterectomy 2003, SBO repair) Anesthesia Reaction: No Hx 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 Disorder: No Hx Respiratory Disorders: No Hx Cardiac Disorders: No Hx Psychiatric Problems: No Hx Miscellaneous Medical Probl: Yes (CERVICAL CANCER , SBO, OSTEOPROSIS, RT FOOT EDEMA, RLE PAIN , PLANTAR FASCI) Hx Alcohol Use: No Hx Substance Use: No Hx Tobacco Use: No Smoking Status: Never smoker Physical Exam Vitals Vital Signs Date Temp Pulse Resp B/P (MAP) Pulse Ox O2 O2 Flow FiO2 Time Delivery Rate 07/06/18 97.2 90 20 127/79 99 04:21 (95) Physical Exam Constitutional:Well-developed. Well-nourished. Patient appears to be in discomfort secondary to pain. HEENT:Normocephalic. Atraumatic.Pupils were equal round reactive to light. Moist mucous membranes.No tonsillar exudates. Neck: No nuchal rigidity. No lymphadenopathy. No posterior cervical spine tenderness or step-offs. Respiratory: Not using accessory muscles of respiration.Lungs were clear to auscultation bilaterally. No rhonchi. No rales. No wheezing. Cardiovascular: Regular rate regular rhythm.No murmurs. No rubs were appreciated.S1, S2 normal. Distal pulses are palpable 2+ bilaterally. GI: Abdomen was soft. Nontender. Mild distention. No pulsatile abdominal masses or bruits. No rebound. No guarding. Bowel sounds were hyperactive. Muscle skeletal: Full range of motion of both the upper and lower extremities bilaterally.Normal muscle tone.No assymetrical calf tenderness or swelling. Skin: No petechia, no purpura. No lesions on the palms or the soles of the feet. No maculopapular rash. NEURO: Patient was alert, awake, orientated x3.No facial droop. Gait observed and normal with no ataxia.Speech had regular rate and rhythm. No focal neurological deficits. Result Diagram: 07/06/1851707/06/1818 Results 24 hrs Laboratory Tests Test 07/06/18 05:18 07/06/18 07:50 White Blood Count 5.9 10^3/ul Red Blood Count 3.80 10^6/ul Hemoglobin 11.5 g/dl Hematocrit 35.1 % Mean Corpuscular Volume 92.4 fl Mean Corpuscular Hemoglobin 30.3 pg Mean Corpuscular Hemoglobin Concent 32.8 g/dl Red Cell Distribution Width 14.6 % Platelet Count 277 10^3/UL Mean Platelet Volume 9.9 fl Immature Granulocytes % 0.300 % Neutrophils % 82.2 % Lymphocytes % 11.0 % Monocytes % 5.7 % Eosinophils % 0.5 % Basophils % 0.3 % Nucleated Red Blood Cells % 0.0 /100WBC Immature Granulocytes # 0.020 10^3/ul Neutrophils # 4.9 10^3/ul Lymphocytes # 0.7 10^3/ul Monocytes # 0.3 10^3/ul Eosinophils # 0.0 10^3/ul Basophils # 0.0 10^3/ul Nucleated Red Blood Cells # 0.0 10^3/ul Sodium Level 139 mmol/L Potassium Level 4.2 mmol/L Chloride Level 102 mmol/L Carbon Dioxide Level 28 mmol/L Anion Gap 9 Blood Urea Nitrogen 23 mg/dl Creatinine 0.67 mg/dl Est Glomerular Filtrat Rate mL/min > 60 mL/min Glucose Level 132 mg/dl Calcium Level 9.5 mg/dl Total Bilirubin 0.8 mg/dl Direct Bilirubin 0.00 mg/dl Indirect Bilirubin 0.8 mg/dl Aspartate Amino Transf (AST/SGOT) 25 IU/L Alanine Aminotransferase (ALT/SGPT) 17 IU/L Alkaline Phosphatase 60 IU/L Total Protein 8.0 g/dl Albumin 4.4 g/dl Globulin 3.60 g/dl Albumin/Globulin Ratio 1.22 Lipase 59 U/L Urine Color STRAW Urine Clarity CLEAR Urine pH 7.0 Urine Specific [place] 1.029 Urine Ketones TRACE mg/dL Urine Nitrite NEGATIVE mg/dL Urine Bilirubin NEGATIVE mg/dL Urine Urobilinogen NEGATIVE mg/dL Urine Leukocyte Esterase NEGATIVE Ol[place]/ul Urine Hemoglobin NEGATIVE mg/dL Urine Glucose NEGATIVE mg/dL Urine Total Protein NEGATIVE mg/dl Current Medications Medications Dose Sig/Alma Start Time Status Last (Trade) Ordered Route PRN Stop Time Admin Dose Reason Admin Sodium 1,000 ml @ Q1H STAT 07/06/18 DC 07/06/18 Chloride 1,000 mls/hr IV 05:48 05:53 07/06/18 06:47 Morphine 4 mg ONCE STAT 07/06/18 DC 07/06/18 Sulfate IV 05:48 05:53 (morphine) 07/06/18 05:49 Ondansetron 4 mg ONCE STAT 07/06/18 DC 07/06/18 HCl (Zofran IV 05:48 05:53 Inj) 07/06/18 05:49 Sodium 100 ml @ ud STK-MED 07/06/18 DC 07/06/18 Chloride ONCE .ROUTE 06:39 06:49 07/06/18 06:40 Iohexol 150 ml STK-MED 07/06/18 DC 07/06/18 (Omnipaque ONCE .ROUTE 06:40 06:48 300mg/ ml) 07/06/18 06:41 1 mg ONCE STAT 07/06/18 DC 07/06/18 Hydromorphone IV 07:36 08:01 HCl 07/06/18 07:38 (Dilaudid) Ondansetron 4 mg ONCE STAT 07/06/18 DC 07/06/18 HCl (Zofran IV 07:36 08:00 Inj) 07/06/18 07:38 Procedures/MDM This patient presented to the emergency department with abdominal pain and was seen and evaluated by myself. My differential diagnosis included but was not limited to abdominal aortic aneurysm, appendicitis, pancreatitis, perforated peptic ulcer, perforated viscus, Boerhaave's syndrome or visceral pain such as diverticulitis, DKA, esophagitis, hepatitis or bowel obstruction. The patient was placed on a plaster foreman, continuous pulse oximetry, and IV access was established by nursing staff. The patient was given intravenous morphine and Zofran for analgesic control. The patient's physical exam findings were concerning for small bowel obstruction. Therefore obtained a CT scan of the abdomen which was reviewed by the radiologist myself and indicate the followin. Multiple moderately distended fluid-filled loops of small bowel with focal transition point at the level of the distal ileum in the midline pelvis. Findings are concerning for small bowel obstruction. 2. Colonic diverticulosis. 3. Cholelithiasis. 4. Mild left renal pelviectasis. 5. Status post hysterectomy. 6. 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 7. Old fracture deformity of the right inferior pubic ramus. 8. Chronic moderate to severe compression fracture of the L5 vertebral body. 9. Arterial atherosclerosis. The patient received a surgical consult Dr. Wilkins kindly see the patient. The patient will be admitted to the hospitalist Dr. Payton. I placed an NG tube and afterwards confirm that the NG tube is in good placement by using a Shalom s yringe to hear that gastric sounds were present. Post radiograph indicated that NG tube was in good position. Critical Care: Time: 55 minutes Treatments/Evaluations: Close monitoring and treatment of unstable vital signs, cardiorespiratory, and neurologic status, while maintaining tight balance of fluid, respiratory, and cardiac interventions. Time does not include performing any of the above billable procedures. Departure Diagnosis: Primary Impression: SBO (small bowel obstruction) Condition: JOHNNY Zelaya MD July 06, 2018 06:36
[2018-07-06] MEDS ORDERED: SOD CHLORIDE 0.9% 100 ML ONE (06:39)
[2018-07-06] MEDS ORDERED: IOHEXOL 300MG/ML 150 ML BTL ONE (06:40)
[2018-07-06] MEDS ORDERED: HYDROmorphONE 1 MG/ML SYG IV STA (07:36)
[2018-07-06 12:59] VITALS: BP 103/57; PULSE 64; RESP 20
[2018-07-06 13:11] VITALS: Ht 157.5 cm; Wt 62.7 kg
[2018-07-06] MEDS ORDERED: ONDANSETRON 4 MG INJ IV PRN (14:30)
[2018-07-06] MEDS ORDERED: ACETAMINOPHEN 325 MG TAB PO PRN (14:30)
[2018-07-06] MEDS ORDERED: NACL 0.9% 3 ML SYG IV SCH (14:30)
[2018-07-06] MEDS ORDERED: morphine 2 MG INJ IV PRN (14:30)
[2018-07-06 14:48] VITALS: BP 110/62; PULSE 65; RESP 20
--- NOTE | 2018-07-06 14:54 | HP ---
Date/Time of Note Date/Time of Note DATE: 07/06/18 TIME: 14:40 Assessment/Plan VTE Prophylaxis SCD applied (from Nsg): Yes Pharmacological prophylaxis: NA/contraindicated Pharm contraindication: low risk/ambulating Lines/Catheters IV Catheter Type (from Nrsg): Saline Lock Assessment/Plan Hospital Course SUBJECTIVE: Lying in bed comfortably. Complaining of abdominal pain which is improved from before. OBJECTIVE: Vital signs-see below PHYSICAL EXAM: Constitutional: Adequately built,not in acute distress. HEENT: Head atraumatic and normocephalic. Eyes: Extraocular muscles intact. Anicteric sclerae. Pupils equal bilaterally, reactive to light. NECK: Supple without lymph node. CHEST: Clear and good breath sounds equally. No wheezing. No rhonchi. HEART: S1, S2. Regular rate and rhythm. ABDOMEN: Slight tenderness to all 4 quadrants, no rebound tenderness. Hyperactive bowel sounds. No distention. EXTREMITIES: No cyanosis, clubbing or edema. NEUROLOGIC: Alert and oriented x3. No focal deficit. No sensory deficit. PSYCHOSOCIAL: No signs of depression. INTEGUMENTARY: No open wounds. ASSESSMENT AND PLAN: SUBJECTIVE: Patient with no abdominal pain. She has been passing flatus. No bowel movement today. Patient now complains of bilateral heel pain more on right, get worse when she walks. OBJECTIVE: Vital signs-see below PHYSICAL EXAM: Constitutional: Well-developed, adequately built, lying in bed comfortably. Psych: nl mood/affect, no complaints Head: atraumatic, normocephalic Eyes: nl conjunctiva, nl sclera ENMT: mucosa pink and moist, nl external ears & nose Neck: non-tender, supple Respiratory: clear to auscultation, normal air movement Cardiovascular: nl pulses, regular rate and rhythm Gastrointestinal: Soft, nontender, no rebound tenderness, bowel sounds active in all 4 quadrants. Musculoskeletal/extremities: +Tenderness heel R>L, nl extremities to inspection, motor strength equal bilaterally, no focal deficit. Normal pulses,no cyanosis, no edema. 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: Alert oriented 3,nl speech, nl strength Skin: nl turgor ASSESSMENT/PLAN: 72-year-old female with a history of multiple abdominal surgeries in the past, recurrent small bowel obstructions, here with abdominal pain, found to have SBO again Recurrent small bowel obstruction -She seems quite stable. At this time, we will continue NG tube decompression/LIS. Obtain a small bowel follow-through x-ray. -Bowel rest/pain control -Follow-up surgeon's recommendations. Chronic anemia -Stable H&H DVT prophylaxis: SCDs Rest of the management depend on clinical course. Approximately 60 m spent on this history and physical. Patient was seen in collaboration with Result Diagram: 07/06/18 0518 07/06/18 0518 Results 24hrs Laboratory Tests Test 07/06/18 05:18 07/06/18 07:50 White Blood Count 5.9 # Red Blood Count 3.80 #L Hemoglobin 11.5 #L Hematocrit 35.1 L Mean Corpuscular Volume 92.4 Mean Corpuscular Hemoglobin 30.3 Mean Corpuscular Hemoglobin Concent 32.8 Red Cell Distribution Width 14.6 H Platelet Count 277 Mean Platelet Volume 9.9 Immature Granulocytes % 0.300 Neutrophils % 82.2 H Lymphocytes % 11.0 L Monocytes % 5.7 Eosinophils % 0.5 Basophils % 0.3 Nucleated Red Blood Cells % 0.0 Immature Granulocytes # 0.020 Neutrophils # 4.9 Lymphocytes # 0.7 L Monocytes # 0.3 Eosinophils # 0.0 Basophils # 0.0 Nucleated Red Blood Cells # 0.0 Sodium Level 139 Potassium Level 4.2 Chloride Level 102 Carbon Dioxide Level 28 Anion Gap 9 Blood Urea Nitrogen 23 H Creatinine 0.67 Est Glomerular Filtrat Rate mL/min > 60 Glucose Level 132 Calcium Level 9.5 Total Bilirubin 0.8 Direct Bilirubin 0.00 Indirect Bilirubin 0.8 Aspartate Amino Transf (AST/SGOT) 25 Alanine Aminotransferase (ALT/SGPT) 17 Alkaline Phosphatase 60 Total Protein 8.0 Albumin 4.4 Globulin 3.60 H Albumin/Globulin Ratio 1.22 Lipase 59 Urine Color STRAW Urine Clarity CLEAR Urine pH 7.0 Urine Specific [place] 1.029 Urine Ketones TRACE A Urine Nitrite NEGATIVE Urine Bilirubin NEGATIVE Urine Urobilinogen NEGATIVE Urine Leukocyte Esterase NEGATIVE Urine Hemoglobin NEGATIVE Urine Glucose NEGATIVE Urine Total Protein NEGATIVE HPI/ROS Admit Date/Time Admit Date/Time July 06, 2018 at 08:17 Hx of Present Illness This a 72-year-old female with a history of multiple abdominal surgeries in the past with recurrent small bowel obstructions, chronic anemia, admitted this morning with worsening abdominal pain started last night. She was also feeling nauseated with one episode of nonbilious/nonbloody vomiting. She denied fever, chills. She is not sure if she has been having constipation. She felt like passing liquid/water to her rectum at the time when she urged to go to [facility]. In the emergency room, vital signs stable, CBC/BMP stable. Patient's abdominal CT showed multiple moderately distended fluid-filled loops of small bowel with focal transition point at the level of the distal ileum in the midline pelvis, concerning for small bowel obstruction. There was also evidence of colonic diverticulosis without evidence of diverticulitis. There was also evidence of cholelithiasis without evidence of cholecystitis. Patient was given pain medications and a surgical consult with Dr. Spencre was called from the emergency room and was admitted. At my encounter with the patient, her pain is much improved. She did not feel like passing flatus. She is currently not having any nausea or vomiting. No fevers. Denies chest pain, palpitation, shortness of breath or other constitutional symptoms. ROS 12 point review of system was assessed and is negative other than what is mentioned in the HPI PMH/Family/Social Past Medical History See HPI Medications Current Medications Sodium Chloride 1,000 ml @ 75 mls/hr [id number] IV ; Start 07/06/18 at 14:27; Status UNV IV Flush (NS 3 ml) 3 ml PER PROTOCOL IV ; Start 07/06/18 at 14:30; Status UNV Ondansetron HCl (Zofran Inj) 4 mg Q6H PRN IV NAUSEA/VOMITING; Start 07/06/18 at 14:30; Status UNV Acetaminophen (Tylenol Tab) 650 mg Q6H PRN PO .PAIN 1-3 OR TEMP; Start 07/06/18 at 14:30; Status UNV Morphine Sulfate (morphine) 2 mg Q4H PRN IV .SEVERE PAIN 7-10; Start 07/06/18 at 14:30; Status UNV Coded Allergies: No Known Allergies (Unverified Allergy, Mild, 07/06/18) Past Surgical History See HPI Past Surgical Hx: appendectomy, other Family History Significant Family History: no pertinent family hx Social History Denied history of alcohol, smoking or illicit drug use Smoking Status: Never smoker Exam/Review of Systems Vital Signs Vitals Vital Signs Date Temp Pulse Resp B/P (MAP) Pulse Ox O2 O2 Flow FiO2 Time Delivery Rate 07/06/18 98.5 64 20 103/57 97 12:59 (72) 07/06/18 Room Air 12:38 JOSIE WAGNER NP July 06, 2018 14:52
[2018-07-06] MEDS: SOD CHLORIDE 0.9% 1,000 ML IV SCH (15:00)
[2018-07-06 19:29] VITALS: BP 92/54; PULSE 65; RESP 16
--- NOTE | 2018-07-06 19:45 | CONS ---
Assessment/Plan Assessment/Plan Assessment/Plan (Daily) Resolving small bowel obstruction Abdominal series in a.m. If improved, would DC NG tube and start clears. Seems to be resolving as abdomen is less distended and is passing flatus. Continue n.p.o. for now Consultation Date/Type/Reason Admit Date/Time July 06, 2018 at 08:17 Date/Time of Note DATE: 07/06/18 TIME: 19:41 Hx of Present Illness The patient is a 72-year-old female with multiple recurrent small bowel obstr uctions in the past. These all resolved conservatively. She was recently hospitalized in March for similar symptoms. Developed acute onset of crampy abdominal pain with nausea. Patient states her symptoms began yesterday. She describes her pain is 10 out of 10. Mostly localized to the left lower quadrant. However, the daughter feels that she has been having the symptoms for more than a week. She presented to the ER this morning. Her work-up was consistent with a small bowel obstruction. I was called for consultation. She is status post 7 abdominal operations. She denies fevers or chills. She did have a small bowel movement yesterday. She states that she did pass flatus today. 14 point review of systems was performed. Pertinent negatives and positive per HPI. Past Medical History Medical History: other (Chronic anemia) Home Meds Reported Medications Polyethylene Glycol* (Polyethylene Glycol*) 17 Gm Powd.pack, 17 GM PO DAILY for 30 Days, #30 07/06/18 Alendronate Sodium* (Fosamax*) 70 Mg Tablet, 70 MG PO Q7D for QTHURS for 60 Days 07/06/18 Dows-3 Fatty Acids/Fish Oil (Fish Oil 1,000 mg Capsule) 1 Each Capsule, 1 EACH PO DAILY, CAP 03/30/18 Multivitamins* (Theragran*) 1 Tab Tab, 1 TAB PO DAILY, TAB 08/19/17 Discontinued Scripts Ibuprofen* (Ibuprofen*) 200 Mg Capsule, 200 MG PO Q12, #14 CAP Prov:JOSIE WAGNER V. BALLAST INSPECTOR 04/04/18 Medications Current Medications Sodium Chloride 1,000 ml @ 75 mls/hr [id number] IV Last administered on 07/06/18at 15:00; Admin Dose 75 MLS/HR; Start 07/06/18 at 14:27 IV Flush (NS 3 ml) 3 ml PER PROTOCOL IV ; Start 07/06/18 at 14:30 Ondansetron HCl (Zofran Inj) 4 mg Q6H PRN IV NAUSEA/VOMITING; Start 07/06/18 at 14:30 Acetaminophen (Tylenol Tab) 650 mg Q6H PRN PO .PAIN 1-3 OR TEMP; Start 07/06/18 at 14:30 Morphine Sulfate (morphine) 2 mg Q4H PRN IV .SEVERE PAIN 7-10; Start 07/06/18 at 14:30 Allergies: Coded Allergies: No Known Allergies (Unverified Allergy, Mild, 07/06/18) Past Surgical History Past Surgical Hx: appendectomy, other (Multiple abdominal surgeries) Family History Significant Family History: no pertinent family hx Social History Alcohol Use: rarely Smoking Status: Never smoker Exam/Review of Systems Exam Vitals Vital Signs Date Temp Pulse Resp B/P (MAP) Pulse Ox O2 O2 Flow FiO2 Time Delivery Rate 07/06/18 98.8 65 16 92/54 (67) 95 19:29 07/06/18 Room Air 12:38 Constitutional: alert, oriented Psych: no complaints, nl mood/affect Head: normocephalic ENMT: nl external ears & nose Neck: supple Respiratory: clear to auscultation, normal air movement Cardiovascular: regular rate and rhythm Gastrointestinal: soft, non-tender Extremities: normal pulses 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: MASONRY INSTALLER II-XII intact, nl mental status Skin: nl turgor, rash or lesions Lymph: nl lymph nodes Results Result Diagram: 07/06/18 0518 07/06/18 0518 Results 24hrs Laboratory Tests Test 07/06/18 05:18 07/06/18 07:50 White Blood Count 5.9 # Red Blood Count 3.80 #L Hemoglobin 11.5 #L Hematocrit 35.1 L Mean Corpuscular Volume 92.4 Mean Corpuscular Hemoglobin 30.3 Mean Corpuscular Hemoglobin Concent 32.8 Red Cell Distribution Width 14.6 H Platelet Count 277 Mean Platelet Volume 9.9 Immature Granulocytes % 0.300 Neutrophils % 82.2 H Lymphocytes % 11.0 L Monocytes % 5.7 Eosinophils % 0.5 Basophils % 0.3 Nucleated Red Blood Cells % 0.0 Immature Granulocytes # 0.020 Neutrophils # 4.9 Lymphocytes # 0.7 L Monocytes # 0.3 Eosinophils # 0.0 Basophils # 0.0 Nucleated Red Blood Cells # 0.0 Sodium Level 139 Potassium Level 4.2 Chloride Level 102 Carbon Dioxide Level 28 Anion Gap 9 Blood Urea Nitrogen 23 H Creatinine 0.67 Est Glomerular Filtrat Rate mL/min > 60 Glucose Level 132 Calcium Level 9.5 Total Bilirubin 0.8 Direct Bilirubin 0.00 Indirect Bilirubin 0.8 Aspartate Amino Transf (AST/SGOT) 25 Alanine Aminotransferase (ALT/SGPT) 17 Alkaline Phosphatase 60 Total Protein 8.0 Albumin 4.4 Globulin 3.60 H Albumin/Globulin Ratio 1.22 Lipase 59 Urine Color STRAW Urine Clarity CLEAR Urine pH 7.0 Urine Specific [place] 1.029 Urine Ketones TRACE A Urine Nitrite NEGATIVE Urine Bilirubin NEGATIVE Urine Urobilinogen NEGATIVE Urine Leukocyte Esterase NEGATIVE Urine Hemoglobin NEGATIVE Urine Glucose NEGATIVE Urine Total Protein NEGATIVE Imaging Imaging Patient: LINWOOD BRENNER : 1945 Age: 72 Sex: F MR #: [id number] DOS: 07/06/18 0552 Ordering MD: JOHNNY ONTIVEROS MD Location: E/R Room/Bed: PROCEDURE: CT Abdomen and Pelvis with contrast. CLINICAL INDICATION: Abdominal pain. TECHNIQUE: CT scan of the abdomen and pelvis with contrast was performed utilizing axial tomographic images from the domes the diaphragm to the symphysis pubis. The patient was scanned post uncomplicated intravenous administration of 100 cc of Omnipaque-300. Coronal and sagittal reformatted images were obtained from the axial source images. Images were reviewed on a high-resolution PACS workstation. The total exam CTDI equals 7.35 mGy and the total exam DLP equals 419.94 mGy-cm. One or more of the following dose reduction techniques w ere used: Automated exposure control, adjustment of the mA and / or kV according to patient size, or use of iterative reconstruction technique. DICOM images are available. COMPARISON: CT 03/31/2018 FINDINGS: The lung bases demonstrate mild bilateral basilar atelectatic changes. The liver is normal in size and contour. No focal intrahepatic masses are identified. There is no intra or extrahepatic biliary dilatation. The gallbladder contains stones. The spleen, pancreas, and adrenal glands are unremarkable. The kidneys are symmetric in size and demonstrate normal enhancement. There is mild left renal pelviectasis. No renal parenchymal mass is identified. The urinary bladder is unremarkable. There are multiple surgical clips within the right abdomen. The appendix is not visualized. There are multiple moderately distended fluid-filled loops of small bowel with focal transition point in the midline pelvis. There is decompression of the distal ileum. There is moderate volume stool throughout the colon. Diverticula are seen scattered throughout the colon without evidence of diverticulitis. The appendix is normal in appearance. The uterus is surgically absent. No intraperitoneal free fluid, free air or abscess identified. No retroperitoneal, mesenteric, or inguinal adenopathy is identified. There are multiple small ventral wall fascial defects with herniation of fat. The abdominal aorta and major branching vessels are normal in caliber and demonstrate vascular calcifications. The osseous structures demonstrate an old fracture deformity of the right inferior pubic ramus. There is a chronic moderate to severe compression fracture of the L5 vertebral body. No significant subcutaneous soft tissue abnormality is identified. IMPRESSION: 1. Multiple moderately distended fluid-filled loops of small bowel with focal transition point at the level of the distal ileum in the midline pelvis. Findings are concerning for small bowel obstruction. 2. Colonic diverticulosis. 3. Cholelithiasis. 4. Mild left renal pelviectasis. 5. Status post hysterectomy. 6. 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 7. Old fracture deformity of the right inferior pubic ramus. 8. Chronic moderate to severe compression fracture of the L5 vertebral body. 9. Arterial atherosclerosis. RPTAT: HH .Nanda Pulliam MD, MD Date Time Electronically viewed and signed by .Nanda Pulliam MD, on 07/06/2018 07:31 Medications Medication Current Medications Sodium Chloride 1,000 ml @ 75 mls/hr [id number] IV Last administered on 07/06/18at 15:00; Admin Dose 75 MLS/HR; Start 07/06/18 at 14:27 IV Flush (NS 3 ml) 3 ml PER PROTOCOL IV ; Start 07/06/18 at 14:30 Ondansetron HCl (Zofran Inj) 4 mg Q6H PRN IV NAUSEA/VOMITING; Start 07/06/18 at 14:30 Acetaminophen (Tylenol Tab) 650 mg Q6H PRN PO .PAIN 1-3 OR TEMP; Start 07/06/18 at 14:30 Morphine Sulfate (morphine) 2 mg Q4H PRN IV .SEVERE PAIN 7-10; Start 07/06/18 at 14:30 ALMA ESCOBAR MD July 06, 2018 19:45
[2018-07-07 01:59] VITALS: BP 92/50; PULSE 68; RESP 16
[2018-07-07] MEDS: SOD CHLORIDE 0.9% 1,000 ML IV SCH ×3 (04:50→22:50)
[2018-07-07 08:36] VITALS: BP 94/53; PULSE 70; RESP 18
[2018-07-07] MEDS ORDERED: IOHEXOL 300MG/ML 150 ML BTL ONE (09:56)
--- NOTE | 2018-07-07 14:17 | PN ---
Date/Time of Note Date/Time of Note DATE: 07/07/18 TIME: 14:14 Assessment/Plan VTE Prophylaxis Risk score (from Ns)>0 risk: 2 SCD applied (from Ns): Yes Pharmacological prophylaxis: NA/contraindicated Pharm contraindication: low risk/ambulating Lines/Catheters IV [facility]from [facility] Peripheral IV Assessment/Plan Hospital Course SUBJECTIVE: Doing well. Patient with no further abdominal pain. She has not had a bowel movement. Nasogastric tube drained 50 mL overnight. OBJECTIVE: Vital signs-see below PHYSICAL EXAM: Constitutional: Adequately built,not in acute distress. HEENT: Head atraumatic and normocephalic. Eyes: Extraocular muscles intact. Anicteric sclerae. Pupils equal bilaterally, reactive to light. NECK: Supple without lymph node. CHEST: Clear and good breath sounds equally. No wheezing. No rhonchi. HEART: S1, S2. Regular rate and rhythm. ABDOMEN: Slight tenderness to all 4 quadrants, no rebound tenderness. Hyperactive bowel sounds. No distention. EXTREMITIES: No cyanosis, clubbing or edema. NEUROLOGIC: Alert and oriented x3. No focal deficit. No sensory deficit. PSYCHOSOCIAL: No signs of depression. INTEGUMENTARY: No open wounds. ASSESSMENT AND PLAN: SUBJECTIVE: Patient with no abdominal pain. She has been passing flatus. No bowel movement today. Patient now complains of bilateral heel pain more on right, get worse when she walks. OBJECTIVE: Vital signs-see below PHYSICAL EXAM: Constitutional: Well-developed, adequately built, lying in bed comfortably. Psych: nl mood/affect, no complaints Head: atraumatic, normocephalic Eyes: nl conjunctiva, nl sclera ENMT: mucosa pink and moist, nl external ears & nose Neck: non-tender, supple Respiratory: clear to auscultation, normal air movement Cardiovascular: nl pulses, regular rate and rhythm Gastrointestinal: Soft, nontender, no rebound tenderness, bowel sounds active in all 4 quadrants. Musculoskeletal/extremities: +Tenderness heel R>L, nl extremities to inspection, motor strength equal bilaterally, no focal deficit. Normal pulses,no cyanosis, no edema. 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: Alert oriented 3,nl speech, nl strength Skin: nl turgor ASSESSMENT/PLAN: 72-year-old female with a history of multiple abdominal surgeries in the past, recurrent small bowel obstructions, here with abdominal pain, found to have SBO again Recurrent small bowel obstruction -SBFT with resolving SBO. Patient with improved abdominal pain. NG tube drain total 50 mL overnight. No BM yet -Follow surgical recommendations regarding NG tube discontinuation and starting diet whenever appropriate. Chronic anemia -Stable H&H DVT prophylaxis: SCDs Disposition: Overall patient with improving SBO. Await for further surgical recommendation regarding NG tube discontinuation and starting on a diet when appropriate. Patient was seen in collaboration with Result Diagram: 07/07/1842907/[id number]/18429 Results 24hrs Laboratory Tests Test 07/07/18 04:30 White Blood Count 4.3 #L Red Blood Count 3.37 L Hemoglobin 10.3 L Hematocrit 32.0 L Mean Corpuscular Volume 95.0 Mean Corpuscular Hemoglobin 30.6 Mean Corpuscular Hemoglobin Concent 32.2 Red Cell Distribution Width 14.9 H Platelet Count 248 Mean Platelet Volume 10.0 Immature Granulocytes % 0.500 H Neutrophils % 71.4 Lymphocytes % 19.6 Monocytes % 6.8 Eosinophils % 1.2 Basophils % 0.5 Nucleated Red Blood Cells % 0.0 Immature Granulocytes # 0.020 Neutrophils # 3.1 Lymphocytes # 0.8 Monocytes # 0.3 Eosinophils # 0.1 Basophils # 0.0 Nucleated Red Blood Cells # 0.0 Sodium Level 139 Potassium Level 3.9 Chloride Level 107 Carbon Dioxide Level 27 Anion Gap 5 Blood Urea Nitrogen 14 # Creatinine 0.59 Est Glomerular Filtrat Rate mL/min > 60 Glucose Level 89 # Hemoglobin A1c 5.6 Calcium Level 8.2 L Magnesium Level 2.0 Exam/Review of Systems Exam Vitals Vital Signs Date Temp Pulse Resp B/P (MAP) Pulse Ox O2 O2 Flow FiO2 Time Delivery Rate 07/07/18 98.0 70 18 94/53 (67) 99 08:36 07/06/18 Room Air 12:38 Intake and Output 07/06/18 07/06/18 07/07/18 1515:00 23:00 07:00 IntakeIntake Total 1150 ml OutputOutput Total 50 ml BalanceBalance 1100 ml Results Results 24hrs Laboratory Tests Test 07/07/18 04:30 White Blood Count 4.3 #L Red Blood Count 3.37 L Hemoglobin 10.3 L Hematocrit 32.0 L Mean Corpuscular Volume 95.0 Mean Corpuscular Hemoglobin 30.6 Mean Corpuscular Hemoglobin Concent 32.2 Red Cell Distribution Width 14.9 H Platelet Count 248 Mean Platelet Volume 10.0 Immature Granulocytes % 0.500 H Neutrophils % 71.4 Lymphocytes % 19.6 Monocytes % 6.8 Eosinophils % 1.2 Basophils % 0.5 Nucleated Red Blood Cells % 0.0 Immature Granulocytes # 0.020 Neutrophils # 3.1 Lymphocytes # 0.8 Monocytes # 0.3 Eosinophils # 0.1 Basophils # 0.0 Nucleated Red Blood Cells # 0.0 Sodium Level 139 Potassium Level 3.9 Chloride Level 107 Carbon Dioxide Level 27 Anion Gap 5 Blood Urea Nitrogen 14 # Creatinine 0.59 Est Glomerular Filtrat Rate mL/min > 60 Glucose Level 89 # Hemoglobin A1c 5.6 Calcium Level 8.2 L Magnesium Level 2.0 Medications Medication Current Medications Sodium Chloride 1,000 ml @ 75 mls/hr [id number] IV Last administered on 07/07/18at 04:50; Admin Dose 75 MLS/HR; Start 07/06/18 at 14:27 IV Flush (NS 3 ml) 3 ml PER PROTOCOL IV ; Start 07/06/18 at 14:30 Ondansetron HCl (Zofran Inj) 4 mg Q6H PRN IV NAUSEA/VOMITING; Start 07/06/18 at 14:30 Acetaminophen (Tylenol Tab) 650 mg Q6H PRN PO .PAIN 1-3 OR TEMP; Start 07/06/18 at 14:30 Morphine Sulfate (morphine) 2 mg Q4H PRN IV .SEVERE PAIN 7-10; Start 07/06/18 at 14:30 JOSIE WAGNER NP July 07, 2018 14:16
[2018-07-07 15:07] VITALS: BP 101/60; PULSE 72; RESP 18
--- NOTE | 2018-07-07 18:12 | PN ---
Date/Time of Note Date/Time of Note DATE: 07/07/18 TIME: 18:11 Assessment/Plan Lines/Catheters IV Catheter Type (from Nrsg): Peripheral IV Assessment/Plan Assessment/Plan Resolving SBO Start clears Soft diet in am If tolerates, d/c home in pm Subjective 24 Hr Interval Summary Constitutional: no complaints, BM Feeding: advancing diet Pain Control: well controlled Exam/Review of Systems Vital Signs Vitals Vital Signs Date Temp Pulse Resp B/P (MAP) Pulse Ox O2 O2 Flow FiO2 Time Delivery Rate 07/07/18 97.9 72 18 101/60 98 15:07 (74) 07/06/18 Room Air 12:38 Intake and Output 07/06/18 07/06/18 07/07/18 1515:00 23:00 07:00 IntakeIntake Total 1150 ml OutputOutput Total 50 ml BalanceBalance 1100 ml Exam Constitutional: alert, oriented, well developed Gastrointestinal: soft, non-tender Results Result Diagram: 07/07/18 0430 07/07/18 0430 ALMA ESCOBAR MD July 07, 2018 18:12
[2018-07-07 19:34] VITALS: BP 102/57; PULSE 71; RESP 16
[2018-07-08 02:13] VITALS: BP 98/59; PULSE 67; RESP 16
[2018-07-08 08:14] VITALS: BP 104/56; PULSE 65; RESP 16
--- NOTE | 2018-07-08 12:40 | DS ---
Date/Time of Note Date/Time of Note DATE: 07/08/18 TIME: 12:35 Discharge Summary Admission/Discharge Info Admit Date/Time July 06, 2018 at 08:17 Discharge Date/Time July 08, 2018 Discharge Diagnosis Recurrent small bowel obstruction; osteoporosis; compression fracture L5; history of inferior right pubic ramus fracture; anemia; cholelithiasis; diverticulosis coli; status post appendectomy; status post MYKE with BSO; status post laparotomy; status post other abdominal surgery; Patient Condition: Fair Consults General surgery-Dr. Escobar Procedures Abdominal pelvic CT scan IMPRESSION: 1. Multiple moderately distended fluid-filled loops of small bowel with focal transition point at the level of the distal ileum in the midline pelvis. Findings are concerning for small bowel obstruction. 2. Colonic diverticulosis. 3. Cholelithiasis. 4. Mild left renal pelviectasis. 5. Status post hysterectomy. 6. 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 7. Old fracture deformity of the right inferior pubic ramus. 8. Chronic moderate to severe compression fracture of the L5 vertebral body. 9. Arterial atherosclerosis. Small bowel follow-through IMPRESSION: Resolution of small bowel obstruction. No other abnormalities seen. Transit time to colon is 1 hour. Hx of Present Illness HPI This is a very pleasant 72-year-old female presents to the emergency department the past surgical history of total abdominal hysterectomy. The patient indicates that she is undergone 7 abdominal surgeries. She states this was due to abnormal findings that were suggestive of carcinoma several years ago. Since that time she is had multiple small bowel obstructions. She indicates that for the past 24 hours she has been having severe abdominal pain. The patient states the pain began in the left upper quadrant now radiates to the left lower quadrant. The pain is 10 out of 10 in intensity. She had one episode of nonbloody nonbilious emesis. She has not experience flatulence but did states she had one bowel movement yesterday. She indicates that the pain has been persistent and progressively worsened. It is now 10 out of 10 in intensity with mild abdominal distention's. She has had no fevers no shaking no chills. She denies any chest pain. She has no shortness of breath. She states she had multiple similar episodes of this pain in the past which is been diagnosed with small bowel obstructions. Hx of Present Illness This a 72-year-old female with a history of multiple abdominal surgeries in the past with recurrent small bowel obstructions, chronic anemia, admitted this morning with worsening abdominal pain started last night. She was also feeling nauseated with one episode of nonbilious/nonbloody vomiting. She denied fever, chills. She is not sure if she has been having constipation. She felt like passing liquid/water to her rectum at the time when she urged to go to [facility]. In the emergency room, vital signs stable, CBC/BMP stable. Patient's abdominal CT showed multiple moderately distended fluid-filled loops of small bowel with focal transition point at the level of the distal ileum in the midline pelvis, concerning for small bowel obstruction. There was also evidence of colonic diverticulosis without evidence of diverticulitis. There was also evidence of cholelithiasis without evidence of cholecystitis. Patient was given pain medications and a surgical consult with Dr. Escobar was called from the emergency room and was admitted. Hx of Present Illness The patient is a 72-year-old female with multiple recurrent small bowel obstructions in the past. These all resolved conservatively. She was recently hospitalized in March for similar symptoms. Developed acute onset of crampy abdominal pain with nausea. Patient states her symptoms began yesterday. She describes her pain is 10 out of 10. Mostly localized to the left lower quadrant. However, the daughter feels that she has been having the symptoms for more than a week. She presented to the ER this morning. Her work-up was consistent with a small bowel obstruction. I was called for consultation. She is status post 7 abdominal operations. Hospital Course Charming female who was observed conservatively. She has opened up on her own without surgical or other type of intervention. She is now having flatus and bowel movements, decreasing pain, the ability to take orally without complications, and is ambulating without issue. In addition she is not having fevers chills or sweats or other symptoms. This time she is markedly improved and is stable for discharge. Home Meds Reported Medications Polyethylene Glycol* (Polyethylene Glycol*) 17 Gm Powd.pack, 17 GM PO DAILY for 30 Days, #30 07/06/18 Alendronate Sodium* (Fosamax*) 70 Mg Tablet, 70 MG PO Q7D for QTHURSDAY for 60 Days 07/06/18 [place]-3 Fatty Acids/Fish Oil (Fish Oil 1,000 mg Capsule) 1 Each Capsule, 1 EACH PO DAILY, CAP 03/30/18 Multivitamins* (Theragran*) 1 Tab Tab, 1 TAB PO DAILY, TAB 08/19/17 Discontinued Scripts Ibuprofen* (Ibuprofen*) 200 Mg Capsule, 200 MG PO Q12, #14 CAP Prov:BERNARDJOSIEMELISSA Sarkar NP 04/04/18 Follow-up Plan Follow-up with primary care physician in 1 week Primary Care Provider Krishna Mauricio Time spent on discharge: > 30 minutes Copies To: CC: ALMA SECOBAR MD ; JULIANA CANCHOLA MD Jul 08, 2018 12:40
--- NOTE | 2018-07-08 12:40 | PDOCDIS ---
Discharge Instructions DIAGNOSIS Discharge Diagnosis Recurrent small bowel obstruction; osteoporosis; compression fracture L5; history of inferior right pubic ramus fracture; anemia; cholelithiasis; diverticulosis coli; status post appendectomy; status post MYKE with BSO; status post laparotomy; status post other abdominal surgery; CONDITION [id number] Patient Condition: [id number] Fair HOME CARE INSTRUCTIONS: [id number] Diet Instructions: [id number] Regular ACTIVITY: [id number] Activity Restrictions: [id number] Slowly Increase Activity FOLLOW UP/APPOINTMENTS Follow-up Plan Follow-up with primary care physician in 1 week JULIANA CANCHOLA MD Jul 08, 2018 12:40
== END 2018-07-08 14:00 | disposition home or self-care (01) | DRG 390 ==
LOC: E/R 04:15 → 2NE 08:17
PROVIDERS: ADMIT Family Medicine; ATTEND Family Medicine
DX: K56.609 Unspecified intestinal obstruction, unspecified as to partial versus complete obstruction (principal); K57.90 Diverticulosis of intestine, part unspecified, without perforation or abscess without bleeding; K80.20 Calculus of gallbladder without cholecystitis without obstruction; I70.90 Unspecified atherosclerosis; D64.9 Anemia, unspecified; M81.0 Age-related osteoporosis without current pathological fracture
CPT/HCPCS: 36415; 74018; 74019; 74177; 74250; 80048; 80053; 81003; 83036; 83690; 83735; 85025; 87045; 87086; 87177; 96361; 96374; 96375; 96376; J1170; J2270; J2405; J7030; Q9967

== ENCOUNTER 2018-09-06 21:24 | Inpatient (IN) | payer OTHER ==
[~2018-09-06] VITALS: Ht 157.5 cm; Wt 60.4 kg
[~2018-09-06 21:24] MED LIST changes: +ALEN70TA5 PO; -IBUP-1982 PO; +POLY17PO28 PO; +VIT1CAPS42 PO
[2018-09-06 21:29] VITALS: Ht 157.5 cm; Wt 60.4 kg
[2018-09-06] MEDS ORDERED: ONDANSETRON 4 MG INJ IV STA (22:52)
[2018-09-06] MEDS ORDERED: morphine 4 MG/ML VIAL IV STA (23:55)
[2018-09-07] MEDS ORDERED: ONDANSETRON 4 MG INJ IV PRN ×2 (03:00→07:00)
[2018-09-07] MEDS ORDERED: ACETAMINOPHEN 325 MG TAB PO PRN (03:00)
[2018-09-07] MEDS ORDERED: ONDANSETRON 4 MG INJ IV STA (03:25)
[2018-09-07] MEDS ORDERED: morphine 4 MG/ML VIAL IV STA (03:25)
[2018-09-07] MEDS ORDERED: LIDOCAINE 2% VISC 15 ML CUP PO ONE (03:30)
[2018-09-07 04:15] VITALS: BP 130/78; PULSE 130; RESP 18
--- NOTE | 2018-09-07 05:28 | ERD ---
ER Documentation Chief Complaint Chief Complaint abdominal pain/nausea since last night HPI This is a 73-year-old female with a past medical history of cervical cancer status post radiation therapy and total abdominal hysterectomy/bilateral salpingo-oophorectomy with significant intra-abdominal scarring and adhesions, complicated by recurrent small bowel obstructions who is presenting with concerns of a small bowel obstruction today. The patient reports having had diarrhea recently and decreased stool output. The patient did have a bowel movement this morning, but she endorses it was a little bit harder than usual. The patient endorses generalized cramping aching gnawing abdominal pain that has been constant and progressively worse over the last day. She also endorses nausea but no vomiting. She denies dysuria or hematuria or urgency or frequency. The patient denies feeling sick recently. The patient denies fever or chills. The patient has had no headache or vision changes. The patient does not endorse neck or back pain. The patient denies lightheadedness or dizziness. The patient has had no chest pain or trouble breathing. The patient has had no focal deficits. The patient has had no weakness or numbness or tingling to the face or extremities. ROS All systems reviewed and are negative except as per history of present illness. Medications Home Meds Reported Medications Vit C/E/Zn/Coppr/Lutein/Zeaxan (Preservision Areds 2 Softgel) 1 Each Capsule, 1 EACH PO PC BREAKFAST, CAP 09/07/18 Polyethylene Glycol* (Polyethylene Glycol*) 17 Gm Powd.pack, 17 GM PO DAILY for 30 Days, #30 07/06/18 Alendronate Sodium* (Fosamax*) 70 Mg Tablet, 70 MG PO Q7D for QTHU for 60 Days 07/06/18 [place]-3 Fatty Acids/Fish Oil (Fish Oil 1,000 mg Capsule) 1 Each Capsule, 1 EACH PO DAILY, CAP 03/30/18 Multivitamins* (Theragran*) 1 Tab Tab, 1 TAB PO DAILY, TAB 08/19/17 Allergies Allergies: Coded Allergies: No Known Allergies (Unverified Allergy, Mild, 07/06/18) PMhx/Soc History of Surgery: Yes (Sx for cervical cancer) Anesthesia Reaction: No Hx 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 Disorder: No Hx Respiratory Disorders: No Hx Cardiac Disorders: No Hx Psychiatric Problems: No Hx Miscellaneous Medical Probl: Yes (cervical cancer, small bowel obstructions) Hx Alcohol Use: No Hx Substance Use: No Hx Tobacco Use: No Smoking Status: Never smoker FmHx Family History: No diabetes Physical Exam Vitals Vital Signs Date Temp Pulse Resp B/P (MAP) Pulse Ox O2 O2 Flow FiO2 Time Delivery Rate 09/07/18 97.6 70 17 121/74 97 Room Air 00:55 (90) 09/07/18 98.8 76 18 135/90 95 Room Air 00:07 (105) 09/06/18 98.7 78 18 154/80 98 21:29 (104) Physical Exam Const: No acute distress Head: Atraumatic Eyes: Normal Conjunctiva ENT: Normal External Ears, Nose and Mouth. Neck: Full range of motion. No meningismus. Resp: Clear to auscultation bilaterally Cardio: Regular rate and rhythm, no murmurs Abd: Mild general tenderness. No guarding or rebound. Nondistended. Normal bowel sounds Skin: No petechiae or rashes Back: No midline or flank tenderness Ext: No cyanosis, or edema Neur: Awake and alert Psych: Normal Mood and Affect Result Diagram: 09/07/1872409/07/18724 Results 24 hrs Laboratory Tests Test 09/06/18 23:10 White Blood Count 6.0 10^3/ul Red Blood Count 3.76 10^6/ul Hemoglobin 11.6 g/dl Hematocrit 34.7 % Mean Corpuscular Volume 92.3 fl Mean Corpuscular Hemoglobin 30.9 pg Mean Corpuscular Hemoglobin Concent 33.4 g/dl Red Cell Distribution Width 14.4 % Platelet Count 260 10^3/UL Mean Platelet Volume 9.9 fl Immature Granulocytes % 0.200 % Neutrophils % 79.4 % Lymphocytes % 14.6 % Monocytes % 5.4 % Eosinophils % 0.2 % Basophils % 0.2 % Nucleated Red Blood Cells % 0.0 /100WBC Immature Granulocytes # 0.010 10^3/ul Neutrophils # 4.7 10^3/ul Lymphocytes # 0.9 10^3/ul Monocytes # 0.3 10^3/ul Eosinophils # 0.0 10^3/ul Basophils # 0.0 10^3/ul Nucleated Red Blood Cells # 0.0 10^3/ul Urine Color YELLOW Urine Clarity CLEAR Urine pH 7.0 Urine Specific [place] 1.011 Urine Ketones 1+ mg/dL Urine Nitrite NEGATIVE mg/dL Urine Bilirubin NEGATIVE mg/dL Urine Urobilinogen NEGATIVE mg/dL Urine Leukocyte Esterase NEGATIVE [place]/ul Urine Hemoglobin NEGATIVE mg/dL Urine Glucose NEGATIVE mg/dL Urine Total Protein NEGATIVE mg/dl Sodium Level 134 mmol/L Potassium Level 4.0 mmol/L Chloride Level 96 mmol/L Carbon Dioxide Level 28 mmol/L Anion Gap 10 Blood Urea Nitrogen 12 mg/dl Creatinine 0.70 mg/dl Est Glomerular Filtrat Rate mL/min mL/min Glucose Level 121 mg/dl Calcium Level 9.9 mg/dl Total Bilirubin 1.1 mg/dl Direct Bilirubin 0.00 mg/dl Indirect Bilirubin 1.1 mg/dl Aspartate Amino Transf (AST/SGOT) 28 IU/L Alanine Aminotransferase (ALT/SGPT) 24 IU/L Alkaline Phosphatase 66 IU/L Total Protein 8.1 g/dl Albumin 4.7 g/dl Globulin 3.40 g/dl Albumin/Globulin Ratio 1.38 Lipase 66 U/L Current Medications Medications Dose Sig/[place] Start Time Status Last (Trade) Ordered Route PRN Stop Time Admin Dose Reason Admin Ondansetron 4 mg ONCE STAT 09/06/18 DC 09/06/18 HCl (Zofran IV 22:52 23:21 Inj) 09/06/18 22:53 Morphine 4 mg ONCE STAT 09/06/18 DC 09/07/18 Sulfate IV 23:55 00:02 (morphine) 09/06/18 23:56 Procedures/MDM MDM The patient's presentation warrants further investigation. Previous medical records, if available, were reviewed. LABS The patient's laboratory testing was obtained and reviewed. No emergent treatment was required unless described below. CBC: Normocytic anemia, not emergent. No E/o systemic infection or thrombocytopenia Chemistry: No E/o severe acidosis or alkalosis or renal failure or liver disease or diabetic ketoacidosis Lipase: No E/o pancreatitis Urine: No E/o acute infection or hematuria IMAGING Imaging and Radiology interpretation reviewed. CXR FINDINGS: There has been interval placement of a nasogastric tube with the tip looped in the gastric fundus region. The cardiomediastinal silhouette is within normal limits. The thoracic aortic arch is calcified. There is a shallow inspiration. There is minimal left basilar subsegmental atelectasis. There is no evidence for focal consolidation. There is no evidence for congestive heart som lure. There is no evidence for pneumothorax. Surgical clips are seen within the right upper quadrant of the abdomen. The osseous structures are intact. IMPRESSION: 1. Nasogastric tube are in place. 2. Calcified thoracic aortic arch. 3. Shallow inspiration with minimal left basilar subsegmental atelectasis. Electronically viewed and signed by .Quan Foley MD, on 09/07/2018 04:14 KUB FINDINGS: Medical devices: None. There is a mildly dilated loop of small bowel in the left lower quadrant of the abdomen that measures 4 cm. There is gas and stool in nondistended colon. There are multiple surgical clips over the central abdomen and pelvis as before. Round calcifications in the pelvis resemble phleboliths. There is an old fracture deformity of the right obturator ring. No acute bony abnormality. Additional comment: None. IMPRESSION: 1. Dilated loop of small bowel in the left lower quadrant of the abdomen is nonspecific and could be due to partial obstruction or dysmotility. 2. Evaluation for free intraperitoneal air and air-fluid levels is limited on a supine film. If there is an acute abdomen and concern for free air, recommend further evaluation with a decubitus view or upright chest x-ray. An upright or decubitus view could also better evaluate for fluid levels in the setting of bowel obstruction. Electronically viewed and signed by Physician Georgina on 09/07/2018 01:22 CT abdomen pelvis FINDINGS: Again noted are multiple ventral wall fat containing hernias without herniated bowel or strangulation. Moderate dilated loops of small bowel seen within the left abdomen with normal-caliber more proximal small bowel and duodenum and distal small bowel consistent with partial moderate closed loop small bowel obstruction. Findings appears similar to the previous study. Stomach unremarkable. Scattered colonic diverticular changes but no CT evidence di verticulitis. A definite appendix is not visualized however no CT evidence of appendicitis. Surgical clips in the right left pelvis. Surgical clips seen along the right and left psoas muscles. The kidneys are normal in size without calculi or intra renal masses bilaterally. Bilateral pelvocaliectasis and prominent proximal ureters but no obstructing lesions demonstrated unchanged. Urinary bladder are unremarkable. Status post hysterectomy. No adnexal masses. No evidence of intra-abdominal free air, free fluid, abscesses or lymphadenopathy. Liver spleen pancreas adrenal glands and gallbladder are marked. No evidence biliary ductal dilation. Bilateral chronic parenchymal lung disease and cylin drical bronchiectasis. Calcific atherosclerosis of the aorta without aneurysm. Chronic L5 compression fracture. Old fracture deformity of the medial right superior and inferior pubic rami. Degenerate changes of the lower thoracic and lumbar spine. No acute osseous findings are osteoblastic/osteolytic lesions. IMPRESSION: 1. Moderate partial closed loop small bowel obstruction within the left abd ominal cavity as described above that appears similar to the previous CT abdomen pelvis 07/06/2018. 2. Colonic diverticulosis without CT evidence diverticulitis. No evidence of appendicitis. 3. Bilateral small mild pelvocaliectasis and prominent proximal ureters slightly more prominent left without obstructing lesions unchanged. 4. Status post prior hysterectomy. 5. Multiple midline ventral abdominal wall fat containing hernias without herniated bowel or strangulation. Electronically viewed and signed by Geovanni Slaughter Physician on 09/07/2018 02:46 TREATMENT/DISPOSITION The patient's symptoms are consistent with a partial small bowel obstruction likely due to adhesions from her past abdominal surgeries. The patient has recurrent small bowel obstructions, and her CT is similar in appearance as previous studies. An NG tube was placed. General surgery was consulted. The patient does have general abdominal discomfort no exquisite focal tenderness. I do not see any evidence of viscus perforation. The patient does not have any evidence of peritonitis. The patient does not have clinical symptoms concerning for mesenteric ischemia or ischemic colitis. There is evidence of diverticulosis on the CT without diverticulitis. The patient does not have appendicitis. The patient does have fat-containing hernias in the abdominal wall without herniation or strangulation. I have low suspicion for gallstones, cholecystitis or biliary colic. I have low suspicion for gastritis, PUD or GERD. The patient does not have left upper quadrant tenderness. I have low suspicion for pancreatitis. Patient's urinalysis is normal. The patient does have chronic suprapubic tenderness, but I have decreased suspicion for cystitis. The patient does not have any flank tenderness. The patient does not have gross hematuria. I have decreased suspicion for nephrolithiasis or renal colic. The patient does not have any palpable pulsatile mass or severe abdominal pain radiating to the back. I have low suspicion for aortic aneurysm, dissection or rupture. The patient was treated with morphine and zofran for symptoms control. ADMISSION At this time, I feel that the patient requires admission for further evaluation and management. The patient will be admitted to Panel in accordance with the patient's insurance. The patient was accepted by Dr. Sauer at 0253AM on 09/07/[address] Figueroa was consulted on the case and will assess the patient in the hospital. DISCLAIMER Inadvertent spelling and grammatical errors are likely due to EHR/dictation software use and do not reflect on the overall quality of patient care. Note that the electronic time recorded on this note does not necessarily reflect the actual time of the patient encounter. Departure Diagnosis: Primary Impression: SBO (small bowel obstruction) Additional Impressions: Abdominal pain Abdominal location: generalized Qualified Codes: R10.84 - Generalized abdominal pain Nausea & vomiting Vomiting type: unspecified Vomiting Intractability: non-intractable Qualified Codes: R11.2 - Nausea with vomiting, unspecified Normocytic anemia H/O of hysterectomy with bilateral oophorectomy Diverticulosis Abdominal wall hernia History of cervical cancer in adulthood Condition: Serious NEPTALI MALDONADO MD Sep 07, 2018 05:28
[2018-09-07] MEDS ORDERED: morphine 4 MG/ML VIAL IV PRN (05:30)
[2018-09-07] MEDS: DEXTROSE 5%-0.45% NACL 1,000 ML IV SCH ×2 (05:31→18:07)
[2018-09-07] MEDS ORDERED: NACL 0.9% 3 ML SYG IV SCH (07:00)
[2018-09-07] MEDS ORDERED: ALBUTEROL/IPRATROPIUM (NEB) 3 ML AMP HHN PRN (07:00)
[2018-09-07 08:00] VITALS: BP 114/69; PULSE 86; RESP 18
--- NOTE | 2018-09-07 08:14 | HP ---
Date/Time of Note Date/Time of Note DATE: 09/07/18 TIME: 08:08 Assessment/Plan VTE Prophylaxis Pharmacological prophylaxis: heparin Lines/Catheters IV Catheter Type (from Nrsg): Peripheral IV Assessment/Plan Assessment/Plan 1. Recurrent SBO -Patient with a history of cervical cancer status post hysterectomy in 2009 -NG tube to low intermittent suction -Antiemetics and pain meds as needed -Awaiting surgical eval 2. History of cervical cancer, status post hysterectomy and chemo/radiation in 2009 3. Mild hyponatremia: Likely secondary to dehydration -NS IVF 4. Normocytic anemia: Most likely secondary to anemia of chronic disease -Monitor H&H. Transfuse as needed Result Diagram: 09/07/18 0725 09/06/18 2310 Results 24hrs Laboratory Tests Test 09/06/18 23:10 09/07/18 07:25 White Blood Count 6.0 # 2.5 #L Red Blood Count 3.76 L 3.66 L Hemoglobin 11.6 L 11.2 L Hematocrit 34.7 L 35.2 L Mean Corpuscular Volume 92.3 96.2 Mean Corpuscular Hemoglobin 30.9 30.6 Mean Corpuscular Hemoglobin Concent 33.4 31.8 L Red Cell Distribution Width 14.4 14.5 Platelet Count 260 132 #L Mean Platelet Volume 9.9 12.6 #H Immature Granulocytes % 0.200 0.000 L Neutrophils % 79.4 H 54.2 Lymphocytes % 14.6 L 31.3 Monocytes % 5.4 13.3 H Eosinophils % 0.2 0.8 Basophils % 0.2 0.4 Nucleated Red Blood Cells % 0.0 0.0 Immature Granulocytes # 0.010 0.000 Neutrophils # 4.7 1.4 L Lymphocytes # 0.9 0.8 Monocytes # 0.3 0.3 Eosinophils # 0.0 0.0 Basophils # 0.0 0.0 Nucleated Red Blood Cells # 0.0 0.0 Urine Color YELLOW Urine Clarity CLEAR Urine pH 7.0 Urine Specific [place] 1.011 Urine Ketones 1+ H Urine Nitrite NEGATIVE Urine Bilirubin NEGATIVE Urine Urobilinogen NEGATIVE Urine Leukocyte Esterase NEGATIVE Urine Hemoglobin NEGATIVE Urine Glucose NEGATIVE Urine Total Protein NEGATIVE Sodium Level 134 L Potassium Level 4.0 Chloride Level 96 L Carbon Dioxide Level 28 Anion Gap 10 Blood Urea Nitrogen 12 Creatinine 0.70 Est Glomerular Filtrat Rate mL/min Glucose Level 121 Calcium Level 9.9 Total Bilirubin 1.1 Direct Bilirubin 0.00 Indirect Bilirubin 1.1 Aspartate Amino Transf (AST/SGOT) 28 Alanine Aminotransferase (ALT/SGPT) 24 Alkaline Phosphatase 66 Total Protein 8.1 Albumin 4.7 Globulin 3.40 H Albumin/Globulin Ratio 1.38 Lipase 66 HPI/ROS Admit Date/Time Admit Date/Time Sep 07, 2018 at 02:55 Hx of Present Illness Patient is a 73-year-old female with a history of cervical cancer status post hysterectomy, chemo/radiation in 2009, history of multiple recurrent SBOs. Patient presented to ER complaining of abdominal pain/distention x1 day. Chester nogueira has been admitted here multiple times for similar symptoms related to SBO. Last admission was in June of this year. At that time she once again was conservatively managed. She said she had bowel movement yesterday morning and around the same time, she noticed abdominal pain and distention. When presented to ER, vitals were stable. CT abdomen/pelvis showed moderate partial closed loop small bowel obstruction within the left abdominal cavity as described above that appears similar to the previous CT abdomen pelvis 07/06/2018. PMH/Family/Social Past Medical History Medical History: other (See HPI) Medications Current Medications Ondansetron HCl (Zofran Inj) 4 mg BRIDGE ORDER PRN IV NAUSEA/VOMITING; Start 09/07/18 at 03:00; Stop 09/08/18 at 02:59 Acetaminophen (Tylenol Tab) 650 mg ER BRIDGE PRN PO .MILD PAIN 1-3 OR TEMP; Start 09/07/18 at 03:00; Stop 09/08/18 at 02:59 Dextrose/Sodium Chloride 1,000 ml @ 100 mls/hr Q10H IV Last administered on 09/07/18at 05:31; Admin Dose 100 MLS/HR; Start 09/07/18 at 05:30 Morphine Sulfate (morphine) 3 mg Q3H PRN IV SEVERE PAIN LEVEL 7-10; Start 09/07/18 at 05:30 IV Flush (NS 3 ml) 3 ml PER PROTOCOL IV ; Start 09/07/18 at 07:00 Ondansetron HCl (Zofran Inj) 4 mg Q6H PRN IV NAUSEA/VOMITING; Start 09/07/18 at 07:00 Albuterol/ Ipratropium (Duoneb) 3 ml Q2H RESP THERAPY PRN HHN SHORTNESS OF BREATH; Start 09/07/18 at 07:00 Coded Allergies: No Known Allergies (Unverified Allergy, Mild, 07/06/18) Family History Significant Family History: no pertinent family hx Social History Alcohol Use: none Smoking Status: Never smoker Drug Use: none Exam/Review of Systems Vital Signs Vitals Vital Signs Date Temp Pulse Resp B/P (MAP) Pulse Ox O2 O2 Flow FiO2 Time Delivery Rate 09/07/18 98.4 130 18 130/78 96 04:15 (95) 09/07/18 Room Air 03:33 Exam Constitutional: alert, oriented, well developed Head: normocephalic, atraumatic Eyes: EOMI, PERRL Respiratory: clear to auscultation, normal air movement Cardiovascular: regular rate and rhythm, nl pulses Gastrointestinal: soft, tender Extremities: normal pulses DORETHA CASANOVA MD Sep 07, 2018 08:14
--- NOTE | 2018-09-07 09:51 | CONS ---
Assessment/Plan Assessment/Plan Hospital Course (Demo Recall) 1. Moderate partial closed-loop small bowel obstruction: Recurrent SBO -SBFT -Strict n.p.o. -NGT to [facility] RHOADES 2. Abdominal pain: -Pain management -As above 3.Hyponatremia: Resolved 4. Normocytic normochromic anemia: -Monitor and transfuse as needed 5. Leukopenia: -Monitor 6. Thrombocytopenia: -Bleeding precautions 7. Ventral hernia: Asymptomatic -Monitor 8. History of cervical cancer status post chemotherapy and radiation: -Oncology follow-up 9. Colonic diverticulosis: -Lifestyle optimization Thank you. Patient seen and examined in collaboration with Dr. Lars Figueroa. Consultation Date/Type/Reason Admit Date/Time Sep 07, 2018 at 02:55 Date of Consultation: Sep 07, 2018 Type of Consult surgical Reason for Consultation sbo Requesting Provider: DORETHA CASANOVA MD Date/Time of Note DATE: 09/07/18 TIME: 09:30 Hx of Present Illness Annette Francois is a 73 yo with pmh of 7 abdominal surgeries (bilateral oopherectomy, hysterectomy, tumor removal), cervical cancer sp chemotherapy and radiation, multiple small bowel obstructions, who presented with reports of abdominal pain. Abdominal pain is predominantly in bilateral lower quadrants, cramping in nature. Associated symptoms include bloating and nausea. No reported vomiting, fevers, chills, congested cough, chest pain, palpitations, diarrhea, neuro symptoms, skin changes. Notably, she had soft bowel movement yesterday however has not had any flatus. CT imaging of the abdomen shows moderate dilated loops of bowel within the left abdomen consistent with moderate partial closed-loop small bowel obstruction. Laboratory findings were unremarkable initially, however currently has leukopenia. General surgery was asked to evaluate. 12 point review of systems was performed and is negative except for as stated in HPI. Past Medical History As above Medical History: other (See HPI) Home Meds Reported Medications Vit C/E/Zn/Coppr/Lutein/Zeaxan (Preservision Areds 2 Softgel) 1 Each Capsule, 1 EACH PO PC BREAKFAST, CAP 09/07/18 Polyethylene Glycol* (Polyethylene Glycol*) 17 Gm Powd.pack, 17 GM PO DAILY for 30 Days, #30 07/06/18 Alendronate Sodium* (Fosamax*) 70 Mg Tablet, 70 MG PO Q7D for QTHURSDAY for 60 Days 5/30/19 [place]-3 Fatty Acids/Fish Oil (Fish Oil 1,000 mg Capsule) 1 Each Capsule, 1 EACH PO DAILY, CAP 03/30/18 Multivitamins* (Theragran*) 1 Tab Tab, 1 TAB PO DAILY, TAB 08/19/17 Medications Current Medications Ondansetron HCl (Zofran Inj) 4 mg BRIDGE ORDER PRN IV NAUSEA/VOMITING; Start 09/07/18 at 03:00; Stop 09/08/18 at 02:59 Acetaminophen (Tylenol Tab) 650 mg ER BRIDGE PRN PO .MILD PAIN 1-3 OR TEMP; Start 09/07/18 at 03:00; Stop 09/08/18 at 02:59 Dextrose/Sodium Chloride 1,000 ml @ 100 mls/hr Q10H IV Last administered on 09/07/18at 05:31; Admin Dose 100 MLS/HR; Start 09/07/18 at 05:30 Morphine Sulfate (morphine) 3 mg Q3H PRN IV SEVERE PAIN LEVEL 7-10; Start 09/07/18 at 05:30 IV Flush (NS 3 ml) 3 ml PER PROTOCOL IV ; Start 09/07/18 at 07:00 Ondansetron HCl (Zofran Inj) 4 mg Q6H PRN IV NAUSEA/VOMITING; Start 09/07/18 at 07:00 Albuterol/ Ipratropium (Duoneb) 3 ml Q2H RESP THERAPY PRN HHN SHORTNESS OF BREATH; Start 09/07/18 at 07:00 Allergies: Coded Allergies: No Known Allergies (Unverified Allergy, Mild, 07/06/18) Past Surgical History As above Family History Significant Family History: no pertinent family hx Social History Alcohol Use: none Smoking Status: Never smoker Drug Use: none Exam/Review of Systems Exam Vitals Vital Signs Date Temp Pulse Resp B/P (MAP) Pulse Ox O2 O2 Flow FiO2 Time Delivery Rate 09/07/18 98.6 86 18 114/69 96 08:00 (84) 09/07/18 Room Air 03:33 Constitutional: alert, oriented, well developed Psych: nl mood/affect; No anxiety Head: normocephalic, atraumatic Eyes: nl conjunctiva, EOMI, nl lids, nl sclera ENMT: nl external ears & nose, nl lips & teeth, mucosa pink and moist, other (NGT) Neck: supple, non-tender; No jvd Respiratory: normal air movement; No congested cough Cardiovascular: regular rate and rhythm, nl pulses; No edema Gastrointestinal: soft, distended, tender (Bilateral lower quadrants), other (Ventral hernia; no abdominal skin changes); No firm, No rebound or guarding Genitourinary - Female: nl external genitalia Musculoskeletal: nl extremities to inspection; No nl gait and stance Extremities: normal pulses 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: nl mental status, nl speech, nl strength Skin: nl turgor; No rash or lesions Lymph: nl lymph nodes Results Result Diagram: 09/07/18 0725 09/07/18 0725 Results 24hrs Laboratory Tests Test 09/06/18 23:10 09/07/18 07:25 White Blood Count 6.0 # 2.5 #L Red Blood Count 3.76 L 3.66 L Hemoglobin 11.6 L 11.2 L Hematocrit 34.7 L 35.2 L Mean Corpuscular Volume 92.3 96.2 Mean Corpuscular Hemoglobin 30.9 30.6 Mean Corpuscular Hemoglobin Concent 33.4 31.8 L Red Cell Distribution Width 14.4 14.5 Platelet Count 260 132 #L Mean Platelet Volume 9.9 12.6 #H Immature Granulocytes % 0.200 0.000 L Neutrophils % 79.4 H 54.2 Lymphocytes % 14.6 L 31.3 Monocytes % 5.4 13.3 H Eosinophils % 0.2 0.8 Basophils % 0.2 0.4 Nucleated Red Blood Cells % 0.0 0.0 Immature Granulocytes # 0.010 0.000 Neutrophils # 4.7 1.4 L Lymphocytes # 0.9 0.8 Monocytes # 0.3 0.3 Eosinophils # 0.0 0.0 Basophils # 0.0 0.0 Nucleated Red Blood Cells # 0.0 0.0 Urine Color YELLOW Urine Clarity CLEAR Urine pH 7.0 Urine Specific [place] 1.011 Urine Ketones 1+ H Urine Nitrite NEGATIVE Urine Bilirubin NEGATIVE Urine Urobilinogen NEGATIVE Urine Leukocyte Esterase NEGATIVE Urine Hemoglobin NEGATIVE Urine Glucose NEGATIVE Urine Total Protein NEGATIVE Sodium Level 134 L 138 Potassium Level 4.0 4.5 Chloride Level 96 L 101 Carbon Dioxide Level 28 27 Anion Gap 10 10 Blood Urea Nitrogen 12 11 Creatinine 0.70 0.55 Est Glomerular Filtrat Rate mL/min Glucose Level 121 122 Calcium Level 9.9 9.2 Total Bilirubin 1.1 Direct Bilirubin 0.00 Indirect Bilirubin 1.1 Aspartate Amino Transf (AST/SGOT) 28 Alanine Aminotransferase (ALT/SGPT) 24 Alkaline Phosphatase 66 Total Protein 8.1 Albumin 4.7 Globulin 3.40 H Albumin/Globulin Ratio 1.38 Lipase 66 Phosphorus Level 4.4 Magnesium Level 1.9 Medications Medication Current Medications Ondansetron HCl (Zofran Inj) 4 mg BRIDGE ORDER PRN IV NAUSEA/VOMITING; Start 09/07/18 at 03:00; Stop 09/08/18 at 02:59 Acetaminophen (Tylenol Tab) 650 mg ER BRIDGE PRN PO .MILD PAIN 1-3 OR TEMP; Start 09/07/18 at 03:00; Stop 09/08/18 at 02:59 Dextrose/Sodium Chloride 1,000 ml @ 100 mls/hr Q10H IV Last administered on 09/07/18at 05:31; Admin Dose 100 MLS/HR; Start 09/07/18 at 05:30 Morphine Sulfate (morphine) 3 mg Q3H PRN IV SEVERE PAIN LEVEL 7-10; Start 09/07/18 at 05:30 IV Flush (NS 3 ml) 3 ml PER PROTOCOL IV ; Start 09/07/18 at 07:00 Ondansetron HCl (Zofran Inj) 4 mg Q6H PRN IV NAUSEA/VOMITING; Start 09/07/18 at 07:00 Albuterol/ Ipratropium (Duoneb) 3 ml Q2H RESP THERAPY PRN HHN SHORTNESS OF BREATH; Start 09/07/18 at 07:00 BELKIS AMARO NP Sep 07, 2018 09:45
[2018-09-07] MEDS ORDERED: IOHEXOL 300MG/ML 150 ML BTL ONE ×5 (10:43→13:55)
--- NOTE | 2018-09-07 12:05 | PN ---
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 Continue n.p.o. for now. Continue IV fluids #History of cervical cancer status post hysterectomy and chemo/radiation in 2009 Patient for outpatient follow-up #Mild hyponatremia Continue IV fluids #Normocytic anemia. Monitor H&H. Stable at present #Leukopenia Etiology unknown Monitor trend. Monitor for fevers Disposition and plan. Monitor for clinical improvement. Continue IV fluids. Continue with analgesics as needed. Discussed POC with Dr. Gandara . Result Diagram: 09/07/18 0725 09/07/18 0725 Results 24hrs Laboratory Tests Test 09/06/18 23:10 09/07/18 07:25 White Blood Count 6.0 # 2.5 #L Red Blood Count 3.76 L 3.66 L Hemoglobin 11.6 L 11.2 L Hematocrit 34.7 L 35.2 L Mean Corpuscular Volume 92.3 96.2 Mean Corpuscular Hemoglobin 30.9 30.6 Mean Corpuscular Hemoglobin Concent 33.4 31.8 L Red Cell Distribution Width 14.4 14.5 Platelet Count 260 132 #L Mean Platelet Volume 9.9 12.6 #H Immature Granulocytes % 0.200 0.000 L Neutrophils % 79.4 H 54.2 Lymphocytes % 14.6 L 31.3 Monocytes % 5.4 13.3 H Eosinophils % 0.2 0.8 Basophils % 0.2 0.4 Nucleated Red Blood Cells % 0.0 0.0 Immature Granulocytes # 0.010 0.000 Neutrophils # 4.7 1.4 L Lymphocytes # 0.9 0.8 Monocytes # 0.3 0.3 Eosinophils # 0.0 0.0 Basophils # 0.0 0.0 Nucleated Red Blood Cells # 0.0 0.0 Urine Color YELLOW Urine Clarity CLEAR Urine pH 7.0 Urine Specific [place] 1.011 Urine Ketones 1+ H Urine Nitrite NEGATIVE Urine Bilirubin NEGATIVE Urine Urobilinogen NEGATIVE Urine Leukocyte Esterase NEGATIVE Urine Hemoglobin NEGATIVE Urine Glucose NEGATIVE Urine Total Protein NEGATIVE Sodium Level 134 L 138 Potassium Level 4.0 4.5 Chloride Level 96 L 101 Carbon Dioxide Level 28 27 Anion Gap 10 10 Blood Urea Nitrogen 12 11 Creatinine 0.70 0.55 Est Glomerular Filtrat Rate mL/min Glucose Level 121 122 Calcium Level 9.9 9.2 Total Bilirubin 1.1 Direct Bilirubin 0.00 Indirect Bilirubin 1.1 Aspartate Amino Transf (AST/SGOT) 28 Alanine Aminotransferase (ALT/SGPT) 24 Alkaline Phosphatase 66 Total Protein 8.1 Albumin 4.7 Globulin 3.40 H Albumin/Globulin Ratio 1.38 Lipase 66 Phosphorus Level 4.4 Magnesium Level 1.9 Subjective 24 Hr Interval Summary Free Text/Dictation patient still with abdominal discomfort. reports unable to pass gas Exam/Review of Systems Exam Vitals Vital Signs Date Temp Pulse Resp B/P (MAP) Pulse Ox O2 O2 Flow FiO2 Time Delivery Rate 09/07/18 98.6 86 18 114/69 96 08:00 (84) 09/07/18 Room Air 03:33 Constitutional: alert, oriented Psych: nl mood/affect Head: normocephalic Eyes: nl conjunctiva Respiratory: clear to auscultation, normal air movement Cardiovascular: regular rate and rhythm Gastrointestinal: soft, other (minimally tender, hypoactive bowel sounds ) Musculoskeletal: nl extremities to inspection 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: TMH TEACHER II-XII intact, nl mental status, nl speech Skin: nl turgor Results Results 24hrs Laboratory Tests Test 09/06/18 23:10 09/07/18 07:25 White Blood Count 6.0 # 2.5 #L Red Blood Count 3.76 L 3.66 L Hemoglobin 11.6 L 11.2 L Hematocrit 34.7 L 35.2 L Mean Corpuscular Volume 92.3 96.2 Mean Corpuscular Hemoglobin 30.9 30.6 Mean Corpuscular Hemoglobin Concent 33.4 31.8 L Red Cell Distribution Width 14.4 14.5 Platelet Count 260 132 #L Mean Platelet Volume 9.9 12.6 #H Immature Granulocytes % 0.200 0.000 L Neutrophils % 79.4 H 54.2 Lymphocytes % 14.6 L 31.3 Monocytes % 5.4 13.3 H Eosinophils % 0.2 0.8 Basophils % 0.2 0.4 Nucleated Red Blood Cells % 0.0 0.0 Immature Granulocytes # 0.010 0.000 Neutrophils # 4.7 1.4 L Lymphocytes # 0.9 0.8 Monocytes # 0.3 0.3 Eosinophils # 0.0 0.0 Basophils # 0.0 0.0 Nucleated Red Blood Cells # 0.0 0.0 Urine Color YELLOW Urine Clarity CLEAR Urine pH 7.0 Urine Specific [place] 1.011 Urine Ketones 1+ H Urine Nitrite NEGATIVE Urine Bilirubin NEGATIVE Urine Urobilinogen NEGATIVE Urine Leukocyte Esterase NEGATIVE Urine Hemoglobin NEGATIVE Urine Glucose NEGATIVE Urine Total Protein NEGATIVE Sodium Level 134 L 138 Potassium Level 4.0 4.5 Chloride Level 96 L 101 Carbon Dioxide Level 28 27 Anion Gap 10 10 Blood Urea Nitrogen 12 11 Creatinine 0.70 0.55 Est Glomerular Filtrat Rate mL/min Glucose Level 121 122 Calcium Level 9.9 9.2 Total Bilirubin 1.1 Direct Bilirubin 0.00 Indirect Bilirubin 1.1 Aspartate Amino Transf (AST/SGOT) 28 Alanine Aminotransferase (ALT/SGPT) 24 Alkaline Phosphatase 66 Total Protein 8.1 Albumin 4.7 Globulin 3.40 H Albumin/Globulin Ratio 1.38 Lipase 66 Phosphorus Level 4.4 Magnesium Level 1.9 Medications Medication Current Medications Ondansetron HCl (Zofran Inj) 4 mg BRIDGE ORDER PRN IV NAUSEA/VOMITING; Start 09/07/18 at 03:00; Stop 09/08/18 at 02:59 Acetaminophen (Tylenol Tab) 650 mg ER BRIDGE PRN PO .MILD PAIN 1-3 OR TEMP; Start 09/07/18 at 03:00; Stop 09/08/18 at 02:59 Dextrose/Sodium Chloride 1,000 ml @ 100 mls/hr Q10H IV Last administered on 09/07/18at 05:31; Admin Dose 100 MLS/HR; Start 09/07/18 at 05:30 Morphine Sulfate (morphine) 3 mg Q3H PRN IV SEVERE PAIN LEVEL 7-10; Start 09/07/18 at 05:30 IV Flush (NS 3 ml) 3 ml PER PROTOCOL IV ; Start 09/07/18 at 07:00 Ondansetron HCl (Zofran Inj) 4 mg Q6H PRN IV NAUSEA/VOMITING; Start 09/07/18 at 07:00 Albuterol/ Ipratropium (Duoneb) 3 ml Q2H RESP THERAPY PRN HHN SHORTNESS OF BREATH; Start 09/07/18 at 07:00 VENICE VITALE NP Sep 07, 2018 12:05
[2018-09-07 14:00] VITALS: BP 115/55; PULSE 67; RESP 18
[2018-09-07 20:00] VITALS: BP 109/65; PULSE 72; RESP 18
[2018-09-08 02:00] VITALS: BP 102/67; PULSE 70; RESP 18
[2018-09-08] MEDS: DEXTROSE 5%-0.45% NACL 1,000 ML IV SCH ×3 (02:38→22:53)
[2018-09-08 08:00] VITALS: BP 101/55; PULSE 76; RESP 18
[2018-09-08] MEDS: ENOXAPARIN 40 MG/0.4 ML SYG SC SCH (08:53)
--- NOTE | 2018-09-08 12:37 | PN ---
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 Continue n.p.o. for now. Continue IV fluids Reports feeling better today - f/u surgeon for d/c NG tube and starting diet #History of cervical cancer status post hysterectomy and chemo/radiation in 2009 Patient for outpatient follow-up #Mild hyponatremia Continue IV fluids #Normocytic anemia. Monitor H&H. Stable at present #Leukopenia Etiology unknown Monitor trend. Monitor for fevers Disposition and plan. Appears to be improving. DC NG tube per surgeon, then Advance diet as tolerated. DC planning Discussed POC with Dr. Gandara . Result Diagram: 09/08/18 0544 09/08/18 0500 Results 24hrs Laboratory Tests Test 09/08/18 05:00 09/08/18 05:44 Sodium Level 138 Potassium Level 4.0 Chloride Level 102 Carbon Dioxide Level 30 Anion Gap 6 Blood Urea Nitrogen 12 Creatinine 0.69 Est Glomerular Filtrat Rate mL/min Glucose Level 120 Calcium Level 8.6 Phosphorus Level 3.2 Magnesium Level 1.9 Total Bilirubin 1.3 Direct Bilirubin 0.00 Indirect Bilirubin 1.3 H Aspartate Amino Transf (AST/SGOT) 22 Alanine Aminotransferase (ALT/SGPT) 16 Alkaline Phosphatase 49 Total Protein 6.8 # Albumin 3.8 Globulin 3.00 Albumin/Globulin Ratio 1.26 White Blood Count 2.6 L Red Blood Count 3.51 L Hemoglobin 10.8 L Hematocrit 33.3 L Mean Corpuscular Volume 94.9 Mean Corpuscular Hemoglobin 30.8 Mean Corpuscular Hemoglobin Concent 32.4 Red Cell Distribution Width 14.5 Platelet Count 251 # Mean Platelet Volume 9.7 # Immature Granulocytes % 0.000 L Neutrophils % 64.0 Lymphocytes % 27.7 Monocytes % 6.4 Eosinophils % 1.5 Basophils % 0.4 Nucleated Red Blood Cells % 0.0 Immature Granulocytes # 0.000 Neutrophils # 1.7 Lymphocytes # 0.7 L Monocytes # 0.2 L Eosinophils # 0.0 Basophils # 0.0 Nucleated Red Blood Cells # 0.0 Subjective 24 Hr Interval Summary Free Text/Dictation no s/s of distress. reports having bowel movement. reports less abd pain Exam/Review of Systems Exam Vitals Vital Signs Date Temp Pulse Resp B/P (MAP) Pulse Ox O2 O2 Flow FiO2 Time Delivery Rate 09/08/18 98.6 76 18 101/55 96 08:00 (70) 09/08/18 Room Air 02:00 Intake and Output 09/07/18 09/07/18 09/08/18 1515:00 23:00 07:00 IntakeIntake Total 1000 ml 1400 ml OutputOutput Total 3 ml BalanceBalance 997 ml 1400 ml Exam Constitutional: alert, oriented Psych: nl mood/affect Head: normocephalic Eyes: nl conjunctiva Respiratory: clear to auscultation, normal air movement Cardiovascular: regular rate and rhythm Gastrointestinal: soft, other (minimally tender, hypoactive bowel sounds ) Musculoskeletal: nl extremities to inspection 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: TONG SETTER II-XII intact, nl mental status, nl speech Skin: nl turgor Results Results 24hrs Laboratory Tests Test 09/08/18 05:00 09/08/18 05:44 Sodium Level 138 Potassium Level 4.0 Chloride Level 102 Carbon Dioxide Level 30 Anion Gap 6 Blood Urea Nitrogen 12 Creatinine 0.69 Est Glomerular Filtrat Rate mL/min Glucose Level 120 Calcium Level 8.6 Phosphorus Level 3.2 Magnesium Level 1.9 Total Bilirubin 1.3 Direct Bilirubin 0.00 Indirect Bilirubin 1.3 H Aspartate Amino Transf (AST/SGOT) 22 Alanine Aminotransferase (ALT/SGPT) 16 Alkaline Phosphatase 49 Total Protein 6.8 # Albumin 3.8 Globulin 3.00 Albumin/Globulin Ratio 1.26 White Blood Count 2.6 L Red Blood Count 3.51 L Hemoglobin 10.8 L Hematocrit 33.3 L Mean Corpuscular Volume 94.9 Mean Corpuscular Hemoglobin 30.8 Mean Corpuscular Hemoglobin Concent 32.4 Red Cell Distribution Width 14.5 Platelet Count 251 # Mean Platelet Volume 9.7 # Immature Granulocytes % 0.000 L Neutrophils % 64.0 Lymphocytes % 27.7 Monocytes % 6.4 Eosinophils % 1.5 Basophils % 0.4 Nucleated Red Blood Cells % 0.0 Immature Granulocytes # 0.000 Neutrophils # 1.7 Lymphocytes # 0.7 L Monocytes # 0.2 L Eosinophils # 0.0 Basophils # 0.0 Nucleated Red Blood Cells # 0.0 Medications Medication Current Medications Dextrose/Sodium Chloride 1,000 ml @ 100 mls/hr Q10H IV Last administered on 09/08/18at 12:33; Admin Dose 100 MLS/HR; Start 09/07/18 at 05:30 Morphine Sulfate (morphine) 3 mg Q3H PRN IV SEVERE PAIN LEVEL 7-10 Last administered on 09/07/18at 13:56; Admin Dose 3 MG; Start 09/07/18 at 05:30 IV Flush (NS 3 ml) 3 ml PER PROTOCOL IV ; Start 09/07/18 at 07:00 Ondansetron HCl (Zofran Inj) 4 mg Q6H PRN IV NAUSEA/VOMITING; Start 09/07/18 at 07:00 Albuterol/ Ipratropium (Duoneb) 3 ml Q2H RESP THERAPY PRN HHN SHORTNESS OF BREATH; Start 09/07/18 at 07:00 Enoxaparin Sodium (Lovenox) 40 mg DAILY SC Last administered on 09/08/18at 08:53; Admin Dose 40 MG; Start 09/08/18 at 09:00 VENICE VITALE NP Sep 08, 2018 12:37
--- NOTE | 2018-09-08 13:14 | PN ---
Date/Time of Note Date/Time of Note DATE: 09/08/18 TIME: 13:13 Assessment/Plan Lines/Catheters IV Catheter Type (from [facility]): Peripheral IV James in Place (from [facility]): No Assessment/Plan Chief Complaint/Hosp Course 1. Moderate partial closed-loop small bowel obstruction: Recurrent SBO; SBFT noted without obstruction -Clear liquids and advance diet as tolerated -If tolerating diet, may be discharged per medical team with follow-up with primary surgeon 2. Abdominal pain: Much improved -Pain management -As above 3.Hyponatremia: Resolved 4. Normocytic normochromic anemia: -Monitor and transfuse as needed 5. Leukopenia: -Monitor 6. Thrombocytopenia: -Bleeding precautions 7. Ventral hernia: Asymptomatic -Monitor 8. History of cervical cancer status post chemotherapy and radiation: -Oncology follow-up 9. Colonic diverticulosis: -Lifestyle optimization Thank you. Patient seen and examined in collaboration with Dr. Lars Figueroa. Subjective 24 Hr Interval Summary SBFT noted. + Bowel function. Patient feels much better. No fevers, chills, sob, congested cough, cp, palpitations, ambriz, dizziness, nausea, vomiting, connor rrhea, dysuria. Exam/Review of Systems Vital Signs Vitals Vital Signs Date Temp Pulse Resp B/P (MAP) Pulse Ox O2 O2 Flow FiO2 Time Delivery Rate 09/08/18 98.6 76 18 101/55 96 08:00 (70) 09/08/18 Room Air 02:00 Intake and Output 09/07/18 09/07/18 09/08/18 1515:00 23:00 07:00 IntakeIntake Total 1000 ml 1400 ml OutputOutput Total 3 ml BalanceBalance 997 ml 1400 ml Exam Free Text/Dictation Constitutional: alert, oriented, well developed Psych: nl mood/affect; No anxiety Head: normocephalic, atraumatic Eyes: nl conjunctiva, EOMI, nl lids, nl sclera ENMT: nl external ears & nose, nl lips & teeth, mucosa pink and moist, other (NGT) Neck: supple, non-tender; No jvd Respiratory: normal air movement; No congested cough Cardiovascular: regular rate and rhythm, nl pulses; No edema Gastrointestinal: soft, distended, tender (Bilateral lower quadrants), other (Ventral hernia; no abdominal skin changes); No firm, No rebound or guarding Genitourinary - Female: nl external genitalia Musculoskeletal: nl extremities to inspection; No nl gait and stance Extremities: normal pulses 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: nl mental status, nl speech, nl strength Skin: nl turgor; No rash or lesions Lymph: nl lymph nodes Results Result Diagram: 09/08/18 0544 09/08/18 0500 BELKIS AMARO NP Sep 08, 2018 13:14
[2018-09-08 14:00] VITALS: BP 106/59; PULSE 76; RESP 18
[2018-09-08 20:35] VITALS: BP 105/57; PULSE 64; RESP 16
[2018-09-09 02:42] VITALS: BP 103/52; PULSE 65; RESP 16
[2018-09-09 08:09] VITALS: BP 90/56; PULSE 68; RESP 18
[2018-09-09] MEDS: ENOXAPARIN 40 MG/0.4 ML SYG SC SCH (08:42)
[2018-09-09] MEDS ORDERED: ACETAMINOPHEN 325 MG TAB PO PRN (11:00)
--- NOTE | 2018-09-09 13:38 | PDOCDIS ---
Discharge Instructions DIAGNOSIS Discharge Diagnosis #Recurrent Small Bowel Obstruction #History of cervical cancer status post hysterectomy and chemo/radiation in 2009 #Mild hyponatremia #Normocytic anemia. #Leukopenia CONDITION [id number] Patient Condition: [id number] Stable HOME CARE INSTRUCTIONS: [id number] Diet Instructions: [id number] Low Fat /Cholesterol FOLLOW UP/APPOINTMENTS Follow-up Plan 1. Follow up with your primary doctor in one week for full check up and follow up on your blood work 2. Follow up with Dr. Lars Figueroa in one week Office Address [address] [place] [id number] Office VENICE VITALE NP Sep 09, 2018 13:38
--- NOTE | 2018-09-09 13:40 | DS ---
Date/Time of Note Date/Time of Note DATE: 09/09/18 TIME: 13:40 Discharge Summary Admission/Discharge Info Admit Date/Time Sep 07, 2018 at 02:55 Discharge Date/Time Discharge Diagnosis #Recurrent Small Bowel Obstruction #History of cervical cancer status post hysterectomy and chemo/radiation in 2009 #Mild hyponatremia #Normocytic anemia. #Leukopenia Patient Condition: Stable Hospital Course This is a 73-year-old female history of cervical cancer status post hysterectomy, chemo/radiation in 2009, history of multiple recurrent SBO, came to the hospital due to reports of abdominal pain and distention for 1 day duration. She reports that she feels that her symptoms are similar to her previous SBO which was in June of this year. As such she went to the hospital. She did have abdominal imaging again that did show her to have moderate partial closed loop small bowel obstruction within the left abdominal cavity. She was seen by general surgeon. She was placed on IV fluids. She also had NG tube initially placed. During her course of stay she did improve. We did eventually discontinue her NG tube and she was advanced in diet. Follow-up small bowel series showed no evidence of bowel obstruction. We did speak with disability case manager who did assist with getting patient outpatient follow-up with GI. The plan of care was discussed with the patient and patient verbalized understanding. On the day of discharge patient was in stable condition Discussed POC with Dr. Gandara Home Meds Reported Medications Vit C/E/Zn/Coppr/Lutein/Zeaxan (Preservision Areds 2 Softgel) 1 Each Capsule, 1 EACH PO PC BREAKFAST, CAP 09/07/18 Polyethylene Glycol* (Polyethylene Glycol*) 17 Gm Powd.pack, 17 GM PO DAILY for 30 Days, #30 07/06/18 Alendronate Sodium* (Fosamax*) 70 Mg Tablet, 70 MG PO Q7D for QTHU for 60 Days 07/06/18 [place]-3 Fatty Acids/Fish Oil (Fish Oil 1,000 mg Capsule) 1 Each Capsule, 1 EACH PO DAILY, CAP 03/30/18 Multivitamins* (Theragran*) 1 Tab Tab, 1 TAB PO DAILY, TAB 08/19/17 Follow-up Plan 1. Follow up with your primary doctor in one week for full check up and follow up on your blood work 2. Follow up with Dr. Lars Fgiueroa in one week Office Address [id number] [facility] [address] [place] [address] Office Primary Care Provider Krishna Mauricio Time spent on discharge: > 30 minutes VENICE VITALE NP Sep 09, 2018 13:40
[2018-09-09 14:00] VITALS: BP 90/52; PULSE 72; RESP 18
--- NOTE | 2018-09-10 01:42 | PN ---
Date/Time of Note Date/Time of Note DATE: 09/09/18 TIME: 11:40 Assessment/Plan Lines/Catheters IV Catheter Type (from [facility]): Peripheral IV James in Place (from [facility]): No Assessment/Plan Chief Complaint/Hosp Course 1. Moderate partial closed-loop small bowel obstruction: Recurrent SBO; SBFT noted without obstruction. Tolerated diet. -Diet -D/C planning 2. Abdominal pain: Much improved -Pain management -As above 3.Hyponatremia: Resolved 4. Normocytic normochromic anemia: -Monitor and transfuse as needed 5. Leukopenia: -Monitor 6. Thrombocytopenia: -Bleeding precautions 7. Ventral hernia: Asymptomatic -Monitor 8. History of cervical cancer status post chemotherapy and radiation: -Oncology follow-up 9. Colonic diverticulosis: -Lifestyle optimization Thank you Late entry 09/09 Subjective 24 Hr Interval Summary + Bowel function. Feels much better. No fevers, chills, sob, congested cough, cp, palpitations, ambriz, dizziness, nausea, vomiting, diarrhea, dysuria. Exam/Review of Systems Vital Signs Vitals Vital Signs Date Temp Pulse Resp B/P (MAP) Pulse Ox O2 O2 Flow FiO2 Time Delivery Rate 09/09/18 98.7 72 18 90/52 (65) 98 14:00 09/08/18 Room Air 02:00 Intake and Output 09/09/18 09/09/18 09/10/18 1515:00 23:00 07:00 IntakeIntake Total 540 ml 480 ml OutputOutput Total 3 ml BalanceBalance 540 ml 477 ml Exam Free Text/Dictation Constitutional: alert, oriented, well developed Psych: nl mood/affect; No anxiety Head: normocephalic, atraumatic Eyes: nl conjunctiva, EOMI, nl lids, nl sclera ENMT: nl external ears & nose, nl lips & teeth, mucosa pink and moist, other (NGT) Neck: supple, non-tender; No jvd Respiratory: normal air movement; No congested cough Cardiovascular: regular rate and rhythm, nl pulses; No edema Gastrointestinal: soft, distended, tender (Bilateral lower quadrants), other (Ventral hernia; no abdominal skin changes); No firm, No rebound or guarding Genitourinary - Female: nl external genitalia Musculoskeletal: nl extremities to inspection; No nl gait and stance Extremities: normal pulses 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: nl mental status, nl speech, nl strength Skin: nl turgor; No rash or lesions Lymph: nl lymph nodes Results Result Diagram: 09/08/18 0544 09/08/18 0500 INDRA MARTINEZ MD Sep 10, 2018 01:42
== END 2018-09-09 17:39 | disposition home or self-care (01) | DRG 389 ==
LOC: E/R 21:24 → PP2 09-07 02:55
PROVIDERS: ADMIT Internal Medicine; ATTEND Internal Medicine
DX: K56.600 Partial intestinal obstruction, unspecified as to cause (principal); E87.1 Hypo-osmolality and hyponatremia; D69.6 Thrombocytopenia, unspecified; D63.8 Anemia in other chronic diseases classified elsewhere; E86.0 Dehydration; R11.2 Nausea with vomiting, unspecified; K57.30 Diverticulosis of large intestine without perforation or abscess without bleeding; K43.9 Ventral hernia without obstruction or gangrene; Z90.710 Acquired absence of both cervix and uterus; Z85.41 Personal history of malignant neoplasm of cervix uteri
CPT/HCPCS: 36415; 71045; 74018; 74176; 74250; 80048; 80053; 81003; 83690; 83735; 84100; 85025; 96374; 96375; J1650; J2270; J2405; J7042; Q9967